=== PATIENT | male | born 1995 | race Caucasian/White ===

== ENCOUNTER → 2018-11-24 | Outpatient (REF) | payer OTHER ==
[~2018-11-24] MED LIST: EFFE37.5 PO; LAMI1TAB7 PO; LEXA1TAB PO; PROZ20CA11 PO; TEGR100T3 PO; ZYPR5TAB2 PO
[2018-11-24 13:07] LABS: HEMATOCRIT 47.4 % (42.0-52.0); HEMOGLOBIN 16.1 g/dl (13.5-17.5); MEAN CORPUSCULAR HEMOGLOBIN 30.1 pg (27.0-33.0); MEAN CORPUSCULAR VOLUME 88.8 fl (80.0-96.0); PLATELET COUNT, AUTOMATED 376 10^3/uL (150-450); RED BLOOD COUNT 5.34 10^6/uL (4.30-6.10); WHITE BLOOD COUNT 8.8 10^3/uL (4.0-10.0)
[2018-11-24 13:13] LABS: APPEARANCE, URINE CLEAR (CLEAR); BACTERIA, URINE AUTO NEGATIVE (NEGATIVE); BILIRUBIN, URINE AUTO NEGATIVE (NEGATIVE); BLOOD, URINE BLOOD NEGATIVE (NEGATIVE); COLOR, URINE YELLOW (YELLOW); GLUCOSE, URINE (UA) AUTO NEGATIVE (NEGATIVE); KETONE, URINE AUTO NEGATIVE (NEGATIVE); LEUKOCYTE ESTERASE, URINE AUTO NEGATIVE (NEGATIVE); MUCUS, URINE SMALL (NEGATIVE); NITRITE, URINE AUTO NEGATIVE (NEGATIVE); PROTEIN, URINE AUTO NEGATIVE (NEGATIVE); RBC, URINE AUTO 0 /HPF (0-3); SPECIFIC GRAVITY URINE AUTO 1.025 (1.002-1.035); SQUAMOUS EPITHELIAL CELL UR AU 0 /HPF (0-6); UROBILINOGEN, URINE AUTO 0.2 mg/dL (0.0-2.0); WBC, URINE AUTO 1 /HPF (0-3)
[2018-11-24 13:40] LABS: ATYPICAL LYMPH 11 % (0-5); BASOPHILS 1 % (0-1); EOSINOPHILS 5 % (0-3); LYMPHOCYTES 43 % (16-44); MONOCYTES 5 % (0-5); NEUTROPHILS 35 % (28-66)
[2018-11-24 13:41] LABS: PLATELET ESTIMATE NORMAL (NORMAL)
[2018-11-24 13:48] LABS: ALT/SGPT 31 U/L (12-78); BILIRUBIN,TOTAL 0.3 MG/DL (0.2-1.0); BLOOD UREA NITROGEN 17 MG/DL (7-18); CALCIUM LEVEL 9.5 MG/DL (8.5-10.1); CARBON DIOXIDE LEVEL 29 MEQ/L (21-32); CHLORIDE LEVEL 105 MEQ/L (98-107); CHOLESTEROL LEVEL 255 MG/DL (<200); CHOLESTEROL RISK RATIO 5.543 (<5); CREATININE FOR GFR 0.94 MG/DL (0.70-1.30); GLOMERULAR FILTRATION RATE > 60.0 (>60); GLUCOSE, FASTING 88 MG/DL (70-100); HDL CHOLESTEROL 46 MG/DL (>40); LDL CHOLESTEROL 173 MG/DL (<100); NON-HDL-C 209 MG/DL; POTASSIUM SERUM 4.4 MEQ/L (3.5-5.1); SODIUM LEVEL 140 MEQ/L (136-145); TOTAL 25(OH) VITAMIN D 27.3 NG/ML (30.0-100.0); TOTAL PROTEIN 7.8 GM/DL (6.4-8.2); TRIGLYCERIDES LEVEL 180 MG/DL (<150)
[2018-11-24 14:43] LABS: CHLAMYDIA DNA AMPLIFICATION NEGATIVE (NEGATIVE); GC DNA AMPLIFICATION NEGATIVE (NEGATIVE)
[2018-11-25 10:27] LABS: HEPATITIS B SURFACE ANTIBODY NEGATIVE (POSITIVE)
[2018-11-25 10:39] LABS: HEPATITIS B SURFACE ANTIGEN NEGATIVE (NEGATIVE)
[2018-11-25 11:06] LABS: HEPATITIS C VIRUS ABY INDEX 0.1 INDEX (<0.8)
[2018-11-25 11:07] LABS: HIV 1&2 SCREEN CENTAUR NEGATIVE (NEGATIVE)
== END ==
LOC: M SFHCCLAY 07:25
PROVIDERS: ATTEND Nurse Practitioner Family
DX: Z11.9 Encounter for screening for infectious and parasitic diseases, unspecified (principal); Z11.4 Encounter for screening for human immunodeficiency virus [HIV]; F31.9 Bipolar disorder, unspecified; G47.00 Insomnia, unspecified; Z13.6 Encounter for screening for cardiovascular disorders; Z13.21 Encounter for screening for nutritional disorder

== ENCOUNTER → 2018-12-10 | Outpatient (REF) | payer OTHER | LOC: M SFHCCLAY 10:00 | PROVIDERS: ATTEND Nurse Practitioner Family | DX: E03.9 Hypothyroidism, unspecified (principal) ==

== ENCOUNTER → 2019-03-17 | Outpatient (REF) | payer OTHER ==
[2019-03-17 13:00] LABS: CHOLESTEROL RISK RATIO 2.793 (<5); THYROID STIMULATING HORMONE 1.67 uIU/ML (0.358-3.740)
[2019-03-17 13:03] LABS: TOTAL 25(OH) VITAMIN D 31.6 NG/ML (30.0-100.0)
== END ==
LOC: M SFHCCLAY 08:23
PROVIDERS: ATTEND Nurse Practitioner Family
DX: E78.5 Hyperlipidemia, unspecified (principal); E03.9 Hypothyroidism, unspecified; E55.9 Vitamin D deficiency, unspecified

== ENCOUNTER 2019-08-14 15:46 | Emergency (ER) | payer OTHER ==
[~2019-08-14] VITALS: Ht 188 cm; Wt 100.0 kg
[2019-08-14 16:28] LABS: HEMOGLOBIN 14.8 g/dl (13.5-17.5); MEAN CORPUSCULAR HGB CONC 33.6 g/dl (32.0-36.5); MEAN CORPUSCULAR VOLUME 86.3 fl (80.0-96.0); PLATELET COUNT, AUTOMATED 358 10^3/uL (150-450); WHITE BLOOD COUNT 11.1 10^3/uL (4.0-10.0)
[2019-08-14] MEDS ORDERED: NS 1,000 ML IV SCH (16:34)
[2019-08-14 16:58] LABS: AMPHETAMINES LEVEL URINE POSITIVE (NEGATIVE); BARBITURATES URINE NEGATIVE (NEGATIVE); BENZODIAZEPINES URINE NEGATIVE (NEGATIVE); CANNABINOIDS URINE POSITIVE (NEGATIVE); COCAINE METABOLITE URINE NEGATIVE (NEGATIVE); METHADONE URINE NEGATIVE (NEGATIVE); OPIATES URINE NEGATIVE (NEGATIVE); PHENCYCLIDINE URINE NEGATIVE (NEGATIVE)
[2019-08-14 17:13] LABS: ACETAMINOPHEN LEVEL < 2.0 UG/ML (10.0-30.0); ALBUMIN 4.4 GM/DL (3.2-5.2); ALT/SGPT 48 U/L (12-78); BILIRUBIN,DIRECT 0.2 MG/DL (0.0-0.2); BILIRUBIN,TOTAL 0.6 MG/DL (0.2-1.0); BLOOD UREA NITROGEN 14 MG/DL (7-18); CALCIUM LEVEL 9.4 MG/DL (8.5-10.1); CARBON DIOXIDE LEVEL 25 MEQ/L (21-32); CHLORIDE LEVEL 107 MEQ/L (98-107); CREATININE FOR GFR 0.79 MG/DL (0.70-1.30); ETHYL ALCOHOL (ETHANOL) < 0.003 % (0.000-0.010); GLOMERULAR FILTRATION RATE > 60.0 (>60); GLUCOSE, FASTING 87 MG/DL (70-100); POTASSIUM SERUM 4.1 MEQ/L (3.5-5.1); SODIUM LEVEL 141 MEQ/L (136-145); THYROID STIMULATING HORMONE 0.978 uIU/ML (0.358-3.740); TOTAL PROTEIN 8.1 GM/DL (6.4-8.2)
--- NOTE | 2019-08-14 19:25 | ECGEPIP ---
[facility] - ED Test Date: 2019-08-14 Pat Name: JARON HA Department: Room: - Gender: Male Medical Logistics Specialist: migdalia : [id number] Requested By: Magdalena Kaba Order Number: [id number] Reading MD: Magdalena Kaba Measurements Intervals [place] Rate: 74 P: 46 MA: 143 QRS: 40 QRSD: 99 T: 46 QT: 360 QTc: 402 Interpretive Statements SINUS RHYTHM NONSPECIFIC ST T WAVE CHANGES CW 03/15/15 RATE INCREASEDD QRS NARROWER NOW Electronically Signed on 08-14-2019 19:25:33 EDT by Magdalena Kaba
[2019-08-14 21:09] VITALS: BP 138/70
== END 2019-08-14 21:11 | disposition home or self-care (01) ==
LOC: M ED 15:46
DX: F19.10 Other psychoactive substance abuse, uncomplicated (principal); F31.9 Bipolar disorder, unspecified; Z88.8 Allergy status to other drugs, medicaments and biological substances
CPT/HCPCS: 80048; 80076; 80307; 84443; 85027; 93005; 93041; 94760; 96360; 96361; 99285; G0480

== ENCOUNTER 2019-10-17 00:30 | Inpatient (IN) | payer MEDICAID, OTHER ==
[2019-10-17] MEDS ORDERED: KETOROLAC 60MG 2ML VIAL ONE (03:35)
[2019-10-17] MEDS ORDERED: MORPHINE 4 MG/ML 1ML VIAL/SYRINGE (J2270) ONE ×2 (03:35→04:21)
[2019-10-21] MEDS ORDERED: NICOTINE 21MG/24HR 1 EA TRANSDERMAL ONE (09:54)
[2019-10-21] MEDS ORDERED: PERCOCET 5MG/325MG TAB ONE (09:54)
[2019-10-21] MEDS ORDERED: ACETAMINOPHEN TAB 650MG DOSE (2X325MG) ONE (09:54)
[2019-10-21] MEDS ORDERED: MAALOX 30 ML SUSP *UDC ONE (09:54)
[2019-10-21] MEDS ORDERED: ENOXAPARIN 40MG/0.4ML SYRINGE (J1650 PER 10MG) ONE (09:54)
[2019-10-21] MEDS ORDERED: IBUPROFEN 800 MG TAB ONE (09:54)
[2019-10-21] MEDS ORDERED: DOCUSATE SODIUM 100 MG CAP ONE (09:54)
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
[2019-12-02 18:37] LABS: HEMATOCRIT 42.3 % (42.0-52.0); HEMOGLOBIN 14.3 g/dl (13.5-17.5); MEAN CORPUSCULAR HEMOGLOBIN 29.4 pg (27.0-33.0); MEAN CORPUSCULAR HGB CONC 33.8 g/dl (32.0-36.5); PLATELET COUNT, AUTOMATED 376 10^3/uL (150-450); RED BLOOD COUNT 4.86 10^6/uL (4.30-6.10); WHITE BLOOD COUNT 16.6 10^3/uL (4.0-10.0)
[2020-01-02 03:26] LABS: BLOOD UREA NITROGEN 21 MG/DL (7-18); CALCIUM LEVEL 9.4 MG/DL (8.5-10.1); CARBON DIOXIDE LEVEL 26 MEQ/L (21-32); CHLORIDE LEVEL 110 MEQ/L (98-107); GLOMERULAR FILTRATION RATE > 60.0 (>60); GLUCOSE, FASTING 108 MG/DL (70-100); POTASSIUM SERUM 4.2 MEQ/L (3.5-5.1); SODIUM LEVEL 143 MEQ/L (136-145)
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
== END 2019-10-21 09:55 | disposition left against medical advice (07) | DRG 342 ==
LOC: M ED 00:30 → M MS5PR 13:00
PROVIDERS: ADMIT Orthopaedic Surgery; ATTEND Orthopaedic Surgery
DX: S92.001A Unspecified fracture of right calcaneus, initial encounter for closed fracture (principal); F10.10 Alcohol abuse, uncomplicated; S92.002A Unspecified fracture of left calcaneus, initial encounter for closed fracture; W17.89XA Other fall from one level to another, initial encounter; Y92.009 Unspecified place in unspecified non-institutional (private) residence as the place of occurrence of the external cause; F12.90 Cannabis use, unspecified, uncomplicated

== ENCOUNTER 2019-10-23 03:45 | Inpatient (IN) | payer MEDICAID, OTHER ==
[~2019-10-23] VITALS: Ht 190.5 cm; Wt 100.0 kg
[2019-10-23] MEDS ORDERED: ACETAMINOPHEN 325 MG TAB As Ordered ONE (05:54)
[2019-10-23] MEDS ORDERED: traMADol 50 MG TAB As Ordered ONE (16:13)
[2019-10-23] MEDS ORDERED: PALIPERIDONE 3 MG ER TAB (INVEGA) As Ordered ONE (21:36)
[2019-10-23] MEDS ORDERED: OLANZapine ORAL DISINTEGRATING TAB 5MG As Ordered ONE (21:37)
[2019-10-23] MEDS ORDERED: traZODone 50 MG TAB As Ordered ONE (21:37)
[2019-10-24] MEDS ORDERED: PALIPERIDONE 3 MG ER TAB (INVEGA) As Ordered ONE ×2 (08:35→21:24)
[2019-10-24] MEDS ORDERED: IBUPROFEN 600MG TAB As Ordered ONE (11:49)
[2019-10-24] MEDS ORDERED: OLANZapine ORAL DISINTEGRATING TAB 5MG As Ordered ONE (13:21)
[2019-10-24] MEDS ORDERED: ACETAMINOPHEN TAB 650MG DOSE (2X325MG) As Ordered ONE (13:21)
[2019-10-24] MEDS ORDERED: NICOTINE 21MG/24HR 1 EA TRANSDERMAL As Ordered ONE (15:05)
[2019-10-25] MEDS ORDERED: IBUPROFEN 600MG TAB As Ordered ONE ×2 (03:57→17:04)
[2019-10-25] MEDS ORDERED: PALIPERIDONE 3 MG ER TAB (INVEGA) As Ordered ONE ×2 (08:36→21:30)
[2019-10-25] MEDS ORDERED: NICOTINE 21MG/24HR 1 EA TRANSDERMAL As Ordered ONE (08:36)
[2019-10-25] MEDS ORDERED: OLANZapine ORAL DISINTEGRATING TAB 5MG As Ordered ONE ×3 (08:36→21:31)
[2019-10-25] MEDS ORDERED: ACETAMINOPHEN TAB 650MG DOSE (2X325MG) As Ordered ONE ×2 (08:37→21:31)
[2019-10-25] MEDS ORDERED: MOM 30ML SUSPENSION UDC As Ordered ONE (19:31)
[2019-10-25] MEDS ORDERED: traZODone 50 MG TAB As Ordered ONE (23:26)
[2019-10-26] MEDS ORDERED: PALIPERIDONE 3 MG ER TAB (INVEGA) As Ordered ONE (08:17)
[2019-10-26] MEDS ORDERED: NICOTINE 21MG/24HR 1 EA TRANSDERMAL As Ordered ONE (08:17)
[2019-10-26] MEDS ORDERED: ACETAMINOPHEN TAB 650MG DOSE (2X325MG) As Ordered ONE (08:17)
[2019-10-26] MEDS ORDERED: OLANZapine ORAL DISINTEGRATING TAB 5MG As Ordered ONE (08:53)
[2019-10-26] MEDS ORDERED: diphenhydrAMINE 50MG/ML VIAL (J1200) As Ordered ONE (12:03)
[2019-10-26] MEDS ORDERED: HALOPERIDOL 5MG/ML VIAL (J1630 PER 1) As Ordered ONE (12:03)
[2019-10-26] MEDS ORDERED: IBUPROFEN 600MG TAB As Ordered ONE (12:03)
[2019-10-26] MEDS ORDERED: LORazepam 2 MG/ML VIAL As Ordered ONE (12:04)
[2019-10-26] MEDS ORDERED: MOM 30ML SUSPENSION UDC PO PRN (18:45)
[2019-10-26] MEDS ORDERED: MAALOX 30 ML SUSP *UDC PO PRN (19:00)
[2019-10-26] MEDS: PALIPERIDONE 3 MG ER TAB (INVEGA) PO SCH (21:38)
[2019-10-26] MEDS: IBUPROFEN 600MG TAB PO PRN (22:12)
[2019-10-27 06:10] VITALS: BP 148/75
[2019-10-27] MEDS: NICOTINE 21MG/24HR 1 EA TRANSDERMAL TD SCH (08:15)
[2019-10-27] MEDS: PALIPERIDONE 3 MG ER TAB (INVEGA) PO SCH ×2 (08:16→21:01)
[2019-10-27] MEDS: IBUPROFEN 600MG TAB PO PRN ×2 (08:17→16:24)
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
--- NOTE | 2019-10-27 08:41 | MHIPNPDOC ---
[facility] Progress Note Progress Note DATE OF SERVICE: 10/27/19 Subjective HPI: Yoandy presents today for a follow-up. Patient notes that he was yelling and screaming. He notes his legs have been in pain. FAMILY HISTORY: Patient notes that home is stable for him at the moment. Objective Behavior: Hyper-verbal and tangential. Affect: Elated. Judgement: Poor. Insight: Poor. Assessment F31.2 Bipolar disorder, current episode manic severe with psychotic features Plan As patient continues to improve, he will eventually be taken off the 1 to 1. Continue Invega 3 mg BID. Add Depakote 250 mg BID to help augment as he appears to still be quite elated. Vital Signs Vital Signs Date Time Temp Pulse Resp B/P (MAP) Pulse Ox O2 Delivery O2 Flow Rate FiO2 10/27/19 06:10 97.0 73 18 148/75 (99) Current Medications Current Medications Medications (Trade) Dose Ordered Sig/Dez Route PRN Reason Start Time Stop Time Status Last Admin Dose Admin Acetaminophen (Tylenol Tab) 650 mg Q6H PRN PO HEADACHE OR DISCOMFORT 10/26/19 19:00 Al Hydrox/Mg Hydrox/Simethicone (Mylanta) 30 ml Q4H PRN PO HEARTBURN/INDIGESTION 10/26/19 19:00 Ibuprofen (Advil) 600 mg Q6H PRN PO PAIN 10/26/19 19:00 10/27/19 08:17 Magnesium Hydroxide (Milk Of Magnesia) 10 ml DAILYPRN PRN PO CONSTIPATION 10/26/19 18:45 Nicotine (Nicoderm Cq 21mg) 1 patch DAILY TD 10/27/19 09:00 Olanzapine (ZyPREXA ZYDIS) 5 mg Q4H PRN PO ANXIETY/AGITATION 10/26/19 19:00 Paliperidone (Invega) 3 mg BID PO 10/26/19 21:00 10/27/19 08:16 Trazodone HCl (Desyrel) 50 mg QHS PRN PO INSOMNIA 10/26/19 19:00 Allergies Coded Allergies: aripiprazole (Verified Allergy, Unknown, 08/14/19) nauseous quetiapine (Verified Allergy, Unknown, 08/14/19) nauseous MARC SKELTON DO Oct 27, 2019 08:41
[2019-10-27] MEDS: ACETAMINOPHEN TAB 650MG DOSE (2X325MG) PO PRN ×2 (11:53→21:01)
[2019-10-27] MEDS: OLANZapine ORAL DISINTEGRATING TAB 5MG PO PRN (14:47)
[2019-10-27 16:46] VITALS: BP 136/68
[2019-10-27] MEDS: traZODone 50 MG TAB PO PRN (21:01)
[2019-10-28 06:53] VITALS: BP 112/70
[2019-10-28] MEDS: OLANZapine ORAL DISINTEGRATING TAB 5MG PO PRN (07:43)
[2019-10-28] MEDS: ACETAMINOPHEN TAB 650MG DOSE (2X325MG) PO PRN ×2 (07:44→19:02)
[2019-10-28] MEDS: PALIPERIDONE 3 MG ER TAB (INVEGA) PO SCH ×2 (09:03→23:20)
[2019-10-28] MEDS: NICOTINE 21MG/24HR 1 EA TRANSDERMAL TD SCH (09:04)
--- NOTE | 2019-10-28 11:47 | MHIPNPDOC ---
[facility] Progress Note Progress Note DATE OF SERVICE: 10/28/19 HPI: Yoandy presents today for a follow-up. Patient notes that he gets irritated when he is hungry. Patient is off the 1 to 1. He notes that he did not want to be a part of society when he was admitted. Patient denies suicidal thoughts. Objective Appearance: Well nourished. Fair hygiene. Appears to be stated age. Well groomed. Mood: Appropriately reactive. Generally good. Less elated euthymic. Speech: Normal rate. Spontaneous and Fluid. Normal volume. More fluid speech. Thought Form: Logical. Linear and goal directed. Judgement: [place] improving. Insight: Insights improving. Assessment F25.9 Schizoaffective disorder, unspecified Plan Patient will be arranged for home services, specifically an orthopedic for his legs. Patient will receive injections of Invega before being discharge. Continuing 3 mg BID, with second shot before potentially leaving on Friday, making good progress, will likely be resolved. Vital Signs Vital Signs Date Time Temp Pulse Resp B/P (MAP) Pulse Ox O2 Delivery O2 Flow Rate FiO2 10/28/19 06:53 97.5 84 18 112/70 (84) Current Medications Current Medications Medications (Trade) Dose Ordered Sig/Dez Route PRN Reason Start Time Stop Time Status Last Admin Dose Admin Acetaminophen (Tylenol Tab) 650 mg Q6H PRN PO HEADACHE OR DISCOMFORT 10/26/19 19:00 10/28/19 07:44 Al Hydrox/Mg Hydrox/Simethicone (Mylanta) 30 ml Q4H PRN PO HEARTBURN/INDIGESTION 10/26/19 19:00 Home Med (Med Rec Complete!) ASDIRECTED XX 10/27/19 09:30 10/27/19 09:31 DC Ibuprofen (Advil) 600 mg Q6H PRN PO PAIN 10/26/19 19:00 10/27/19 16:24 Magnesium Hydroxide (Milk Of Magnesia) 10 ml DAILYPRN PRN PO CONSTIPATION 10/26/19 18:45 Nicotine (Nicoderm Cq 21mg) 1 patch DAILY TD 10/27/19 09:00 10/28/19 09:04 Olanzapine (ZyPREXA ZYDIS) 5 mg Q4H PRN PO ANXIETY/AGITATION 10/26/19 19:00 10/28/19 07:43 Paliperidone (Invega) 3 mg BID PO 10/26/19 21:00 10/28/19 09:03 Trazodone HCl (Desyrel) 50 mg QHS PRN PO INSOMNIA 10/26/19 19:00 10/27/19 21:01 Allergies Coded Allergies: aripiprazole (Verified Allergy, Unknown, 08/14/19) nauseous quetiapine (Verified Allergy, Unknown, 08/14/19) nauseous MARC SKELTON DO Oct 28, 2019 11:47
[2019-10-28] MEDS ORDERED: PALIPERIDONE PALMITATE 234MG/1.5ML INJ (INVEGA)(FREE PSY INPT ONLY) IM ONE (14:00)
[2019-10-28 18:00] VITALS: BP 137/68
[2019-10-29 07:16] VITALS: BP 122/65
--- NOTE | 2019-10-29 08:01 | MHIPNPDOC ---
[facility] Progress Note Progress Note DATE OF SERVICE: 10/29/19 Subjective HPI: Yoandy presents today for a follow up on his medication. He reports his legs are doing well. He denies side effects from current medications. He denies suicidal thoughts. Objective Appearance: Appears to be stated age. Well groomed. Well nourished. Behavior: Cooperative with good eye contact. Pleasant. Engaged. Affect: Appropriate to context. Full range. Mood: Euthymic. Appropriately reactive. Generally good. Speech: Spontaneous and Fluid. Normal rate. Normal volume. Motor: No gross motor abnormalities. Cognition: Alert, Attentive, and Oriented to person, place, time. Memory: No formal testing. No gross abnormalities of short or director home health memory noted during interview. Thought Form: Linear and goal directed. Thought Content: No evidence of delusions. No evidence of suicidal ideation. No thoughts of self harm. No evidence of aggressive or homicidal ideation. Perception: No perceptual abnormalities noted. Judgement: Intact as evidenced by decision making in the recent past. Insight: Good insight into symptoms and treatment options. Assessment F31.0 Bipolar disorder, current episode hypomanic Plan Potential discharge Friday, patient is doing well and returning to normal mental state exam. Give second injection in a week. Vital Signs Vital Signs Date Time Temp Pulse Resp B/P (MAP) Pulse Ox O2 Delivery O2 Flow Rate FiO2 10/29/19 07:16 98.0 94 18 122/65 (84) 99 Room Air Current Medications Current Medications Medications (Trade) Dose Ordered Sig/Dez Route PRN Reason Start Time Stop Time Status Last Admin Dose Admin Acetaminophen (Tylenol Tab) 650 mg Q6H PRN PO HEADACHE OR DISCOMFORT 10/26/19 19:00 10/28/19 19:02 Al Hydrox/Mg Hydrox/Simethicone (Mylanta) 30 ml Q4H PRN PO HEARTBURN/INDIGESTION 10/26/19 19:00 Home Med (Med Rec Complete!) ASDIRECTED XX 10/27/19 09:30 10/27/19 09:31 DC Ibuprofen (Advil) 600 mg Q6H PRN PO PAIN 10/26/19 19:00 10/27/19 16:24 Magnesium Hydroxide (Milk Of Magnesia) 10 ml DAILYPRN PRN PO CONSTIPATION 10/26/19 18:45 Nicotine (Nicoderm Cq 21mg) 1 patch DAILY TD 10/27/19 09:00 10/28/19 09:04 Olanzapine (ZyPREXA ZYDIS) 5 mg Q4H PRN PO ANXIETY/AGITATION 10/26/19 19:00 10/28/19 07:43 Paliperidone (Invega) 3 mg BID PO 10/26/19 21:00 10/28/19 23:20 Trazodone HCl (Desyrel) 50 mg QHS PRN PO INSOMNIA 10/26/19 19:00 10/27/19 21:01 Allergies Coded Allergies: aripiprazole (Verified Allergy, Unknown, 08/14/19) nauseous quetiapine (Verified Allergy, Unknown, 08/14/19) nauseous MARC SKELTON DO Oct 29, 2019 08:01
[2019-10-29] MEDS: NICOTINE 21MG/24HR 1 EA TRANSDERMAL TD SCH (09:00)
[2019-10-29] MEDS: PALIPERIDONE 3 MG ER TAB (INVEGA) PO SCH ×2 (09:28→20:31)
[2019-10-29 16:00] VITALS: BP 126/60
[2019-10-29] MEDS: traZODone 50 MG TAB PO PRN (20:31)
[2019-10-30 06:20] VITALS: BP 100/62
[2019-10-30] MEDS: NICOTINE 21MG/24HR 1 EA TRANSDERMAL TD SCH (08:40)
[2019-10-30] MEDS: PALIPERIDONE 3 MG ER TAB (INVEGA) PO SCH ×2 (08:40→20:09)
[2019-10-30] MEDS ORDERED: MOM 30ML SUSPENSION UDC PO PRN (13:00)
[2019-10-30 16:10] VITALS: BP 124/75
[2019-10-30] MEDS: OLANZapine ORAL DISINTEGRATING TAB 5MG PO PRN (19:51)
[2019-10-30] MEDS: traZODone 50 MG TAB PO PRN (20:09)
[2019-10-31 06:42] VITALS: BP 112/60
[2019-10-31] MEDS ORDERED: PALIPERIDONE PALMITATE 156MG/1ML INJ(INVEGA)(FREE PSY INPT ONLY) IM ONE (09:00)
[2019-10-31] MEDS: NICOTINE 21MG/24HR 1 EA TRANSDERMAL TD SCH (09:00)
[2019-10-31] MEDS: PALIPERIDONE 3 MG ER TAB (INVEGA) PO SCH ×2 (09:32→20:08)
[2019-10-31 16:19] VITALS: BP 138/82
[2019-10-31 16:23] VITALS: BP 121/69
[2019-10-31] MEDS: traZODone 50 MG TAB PO PRN (20:08)
[2019-10-31] MEDS: OLANZapine ORAL DISINTEGRATING TAB 5MG PO PRN (23:32)
[2019-11-01 06:16] VITALS: BP 116/71
[2019-11-01] MEDS: NICOTINE 21MG/24HR 1 EA TRANSDERMAL TD SCH (09:00)
[2019-11-01] MEDS: PALIPERIDONE 3 MG ER TAB (INVEGA) PO SCH ×2 (09:24→21:54)
--- NOTE | 2019-11-01 11:39 | MHIPNPDOC ---
[facility] Progress Note Progress Note DATE OF SERVICE: 11/01/19 Subjective HPI: Yoandy presents today for a check-in. He is currently trying to figure out whether to use a wheelchair or crutches based off mobility and healing issues, and whether there is equipment for him to take home. Objective Appearance: Well groomed. Well nourished. Appears to be stated age. Behavior: Engaged. Pleasant. Cooperative with good eye contact. Affect: Appropriate to context. Full range. Mood: Generally good. Appropriately reactive. Euthymic. Speech: Spontaneous and Fluid. Normal rate. Normal volume. Motor: No gross motor abnormalities. Cognition: Alert, Attentive, and Oriented to person, place, time. Memory: No formal testing. No gross abnormalities of short or care home memory noted during interview. Thought Form: Linear and goal directed. Thought Content: No thoughts of self harm. No evidence of suicidal ideation. No evidence of delusions. No evidence of aggressive or homicidal ideation. Perception: No perceptual abnormalities noted. Judgement: Intact as evidenced by decision making in the recent past. Insight: Good insight into symptoms and treatment options. Assessment F31.10 Bipolar disorder, current episode manic without psychotic features, unspecified Plan Patient will be discharged tomorrow and will need to obtain wheelchair Wheelchair and PT issues are primarily holding up discharge Patient does not require any oral medications once he leaves Vital Signs Vital Signs Date Time Temp Pulse Resp B/P (MAP) Pulse Ox O2 Delivery O2 Flow Rate FiO2 11/01/19 06:16 97.8 55 16 116/71 (86) 10/30/19 06:20 Room Air 10/29/19 07:16 99 Current Medications Current Medications Medications (Trade) Dose Ordered Sig/Dez Route PRN Reason Start Time Stop Time Status Last Admin Dose Admin Acetaminophen (Tylenol Tab) 650 mg Q6H PRN PO HEADACHE OR DISCOMFORT 10/26/19 19:00 10/28/19 19:02 Al Hydrox/Mg Hydrox/Simethicone (Mylanta) 30 ml Q4H PRN PO HEARTBURN/INDIGESTION 10/26/19 19:00 Home Med (Med Rec Complete!) ASDIRECTED XX 10/27/19 09:30 10/27/19 09:31 DC Ibuprofen (Advil) 600 mg Q6H PRN PO PAIN 10/26/19 19:00 10/27/19 16:24 Magnesium Hydroxide (Milk Of Magnesia) 10 ml DAILYPRN PRN PO CONSTIPATION 10/26/19 18:45 10/30/19 13:01 DC Magnesium Hydroxide (Milk Of Magnesia) 30 ml DAILYPRN PRN PO CONSTIPATION 10/30/19 13:00 Nicotine (Nicoderm Cq 21mg) 1 patch DAILY TD 10/27/19 09:00 10/28/19 09:04 Olanzapine (ZyPREXA ZYDIS) 5 mg Q4H PRN PO ANXIETY/AGITATION 10/26/19 19:00 10/31/19 23:32 Paliperidone (Invega) 3 mg BID PO 10/26/19 21:00 11/01/19 09:24 Trazodone HCl (Desyrel) 50 mg QHS PRN PO INSOMNIA 10/26/19 19:00 10/31/19 20:08 Allergies Coded Allergies: aripiprazole (Verified Allergy, Unknown, 08/14/19) nauseous quetiapine (Verified Allergy, Unknown, 08/14/19) nauseous MARC SKELTON DO Nov 01, 2019 11:39
[2019-11-01 17:35] VITALS: BP 133/77
[2019-11-02 06:50] VITALS: BP 147/72
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
[2019-11-02] MEDS ORDERED: INVE156I IM (08:11)
[2019-11-02] MEDS ORDERED: NICO21PAT TD (08:11)
[2019-11-02] MEDS: NICOTINE 21MG/24HR 1 EA TRANSDERMAL TD SCH (09:00)
[2019-11-02] MEDS: PALIPERIDONE 3 MG ER TAB (INVEGA) PO SCH (09:18)
[2019-12-06 13:34] LABS: BASO % 0.3 % (0.0-1.0); EOS # 0.1 10^3/uL (0.0-0.5); EOS % 1.3 % (0.0-3.0); HEMATOCRIT 44.1 % (42.0-52.0); HEMOGLOBIN 15.5 g/dl (13.5-17.5); LYMPH # 2.9 10^3/uL (1.5-5.0); LYMPH % 26.3 % (24.0-44.0); MEAN CORPUSCULAR HGB CONC 35.1 g/dl (32.0-36.5); MEAN CORPUSCULAR VOLUME 85.3 fl (80.0-96.0); MONO # 1.2 10^3/uL (0.0-0.8); MONO % 10.6 % (0.0-5.0); NEUTROPHILS # 6.8 10^3/uL (1.5-8.5); NEUTROPHILS % 61.2 % (36.0-66.0); PLATELET COUNT, AUTOMATED 440 10^3/uL (150-450); RED BLOOD COUNT 5.17 10^6/uL (4.30-6.10); WHITE BLOOD COUNT 11.1 10^3/uL (4.0-10.0)
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
--- NOTE | 2019-12-18 12:50 | MHIPN ---
DATE: 10/25/2019 NOTE: I just want to clarify that the computer system in the hospital has been down for awhile now and so the only information I have on this patient is what was obtained from the Emergency Room Record. HISTORY OF PRESENT ILLNESS: The patient was brought to the interview room in his wheelchair because he fractured his heels when he jumped off of a building. The patient became very angry because I asked him that I wanted him to maintain a certain appropriate distance due to the current Coronavirus Pandemic. As I said he became angry and he told me that he did not want to talk to me and he wanted to leave the room. MENTAL STATUS EXAM: I am unable to complete. DIAGNOSIS: Unspecified psychiatric disorder. TREATMENT PLAN: The plan of course will be to continue his current treatment. Currently the patient is on Invega at this point. JOSE
[2020-01-16 11:49] LABS: ACETAMINOPHEN LEVEL < 2.0 UG/ML (10.0-30.0); ALBUMIN 4.3 GM/DL (3.2-5.2); ALT/SGPT 32 U/L (12-78); AMPHETAMINES LEVEL URINE NEGATIVE (NEGATIVE); BARBITURATES URINE NEGATIVE (NEGATIVE); BENZODIAZEPINES URINE NEGATIVE (NEGATIVE); BILIRUBIN,DIRECT 0.3 MG/DL (0.0-0.2); BILIRUBIN,TOTAL 0.9 MG/DL (0.2-1.0); BLOOD UREA NITROGEN 20 MG/DL (7-18); CALCIUM LEVEL 10.3 MG/DL (8.5-10.1); CANNABINOIDS URINE POSITIVE (NEGATIVE); CARBON DIOXIDE LEVEL 26 MEQ/L (21-32); CHLORIDE LEVEL 106 MEQ/L (98-107); COCAINE METABOLITE URINE POSITIVE (NEGATIVE); CREATININE FOR GFR 0.97 MG/DL (0.70-1.30); ETHYL ALCOHOL (ETHANOL) < 0.003 % (0.000-0.010); GLOMERULAR FILTRATION RATE > 60.0 (>60); GLUCOSE, FASTING 105 MG/DL (70-100); METHADONE URINE NEGATIVE (NEGATIVE); OPIATES URINE NEGATIVE (NEGATIVE); PHENCYCLIDINE URINE NEGATIVE (NEGATIVE); POTASSIUM SERUM 4.5 MEQ/L (3.5-5.1); SALICYLATE LEVEL < 1.7 MG/DL (5.0-30.0); SODIUM LEVEL 137 MEQ/L (136-145); TOTAL PROTEIN 8.1 GM/DL (6.4-8.2)
== END 2019-11-02 15:30 | disposition home or self-care (01) | DRG 753 ==
LOC: M ED 03:45 → M PSY 06:38
PROVIDERS: ADMIT Psychiatry & Neurology Psychiatry; ATTEND Psychiatry & Neurology Addiction Medicine
DX: F31.9 Bipolar disorder, unspecified (principal); Z88.8 Allergy status to other drugs, medicaments and biological substances

== ENCOUNTER 2019-11-08 20:08 | Inpatient (IN) | payer MEDICAID, OTHER ==
[~2019-11-08] VITALS: Ht 190.5 cm; Wt 107.0 kg
[~2019-11-08 20:08] MED LIST changes: +INVE156I IM; +NICO21PAT TD
[2019-11-08] MEDS ORDERED: LORazepam 1 MG TAB PO ONE (20:30)
[2019-11-08] MEDS ORDERED: INVE156I IM (21:57)
[2019-11-08] MEDS ORDERED: MOM 30ML SUSPENSION UDC PO PRN (22:00)
[2019-11-08] MEDS ORDERED: MAALOX 30 ML SUSP *UDC PO PRN (22:00)
[2019-11-08 23:01] VITALS: BP 152/82
[2019-11-08] MEDS: traZODone 50 MG TAB PO PRN (23:26)
[2019-11-09 06:27] VITALS: BP 111/59
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
[2019-11-09] MEDS ORDERED: VENLAFAXINE **XR** 37.5 MG CAPSULE PO ONE (11:30)
[2019-11-09 17:56] VITALS: BP 101/49
[2019-11-09] MEDS: OXcarbazepine 150 MG TAB PO SCH (20:32)
[2019-11-09] MEDS: traZODone 50 MG TAB PO PRN (20:32)
[2019-11-09] MEDS ORDERED: OXcarbazepine 150 MG TAB PO SCH (21:00)
[2019-11-10 06:46] VITALS: BP 130/63
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
[2019-11-10] MEDS: VENLAFAXINE **XR** 37.5 MG CAPSULE PO SCH (09:08)
[2019-11-10] MEDS ORDERED: hydrOXYzine 25 MG TAB PO ONE (12:00)
[2019-11-10] MEDS: hydrOXYzine 25 MG TAB PO PRN (17:47)
[2019-11-10 17:57] VITALS: BP 121/57
[2019-11-10] MEDS: traZODone 50 MG TAB PO PRN (20:15)
[2019-11-10] MEDS: OXcarbazepine 150 MG TAB PO SCH (20:15)
--- NOTE | 2019-11-10 20:20 | HPEPDOC ---
[facility] Medical History & Physical Date of Admission Nov 09, 2019 Date of Service: Nov 10, 2019 History and Physical CHIEF COMPLAINT: suicidal ideation HISTORY OF PRESENT ILLNESS: presenting for inpatient behavioral health management for suicidal ideation. PAST MEDICAL HISTORY: no known conditions PAST SURGICAL HISTORY: no recent surgeries SOCIAL HISTORY: Tobacco use:denied ETOH: denied Illicit drug use: denied FAMILY HISTORY: Father: HTN, CAD Mother: DM ALLERGIES: Please see below. REVIEW OF SYSTEMS: CONSTITUTIONAL: no weight loss, no fevers, no chills HEENT: no headaches, no vision changes CARDIOVASCULAR: no CP, no palpitations RESPIRATORY: no SOB, no ciugh GASTROINTESTINAL: no n/v GENITOURINARY: no dysuria SKIN: no rash MUSCULOSKELETAL: no pain HOME MEDICATIONS: Please see below. PHYSICAL EXAMINATION: VITAL SIGNS: see below GENERAL APPEARANCE: no acute distress HEENT: normocephalic CARDIOVASCULAR: RRR LUNGS: clear on auscultation ABDOMEN: soft, nontender MUSCULOSKELETAL: grossly normal NEUROLOGICAL: no focal deficits PSYCHIATRIC: normal mood LABORATORY DATA: See below. IMAGING: MICROBIOLOGY: Please see below. ASSESSMENT and PLAN 24 y.o M with no known medical conditions presented for inpatient treatment of major depressive disorder following SI - continue psych treatment per psychiatrist -no known medical conditions Vital Signs Vital Signs Date Time Temp Pulse Resp B/P (MAP) Pulse Ox O2 Delivery O2 Flow Rate FiO2 11/10/19 17:57 99.1 94 16 121/57 (78) 11/10/19 06:46 Room Air 11/08/19 23:01 96 Home Medications Scheduled Paliperidone Palmitate (Invega Sustenna) 156 Mg/1 Ml Syringe, 156 MG IM QMONTH Allergies Coded Allergies: haloperidol (Verified Adverse Reaction, Intermediate, EPS RXN WITH UNSPECIFIED ANTIPSYCHOTROPICS, 11/08/19) aripiprazole (Verified Adverse Reaction, Mild, 11/08/19) nauseous quetiapine (Verified Adverse Reaction, Mild, 11/08/19) nauseous A-FIB/CHADSVASC A-FIB History Current/History of A-Fib/PAF?: No Current PO Anticoag Therapy: No CONCHA GALEAS DO Nov 10, 2019 20:20
[2019-11-11 07:03] VITALS: BP 102/50
--- NOTE | 2019-11-11 08:11 | MHIPNPDOC ---
[facility] Progress Note Progress Note DATE OF SERVICE: 11/11/19 Subjective HPI: Dewey presents today for a regular recheck. He notes that he is not sleeping well at night, and he notes that Clonidine used to help him stay asleep as a child. He states that he is dreaming again at night after years of not being able to dream. He denies suicidal ideation. He states that he wants to stay in the facility until he feels he is ready to leave. Objective Appearance: Good hygiene. Speech: Spontaneous and Fluid. Thought Form: Linear and logical. Friendly, although mildly anxious due to situational issues on the unit. Thought Content: Denies any suicidal or homicidal ideation. Judgement: Fair. Insight: Fair. Assessment F31.32 Bipolar disorder, current episode depressed, moderate Plan Increase Trileptal to 300 mg nightly. Continue Effexor 75 mg extended release. Will add Clonidine 0.1 mg QHS for sleep as patient reports broken sleep, which is a significant problem for his bipolar disorder in previous episodes of nuria. Will continue on a voluntary status, estimate discharge potentially next week as patient resolves. Will encourage patient to engage fully. Vital Signs Vital Signs Date Time Temp Pulse Resp B/P (MAP) Pulse Ox O2 Delivery O2 Flow Rate FiO2 11/11/19 07:03 97.8 60 16 102/50 (67) 98 Room Air Current Medications Current Medications Medications (Trade) Dose Ordered Sig/Dez Route PRN Reason Start Time Stop Time Status Last Admin Dose Admin Acetaminophen (Tylenol Tab) 650 mg Q6HP PRN PO HEADACHE or DISCOMFORT 11/08/19 22:00 Al Hydrox/Mg Hydrox/Simethicone (Mylanta) 30 ml Q4HP PRN PO HEARTBURN/INDIGESTION 11/08/19 22:00 Home Med (Med Rec Complete!) ASDIRECTED XX 11/08/19 22:00 11/08/19 21:59 DC Hydroxyzine HCl (Atarax) 25 mg Q4HP PRN PO ANXIETY/AGITATION 11/10/19 16:00 11/10/19 17:47 Magnesium Hydroxide (Milk Of Magnesia) 30 ml DAILYPRN PRN PO CONSTIPATION 11/08/19 22:00 Oxcarbazepine (Trileptal) 75 mg BID PO 11/09/19 21:00 11/09/19 11:42 DC Oxcarbazepine (Trileptal) 150 mg QHS PO 11/09/19 21:00 11/10/19 20:15 Trazodone HCl (Desyrel) 50 mg QHSP PRN PO INSOMNIA 11/08/19 22:00 11/10/19 20:15 Venlafaxine HCl (Effexor Xr) 37.5 mg DAILY PO 11/10/19 09:00 11/10/19 09:08 Allergies Coded Allergies: haloperidol (Verified Adverse Reaction, Intermediate, EPS RXN WITH UNSPECIFIED ANTIPSYCHOTROPICS, 11/08/19) aripiprazole (Verified Adverse Reaction, Mild, 11/08/19) nauseous quetiapine (Verified Adverse Reaction, Mild, 11/08/19) nauseous MARC SKELTON DO Nov 11, 2019 08:11
[2019-11-11] MEDS: VENLAFAXINE **XR** 37.5 MG CAPSULE PO SCH (08:18)
[2019-11-11] MEDS: hydrOXYzine 25 MG TAB PO PRN (12:44)
[2019-11-11 16:46] VITALS: BP 136/63
[2019-11-11] MEDS: cloNIDine 0.1 MG TAB PO SCH (20:23)
[2019-11-11] MEDS: OXcarbazepine 150 MG TAB PO SCH (20:25)
[2019-11-12 06:29] VITALS: BP 113/51
[2019-11-12] MEDS: ACETAMINOPHEN TAB 650MG DOSE (2X325MG) PO PRN ×2 (08:16→18:41)
[2019-11-12] MEDS: VENLAFAXINE **XR** 37.5 MG CAPSULE PO SCH (08:16)
--- NOTE | 2019-11-12 10:25 | MHIPNPDOC ---
[facility] Progress Note Progress Note DATE OF SERVICE: 11/12/19 HPI: Dewey presents today for concerns regarding his heel pain. Patient is taking pain medication in order to alleviate his heel pain. He is asking for an x-ray. He denies of suicidal thoughts , but he is lack of motivation due to pandemic. Patient doesnt know how he feels about life. He also admits having photographic memory, and he needs a lot of therapy. Patient reports having episode for one year long. Patient met with today. He reports he is having some dysphoria and reports that he feels somewhat upset. He reports he has been thinking a lot about court issues, but its become much more anxious and depressed. The patient reports that he feels like he is coming against his depression out. He reports that the increase Trileptal to 300 have been helpful with his mood becoming more stable. Staff reporting he is still friendly in minimal although smiley more late and unusual. MEDICATIONS: He is currently taking antidepressant . Patient reports that higher dose of antidepressant can calm him down. MEDICAL HISTORY: Patient has history of bipolar depression. FAMILY HISTORY: In regard to family history, his sister ( Melva) has episode. Objective Appearance: Appears to be stated age. Well nourished. Well groomed. Speech: Spontaneous and Fluid. Normal rate. Normal volume. Cognition: Alert, Attentive, and Oriented to person, place, time. Thought Form: Linear and goal directed. logical. Thought Content: No evidence of aggressive or homicidal ideation. No evidence of delusions. No thoughts of self harm. No evidence of suicidal ideation. Has a r elatively labile affect. Judgement: Intact as evidenced by decision making in the recent past. Assessment F31.30 Bipolar disorder, current episode depressed, mild or moderate severity, unspecified Plan Bipolar disorder, current episode depressed. Discontinue the Effexor as it could be causing acid syndrome, which is antidepressant associated chronic dysphoria and irritability. Continue Trileptal 300 mg nightly and Clonidine, His invega will likely do well with a mood stabilizer, especially given his history of bipolar disorder. Will continue to monitor patient reports as he continues to want to stay to get treatment. Vital Signs Vital Signs Date Time Temp Pulse Resp B/P (MAP) Pulse Ox O2 Delivery O2 Flow Rate FiO2 11/12/19 06:29 98.1 64 12 113/51 (71) 95 Room Air Current Medications Current Medications Medications (Trade) Dose Ordered Sig/Dez Route PRN Reason Start Time Stop Time Status Last Admin Dose Admin Acetaminophen (Tylenol Tab) 650 mg Q6HP PRN PO HEADACHE or DISCOMFORT 11/08/19 22:00 11/12/19 08:16 Al Hydrox/Mg Hydrox/Simethicone (Mylanta) 30 ml Q4HP PRN PO HEARTBURN/INDIGESTION 11/08/19 22:00 Clonidine HCl (Catapres) 0.1 mg QHS PO 11/11/19 21:00 11/11/19 20:23 Home Med (Med Rec Complete!) ASDIRECTED XX 11/08/19 22:00 11/08/19 21:59 DC Hydroxyzine HCl (Atarax) 25 mg Q4HP PRN PO ANXIETY/AGITATION 11/10/19 16:00 11/11/19 12:44 Magnesium Hydroxide (Milk Of Magnesia) 30 ml DAILYPRN PRN PO CONSTIPATION 11/08/19 22:00 Oxcarbazepine (Trileptal) 75 mg BID PO 11/09/19 21:00 11/09/19 11:42 DC Oxcarbazepine (Trileptal) 150 mg QHS PO 11/09/19 21:00 11/11/19 10:16 DC 11/10/19 20:15 Oxcarbazepine (Trileptal) 300 mg QHS PO 11/11/19 21:00 11/11/19 20:25 Trazodone HCl (Desyrel) 50 mg QHSP PRN PO INSOMNIA 11/08/19 22:00 11/10/19 20:15 Venlafaxine HCl (Effexor Xr) 37.5 mg DAILY PO 11/10/19 09:00 11/12/19 08:16 Allergies Coded Allergies: haloperidol (Verified Adverse Reaction, Intermediate, EPS RXN WITH UNSPECIFIED ANTIPSYCHOTROPICS, 11/08/19) aripiprazole (Verified Adverse Reaction, Mild, 11/08/19) nauseous quetiapine (Verified Adverse Reaction, Mild, 11/08/19) nauseous MARC SKELTON DO Nov 12, 2019 10:25
[2019-11-12] MEDS: hydrOXYzine 25 MG TAB PO PRN ×2 (11:26→18:38)
[2019-11-12] MEDS: cloNIDine 0.1 MG TAB PO SCH (20:05)
[2019-11-12] MEDS: OXcarbazepine 150 MG TAB PO SCH (20:05)
[2019-11-13 06:21] VITALS: BP 95/51
[2019-11-13] MEDS: ACETAMINOPHEN TAB 650MG DOSE (2X325MG) PO PRN (18:00)
[2019-11-13] MEDS: OXcarbazepine 150 MG TAB PO SCH (20:27)
[2019-11-13] MEDS: cloNIDine 0.1 MG TAB PO SCH (20:28)
[2019-11-14 06:37] VITALS: BP 94/44
[2019-11-14] MEDS: ACETAMINOPHEN TAB 650MG DOSE (2X325MG) PO PRN (18:29)
[2019-11-14 18:41] VITALS: BP 145/73
[2019-11-14] MEDS: OXcarbazepine 150 MG TAB PO SCH (20:36)
[2019-11-14] MEDS: cloNIDine 0.1 MG TAB PO SCH (20:36)
[2019-11-15] MEDS: traZODone 50 MG TAB PO PRN ×2 (00:53→21:18)
[2019-11-15 06:29] VITALS: BP 106/50
[2019-11-15 17:52] VITALS: BP 111/57
[2019-11-15] MEDS: ACETAMINOPHEN TAB 650MG DOSE (2X325MG) PO PRN (18:32)
[2019-11-15] MEDS: OXcarbazepine 150 MG TAB PO SCH (20:37)
[2019-11-15] MEDS: cloNIDine 0.1 MG TAB PO SCH (20:40)
[2019-11-16 06:18] VITALS: BP 115/68
--- NOTE | 2019-11-16 09:50 | MHIPNPDOC ---
[facility] Progress Note Progress Note DATE OF SERVICE: 11/16/19 Subjective HPI: Patient I met with today reports that hes not doing as well. Reports that he was very upset about being interrupted during a discussion about his trauma. Objective Appearance: Well nourished. Well groomed. Appears to be stated age. Affect: Mildly labile. Mood: Bad. Speech: Normal volume. Normal rate. Spontaneous and Fluid. Cognition: Alert, Attentive, and Oriented to person, place, time. Thought Form: Linear and goal directed. Judgement: Fair. Insight: Fair. Assessment F31.9 Bipolar disorder, unspecified Plan Continue Trileptal and likely increase to 300 mg daily. Invega shot previously given. Discontinue Effexor as its possibly causing some mixed features. Vital Signs Vital Signs Date Time Temp Pulse Resp B/P (MAP) Pulse Ox O2 Delivery O2 Flow Rate FiO2 11/16/19 06:18 98.0 71 16 115/68 (84) 100 Room Air Current Medications Current Medications Medications (Trade) Dose Ordered Sig/Dez Route PRN Reason Start Time Stop Time Status Last Admin Dose Admin Acetaminophen (Tylenol Tab) 650 mg Q6HP PRN PO HEADACHE or DISCOMFORT 11/08/19 22:00 11/15/19 18:32 Al Hydrox/Mg Hydrox/Simethicone (Mylanta) 30 ml Q4HP PRN PO HEARTBURN/INDIGESTION 11/08/19 22:00 Clonidine HCl (Catapres) 0.1 mg QHS PO 11/11/19 21:00 11/15/19 20:40 Home Med (Med Rec Complete!) ASDIRECTED XX 11/08/19 22:00 11/08/19 21:59 DC Hydroxyzine HCl (Atarax) 25 mg Q4HP PRN PO ANXIETY/AGITATION 11/10/19 16:00 11/12/19 18:38 Magnesium Hydroxide (Milk Of Magnesia) 30 ml DAILYPRN PRN PO CONSTIPATION 11/08/19 22:00 Oxcarbazepine (Trileptal) 75 mg BID PO 11/09/19 21:00 11/09/19 11:42 DC Oxcarbazepine (Trileptal) 150 mg QHS PO 11/09/19 21:00 11/11/19 10:16 DC 11/10/19 20:15 Oxcarbazepine (Trileptal) 300 mg QHS PO 11/11/19 21:00 11/15/19 20:37 Trazodone HCl (Desyrel) 50 mg QHSP PRN PO INSOMNIA 11/08/19 22:00 11/15/19 21:18 Venlafaxine HCl (Effexor Xr) 37.5 mg DAILY PO 11/10/19 09:00 11/12/19 11:24 DC 11/12/19 08:16 Allergies Coded Allergies: haloperidol (Verified Adverse Reaction, Intermediate, EPS RXN WITH UNSPECIFIED ANTIPSYCHOTROPICS, 11/08/19) aripiprazole (Verified Adverse Reaction, Mild, 11/08/19) nauseous quetiapine (Verified Adverse Reaction, Mild, 11/08/19) nauseous MARC SKELTON DO Nov 16, 2019 09:50
[2019-11-16] MEDS: hydrOXYzine 25 MG TAB PO PRN (11:18)
[2019-11-16] MEDS ORDERED: LORazepam 0.5 MG TAB PO ONE (11:30)
[2019-11-16 18:00] VITALS: BP 128/65
[2019-11-16] MEDS: OXcarbazepine 150 MG TAB PO SCH (20:03)
[2019-11-16] MEDS: traZODone 50 MG TAB PO PRN (20:03)
[2019-11-16] MEDS: cloNIDine 0.1 MG TAB PO SCH (20:03)
[2019-11-17 06:25] VITALS: BP 110/54
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
[2019-11-17] MEDS: OXcarbazepine 150 MG TAB PO SCH ×2 (09:45→19:58)
[2019-11-17 17:58] VITALS: BP 115/57
[2019-11-17] MEDS: LORazepam 0.5 MG TAB PO PRN (19:57)
[2019-11-17] MEDS: cloNIDine 0.1 MG TAB PO SCH (19:57)
[2019-11-17] MEDS: traZODone 50 MG TAB PO PRN (19:57)
[2019-11-18 06:39] VITALS: BP 125/55
--- NOTE | 2019-11-18 07:48 | MHIPNPDOC ---
[facility] Progress Note Progress Note DATE OF SERVICE: 11/18/19 Subjective HPI: Dewey was evaluated in the inpatient mental health unit. Patient continues to have suicidal ideations. MEDICATIONS: He is tolerating his medications well. Objective Appearance: Appears to be stated age. Well nourished. Does not appear grossly psychotic. Well groomed. Affect: Dysthymic. Cognition: grossly intact. Alert, Attentive, and Oriented to person, place, time. Thought Form: Linear and goal directed. Logical. Thought Content: No evidence of aggressive or homicidal ideation. No evidence of delusions. No thoughts of self harm. Reports of some fleeting SI from time to time. Judgement: fair. Insight: fair. Assessment F31.30 Bipolar disorder, current episode depressed, mild or moderate severity, unspecified Plan Continue Trileptal as well as Invega. Will seek out [facility] vs [facility] once discharge planners have returned. Vital Signs Vital Signs Date Time Temp Pulse Resp B/P (MAP) Pulse Ox O2 Delivery O2 Flow Rate FiO2 11/18/19 06:39 97.2 93 14 125/55 (78) 98 Room Air Laboratory Data [facility] Labs Laboratory Tests 2 11/17/19 21:45: Coronavirus (COVID-19)(PCR) NEGATIVE Current Medications Current Medications Medications (Trade) Dose Ordered Sig/Dez Route PRN Reason Start Time Stop Time Status Last Admin Dose Admin Acetaminophen (Tylenol Tab) 650 mg Q6HP PRN PO HEADACHE or DISCOMFORT 11/08/19 22:00 11/15/19 18:32 Al Hydrox/Mg Hydrox/Simethicone (Mylanta) 30 ml Q4HP PRN PO HEARTBURN/INDIGESTION 11/08/19 22:00 Clonidine HCl (Catapres) 0.1 mg QHS PO 11/11/19 21:00 11/17/19 19:57 Home Med (Med Rec Complete!) ASDIRECTED XX 11/08/19 22:00 11/08/19 21:59 DC Hydroxyzine HCl (Atarax) 25 mg Q4HP PRN PO ANXIETY/AGITATION 11/10/19 16:00 11/16/19 11:18 Lorazepam (Ativan) 0.5 mg DAILYPRN PRN PO ANXIETY 11/16/19 11:30 11/17/19 19:57 Magnesium Hydroxide (Milk Of Magnesia) 30 ml DAILYPRN PRN PO CONSTIPATION 11/08/19 22:00 Oxcarbazepine (Trileptal) 75 mg BID PO 11/09/19 21:00 11/09/19 11:42 DC Oxcarbazepine (Trileptal) 150 mg QHS PO 11/09/19 21:00 11/11/19 10:16 DC 11/10/19 20:15 Oxcarbazepine (Trileptal) 300 mg BID PO 11/16/19 21:00 11/17/19 19:58 Oxcarbazepine (Trileptal) 300 mg QHS PO 11/11/19 21:00 11/16/19 11:29 DC 11/15/19 20:37 Trazodone HCl (Desyrel) 50 mg QHSP PRN PO INSOMNIA 11/08/19 22:00 11/17/19 19:57 Venlafaxine HCl (Effexor Xr) 37.5 mg DAILY PO 11/10/19 09:00 11/12/19 11:24 DC 11/12/19 08:16 Allergies Coded Allergies: haloperidol (Verified Adverse Reaction, Intermediate, EPS RXN WITH UNSPECIFIED ANTIPSYCHOTROPICS, 11/08/19) aripiprazole (Verified Adverse Reaction, Mild, 11/08/19) nauseous quetiapine (Verified Adverse Reaction, Mild, 11/08/19) nauseMARC Mason DO Nov 18, 2019 07:48
[2019-11-18] MEDS: OXcarbazepine 150 MG TAB PO SCH ×2 (10:10→21:34)
[2019-11-18] MEDS: hydrOXYzine 25 MG TAB PO PRN ×2 (13:44→21:54)
[2019-11-18 15:12] VITALS: BP 151/72
[2019-11-18] MEDS: cloNIDine 0.1 MG TAB PO SCH (21:35)
[2019-11-18] MEDS: traZODone 50 MG TAB PO PRN (21:54)
[2019-11-18] MEDS: LORazepam 0.5 MG TAB PO PRN (21:55)
[2019-11-19 06:54] VITALS: BP 100/50
[2019-11-19] MEDS: OXcarbazepine 150 MG TAB PO SCH ×2 (09:51→22:06)
--- NOTE | 2019-11-19 10:40 | MHIPNPDOC ---
[facility] Progress Note Progress Note DATE OF SERVICE: 11/19/19 Subjective HPI: Dewey presents today for concerns regarding his sleep quality and current mood. Patient reports that he is having difficulty sleeping. He notes that he is experiencing nightmares and PTSD. Patient states that he is still having suicidal thoughts, he says that he does not care to live. He mentions that he is a very congregation person and states God wants me to go get more treatment. Objective Appearance: Fair hygeine. Somewhat sleepy and disheveled. Affect: Dysthemic and constricted. Speech: Spontaneous and Fluid. Normal volume. Normal rate. Cognition: Grossly intact. Alert, Attentive, and Oriented to person, place, time. Thought Form: Linear and logical. Thought Content: Suicidal thoughts present. No evidence of aggressive or homicidal ideation. Report some passive SI from time to time. No evidence of delusions. Judgement: Intact as evidenced by decision making in the recent past. Inside judgement is fair. Assessment R45.851 Suicidal ideations F43.10 Post-traumatic stress disorder, unspecified F51.4 Sleep terrors [night terrors] G47.00 Insomnia, unspecified F31.31 Bipolar disorder, current episode depressed, mild Plan Prescribed medication to improve sleep quality. Continue Invega, Trileptal, and possibly augment with Ambien versus Trazodone. Patient does have reported night terrors. However, its unclear as to the nature of them. Vital Signs Vital Signs Date Time Temp Pulse Resp B/P (MAP) Pulse Ox O2 Delivery O2 Flow Rate FiO2 11/19/19 06:54 97.4 57 12 100/50 (67) Room Air 11/18/19 06:39 98 Current Medications Current Medications Medications (Trade) Dose Ordered Sig/Dez Route PRN Reason Start Time Stop Time Status Last Admin Dose Admin Acetaminophen (Tylenol Tab) 650 mg Q6HP PRN PO HEADACHE or DISCOMFORT 11/08/19 22:00 11/15/19 18:32 Al Hydrox/Mg Hydrox/Simethicone (Mylanta) 30 ml Q4HP PRN PO HEARTBURN/INDIGESTION 11/08/19 22:00 Clonidine HCl (Catapres) 0.1 mg QHS PO 11/11/19 21:00 11/18/19 21:35 Home Med (Med Rec Complete!) ASDIRECTED XX 11/08/19 22:00 11/08/19 21:59 DC Hydroxyzine HCl (Atarax) 25 mg Q4HP PRN PO ANXIETY/AGITATION 11/10/19 16:00 11/18/19 21:54 Lorazepam (Ativan) 0.5 mg DAILYPRN PRN PO ANXIETY 11/16/19 11:30 11/18/19 21:55 Magnesium Hydroxide (Milk Of Magnesia) 30 ml DAILYPRN PRN PO CONSTIPATION 11/08/19 22:00 Oxcarbazepine (Trileptal) 75 mg BID PO 11/09/19 21:00 11/09/19 11:42 DC Oxcarbazepine (Trileptal) 150 mg QHS PO 11/09/19 21:00 11/11/19 10:16 DC 11/10/19 20:15 Oxcarbazepine (Trileptal) 300 mg BID PO 11/16/19 21:00 11/19/19 09:51 Oxcarbazepine (Trileptal) 300 mg QHS PO 11/11/19 21:00 11/16/19 11:29 DC 11/15/19 20:37 Trazodone HCl (Desyrel) 50 mg QHSP PRN PO INSOMNIA 11/08/19 22:00 11/18/19 21:54 Venlafaxine HCl (Effexor Xr) 37.5 mg DAILY PO 11/10/19 09:00 11/12/19 11:24 DC 11/12/19 08:16 Allergies Coded Allergies: haloperidol (Verified Adverse Reaction, Intermediate, EPS RXN WITH UNSPECIFIED ANTIPSYCHOTROPICS, 11/08/19) aripiprazole (Verified Adverse Reaction, Mild, 11/08/19) nauseous quetiapine (Verified Adverse Reaction, Mild, 11/08/19) nauseous MARC SKELTON DO Nov 19, 2019 10:40
[2019-11-19 18:06] VITALS: BP 131/86
[2019-11-19] MEDS: cloNIDine 0.1 MG TAB PO SCH (22:06)
[2019-11-20 06:48] VITALS: BP 112/58
[2019-11-20] MEDS: OXcarbazepine 150 MG TAB PO SCH ×2 (10:43→20:42)
[2019-11-20] MEDS: hydrOXYzine 25 MG TAB PO PRN ×2 (11:36→19:52)
[2019-11-20 18:00] VITALS: BP 163/76
[2019-11-20] MEDS: cloNIDine 0.1 MG TAB PO SCH (20:42)
[2019-11-20] MEDS: traZODone 50 MG TAB PO PRN (23:30)
[2019-11-20] MEDS: LORazepam 0.5 MG TAB PO PRN (23:30)
[2019-11-21 06:27] VITALS: BP 143/66
[2019-11-21] MEDS: OXcarbazepine 150 MG TAB PO SCH ×2 (10:13→21:49)
[2019-11-21] MEDS: LORazepam 0.5 MG TAB PO PRN (12:25)
--- NOTE | 2019-11-21 16:11 | MHIPNPDOC ---
[facility] Progress Note Progress Note DATE OF SERVICE: 11/21/19 HISTORY: According to HPI: " Dewey presents today for concerns regarding his depression that is new onset. The patient presented to the ER after reporting suicidal thoughts and increase in depression after being recently treated in our unit for bipolar nuria. He additionally alluded that he had multiple stressors in the form of a court case and charges from the time he was manic. He reports that he would like to be admitted to the inpatient mental health unit and has obliged. He reports no symptoms of nuria or psychosis at this time. History of most recent suicide attempt by jumping off a car building. No other medical problems at this time. He does report at times using drugs, but only when he was manic." VITAL SIGNS: See below. NEW TEST RESULTS: See below CURRENT MEDICATIONS: See below. MENTAL STATUS EXAMINATION: Patient is a 24-year old male, who is alert, cooperative, dressed in hospital clothes, fidgety, restless, pleasant Speech: Is spontaneous and fluent, normal in rate, tone and volume. Language skills are good. Thought processes including: linear and coherent. Thought content: anxious thoughts regarding his previous traumatic experiences, anxious about some other patients. Denies SI/HI, denies TAV hallucinations Description of abnormal or psychotic thoughts: Denies thought delusions, denies TAV hallucinations Judgment: Improving Insight: Improving Orientation: x 3 Recent and remote memory: Intact Attention span and concentration: Good Language: adequate. Fund of knowledge: good Mood: anxious Affect: congruent with mood, reactive, full. DIAGNOSES: R45.851 Suicidal ideations F43.10 Post-traumatic stress disorder, unspecified F51.4 Sleep terrors [night terrors] G47.00 Insomnia, unspecified F31.31 Bipolar disorder, current episode depressed, mild ASSESSMENT: The patient is upset because there's 2 female patients that have been disruptive while in groups. He says they trigger previous traumatic memories and experiences because one of them reminds him of his mother. He tels me about his previous trauma history, which he parish had talked about while h was at the Medical [facility] and I ran a consult on him. He is clearly anxious, he says he fels as if he is dissociating because he can't feel pain when other people feel pain. H says he would like to receive some therapy and for that reason he wants to go to [facility] [place], so that he will receive CBT. He says he has nightmares but he was taking Clonidine and I decided to discontinue this medication and start him on Prazosin 1 mg PO "QHS for nightmares and I have increased his Trazodone to 100 mgs PO QHS. I also increased his Ativan dose because he is visibly anxious. MANAGEMENT PLAN: Please read above TIME SPENT: 20 minutes. Vital Signs Vital Signs Date Time Temp Pulse Resp B/P (MAP) Pulse Ox O2 Delivery O2 Flow Rate FiO2 11/21/19 06:27 97.6 54 16 143/66 (91) 97 Room Air Current Medications Current Medications Medications (Trade) Dose Ordered Sig/Dez Route PRN Reason Start Time Stop Time Status Last Admin Dose Admin Acetaminophen (Tylenol Tab) 650 mg Q6HP PRN PO HEADACHE or DISCOMFORT 11/08/19 22:00 11/15/19 18:32 Al Hydrox/Mg Hydrox/Simethicone (Mylanta) 30 ml Q4HP PRN PO HEARTBURN/INDIGESTION 11/08/19 22:00 Clonidine HCl (Catapres) 0.1 mg QHS PO 11/11/19 21:00 11/21/19 13:48 DC 11/20/19 20:42 Home Med (Med Rec Complete!) ASDIRECTED XX 11/08/19 22:00 11/08/19 21:59 DC Hydroxyzine HCl (Atarax) 25 mg Q4HP PRN PO ANXIETY/AGITATION 11/10/19 16:00 11/20/19 19:52 Lorazepam (Ativan) 0.5 mg DAILYPRN PRN PO ANXIETY 11/16/19 11:30 11/21/19 13:46 DC 11/21/19 12:25 Lorazepam (Ativan) 1 mg BIDP PRN PO ANXIETY 11/21/19 13:45 Magnesium Hydroxide (Milk Of Magnesia) 30 ml DAILYPRN PRN PO CONSTIPATION 11/08/19 22:00 Oxcarbazepine (Trileptal) 75 mg BID PO 11/09/19 21:00 11/09/19 11:42 DC Oxcarbazepine (Trileptal) 150 mg QHS PO 11/09/19 21:00 11/11/19 10:16 DC 11/10/19 20:15 Oxcarbazepine (Trileptal) 300 mg BID PO 11/16/19 21:00 11/21/19 10:13 Oxcarbazepine (Trileptal) 300 mg QHS PO 11/11/19 21:00 11/16/19 11:29 DC 11/15/19 20:37 Prazosin HCl (Minipress) 1 mg QHS PO 11/21/19 21:00 Trazodone HCl (Desyrel) 50 mg QHSP PRN PO INSOMNIA 11/08/19 22:00 11/21/19 13:50 DC 11/20/19 23:30 Trazodone HCl (Desyrel) 100 mg QHSP PRN PO INSOMNIA 11/21/19 14:00 Venlafaxine HCl (Effexor Xr) 37.5 mg DAILY PO 11/10/19 09:00 11/12/19 11:24 DC 11/12/19 08:16 Allergies Coded Allergies: haloperidol (Verified Adverse Reaction, Intermediate, EPS RXN WITH UNSPE CIFIED ANTIPSYCHOTROPICS, 11/08/19) aripiprazole (Verified Adverse Reaction, Mild, 11/08/19) nauseous quetiapine (Verified Adverse Reaction, Mild, 11/08/19) nauseous SHELTON PRESCOTT MD Nov 21, 2019 16:03
[2019-11-21 18:00] VITALS: BP 127/59
[2019-11-21] MEDS: PRAZOSIN 1 MG CAP PO SCH (21:49)
[2019-11-21] MEDS: traZODone 100 MG TAB PO PRN (21:49)
[2019-11-21] MEDS: hydrOXYzine 25 MG TAB PO PRN (23:05)
[2019-11-22 06:03] VITALS: BP 134/61
[2019-11-22] MEDS: OXcarbazepine 150 MG TAB PO SCH ×2 (09:19→20:43)
--- NOTE | 2019-11-22 10:13 | MHIPNPDOC ---
[facility] Progress Note Progress Note DATE OF SERVICE: 11/22/19 Subjective HPI: Dewey presents today for follow-up. He reports that he finds it difficult to be here as many of the patients activate him. He reports various PTSD symptoms and intrusive thoughts activated by various hypersexual other patients. Objective Appearance: Hygiene fair. Mood: Euthymic. Irritable. Cognition: Alert, Attentive, and Oriented to person, place, time. Thought Form: Linear and goal directed. Thought Content: No evidence of aggressive or homicidal ideation. No evidence of delusions. No evidence of suicidal ideation. No thoughts of self harm. Judgement: Intact as evidenced by decision making in the recent past. Insight: Good insight into symptoms and treatment options. Assessment F31.60 Bipolar disorder, current episode mixed, unspecified F43.10 Post-traumatic stress disorder, unspecified Plan Continue Prazosin, Trileptal, & Invega. Will refer to long-term, however, in the off-chance, will refer to Transitional Living Services. Apartment program could be good option for him. Vital Signs Vital Signs Date Time Temp Pulse Resp B/P (MAP) Pulse Ox O2 Delivery O2 Flow Rate FiO2 11/22/19 06:03 97.8 58 16 134/61 (85) 97 Room Air Current Medications Current Medications Medications (Trade) Dose Ordered Sig/Dez Route PRN Reason Start Time Stop Time Status Last Admin Dose Admin Acetaminophen (Tylenol Tab) 650 mg Q6HP PRN PO HEADACHE or DISCOMFORT 11/08/19 22:00 11/15/19 18:32 Al Hydrox/Mg Hydrox/Simethicone (Mylanta) 30 ml Q4HP PRN PO HEARTBURN/INDIGESTION 11/08/19 22:00 Clonidine HCl (Catapres) 0.1 mg QHS PO 11/11/19 21:00 11/21/19 13:48 DC 11/20/19 20:42 Home Med (Med Rec Complete!) ASDIRECTED XX 11/08/19 22:00 11/08/19 21:59 DC Hydroxyzine HCl (Atarax) 25 mg Q4HP PRN PO ANXIETY/AGITATION 11/10/19 16:00 11/21/19 23:05 Lorazepam (Ativan) 0.5 mg DAILYPRN PRN PO ANXIETY 11/16/19 11:30 11/21/19 13:46 DC 11/21/19 12:25 Lorazepam (Ativan) 1 mg BIDP PRN PO ANXIETY 11/21/19 13:45 Magnesium Hydroxide (Milk Of Magnesia) 30 ml DAILYPRN PRN PO CONSTIPATION 11/08/19 22:00 Oxcarbazepine (Trileptal) 75 mg BID PO 11/09/19 21:00 11/09/19 11:42 DC Oxcarbazepine (Trileptal) 150 mg QHS PO 11/09/19 21:00 11/11/19 10:16 DC 11/10/19 20:15 Oxcarbazepine (Trileptal) 300 mg BID PO 11/16/19 21:00 11/22/19 09:19 Oxcarbazepine (Trileptal) 300 mg QHS PO 11/11/19 21:00 11/16/19 11:29 DC 11/15/19 20:37 Prazosin HCl (Minipress) 1 mg QHS PO 11/21/19 21:00 11/21/19 21:49 Trazodone HCl (Desyrel) 50 mg QHSP PRN PO INSOMNIA 11/08/19 22:00 11/21/19 13:50 DC 11/20/19 23:30 Trazodone HCl (Desyrel) 100 mg QHSP PRN PO INSOMNIA 11/21/19 14:00 11/21/19 21:49 Venlafaxine HCl (Effexor Xr) 37.5 mg DAILY PO 11/10/19 09:00 11/12/19 11:24 DC 11/12/19 08:16 Allergies Coded Allergies: haloperidol (Verified Adverse Reaction, Intermediate, EPS RXN WITH UNSPECIFIED ANTIPSYCHOTROPICS, 11/08/19) aripiprazole (Verified Adverse Reaction, Mild, 11/08/19) nauseous quetiapine (Verified Adverse Reaction, Mild, 11/08/19) nauseMARC Mason DO Nov 22, 2019 10:13
[2019-11-22 16:42] VITALS: BP 112/56
[2019-11-22] MEDS: PRAZOSIN 1 MG CAP PO SCH (20:43)
[2019-11-22] MEDS: traZODone 100 MG TAB PO PRN (22:11)
[2019-11-22] MEDS: LORazepam 1 MG TAB PO PRN (22:25)
[2019-11-23 06:30] VITALS: BP 142/73
[2019-11-23] MEDS: OXcarbazepine 150 MG TAB PO SCH ×2 (10:21→20:38)
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
[2019-11-23 16:18] VITALS: BP 110/72
[2019-11-23] MEDS: LORazepam 1 MG TAB PO PRN (20:38)
[2019-11-23] MEDS: PRAZOSIN 1 MG CAP PO SCH (20:38)
[2019-11-23] MEDS: hydrOXYzine 25 MG TAB PO PRN (21:24)
[2019-11-24 06:13] VITALS: BP 94/47
--- NOTE | 2019-11-24 09:45 | MHIPNPDOC ---
[facility] Progress Note Progress Note DATE OF SERVICE: 11/24/19 Subjective HPI: Dewey presents today for concerns regarding a regular recheck. He reports unusual homicidal thoughts towards one of the nurses. When asked the nurse reports that she doesnt interact with him very much at all and is confused by this. The patient reports that she is very angry and stressed out but doesnt describe this further. He still attends to groups and reports that he is still feeling depressed. He reports that the Trileptal has been helping him feel more level, but that he still feels down at times. Objective Affect: Full range. Mildly dysthymic. Appropriate to context. Mood: Generally good. Euthymic. Appropriately reactive. Not angry. Thought Form: Linear and goal directed. Thought Content: Vague homicidal thoughts but doesnt appear to have any plan or intention. No thoughts of self harm. No evidence of delusions. No evidence of suicidal ideation. Judgement: Intact as evidenced by decision making in the recent past. Assessment F31.9 Bipolar disorder, unspecified F43.12 Post-traumatic stress disorder, chronic Plan Plan is to discuss the patient. It appears these are probably more angry thoughts as he doesnt harbor any thoughts of wanting to kill this individual, but it does appear that he might feel a need to justify his further stay. He reports he is currently working on various feelings. His Trileptal will be increased to 450 mg BID. Doubled mood stability in case this is a sign of a mixed episode or other phase of bipolar. Currently process for referral for TLS and SLPC. Vital Signs Vital Signs Date Time Temp Pulse Resp B/P (MAP) Pulse Ox O2 Delivery O2 Flow Rate FiO2 11/24/19 06:13 98.8 56 18 94/47 (63) 11/22/19 06:03 97 Room Air Current Medications Current Medications Medications (Trade) Dose Ordered Sig/Dez Route PRN Reason Start Time Stop Time Status Last Admin Dose Admin Acetaminophen (Tylenol Tab) 650 mg Q6HP PRN PO HEADACHE or DISCOMFORT 11/08/19 22:00 11/15/19 18:32 Al Hydrox/Mg Hydrox/Simethicone (Mylanta) 30 ml Q4HP PRN PO HEARTBURN/INDIGESTION 11/08/19 22:00 Clonidine HCl (Catapres) 0.1 mg QHS PO 11/11/19 21:00 11/21/19 13:48 DC 11/20/19 20:42 Home Med (Med Rec Complete!) ASDIRECTED XX 11/08/19 22:00 11/08/19 21:59 DC Hydroxyzine HCl (Atarax) 25 mg Q4HP PRN PO ANXIETY/AGITATION 11/10/19 16:00 11/23/19 21:24 Lorazepam (Ativan) 0.5 mg DAILYPRN PRN PO ANXIETY 11/16/19 11:30 11/21/19 13:46 DC 11/21/19 12:25 Lorazepam (Ativan) 1 mg BIDP PRN PO ANXIETY 11/21/19 13:45 11/23/19 20:38 Magnesium Hydroxide (Milk Of Magnesia) 30 ml DAILYPRN PRN PO CONSTIPATION 11/08/19 22:00 Oxcarbazepine (Trileptal) 75 mg BID PO 11/09/19 21:00 11/09/19 11:42 DC Oxcarbazepine (Trileptal) 150 mg QHS PO 11/09/19 21:00 11/11/19 10:16 DC 11/10/19 20:15 Oxcarbazepine (Trileptal) 300 mg BID PO 11/16/19 21:00 11/23/19 20:38 Oxcarbazepine (Trileptal) 300 mg QHS PO 11/11/19 21:00 11/16/19 11:29 DC 11/15/19 20:37 Prazosin HCl (Minipress) 1 mg QHS PO 11/21/19 21:00 11/23/19 20:38 Trazodone HCl (Desyrel) 50 mg QHSP PRN PO INSOMNIA 11/08/19 22:00 11/21/19 13:50 DC 11/20/19 23:30 Trazodone HCl (Desyrel) 100 mg QHSP PRN PO INSOMNIA 11/21/19 14:00 11/22/19 22:11 Venlafaxine HCl (Effexor Xr) 37.5 mg DAILY PO 11/10/19 09:00 11/12/19 11:24 DC 11/12/19 08:16 Allergies Coded Allergies: haloperidol (Verified Adverse Reaction, Intermediate, EPS RXN WITH UNSPECIFIED ANTIPSYCHOTROPICS, 11/08/19) aripiprazole (Verified Adverse Reaction, Mild, 11/08/19) nauseous quetiapine (Verified Adverse Reaction, Mild, 11/08/19) nauseous MARC SKELTON DO Nov 24, 2019 09:45
[2019-11-24] MEDS: OXcarbazepine 150 MG TAB PO SCH ×2 (10:09→20:09)
[2019-11-24 16:00] VITALS: BP 128/61
[2019-11-24] MEDS: LORazepam 1 MG TAB PO PRN (20:10)
[2019-11-24] MEDS: PRAZOSIN 1 MG CAP PO SCH (20:10)
[2019-11-24] MEDS: traZODone 100 MG TAB PO PRN (20:10)
[2019-11-25 06:54] VITALS: BP 116/55
--- NOTE | 2019-11-25 09:29 | MHIPNPDOC ---
[facility] Progress Note Progress Note DATE OF SERVICE: 11/25/19 Subjective HPI: Dewey presents today for concerns regarding his bipolar symptoms. He reports that he feels like hes unraveling. He feels more distorted than usual, and hes having difficulty with low mood. He reports hes trying to find a routine. He has some unusual ideations and is noticeably more irritable at times. Patient reports that he doesnt feel safe. He has thoughts of wanting to kill himself. He reports that last night, he had thoughts of wanting to hang himself, but had not. MEDICATIONS: He is ambivalent about changing medications. He reports no side effects from his medications, but hes very insistent about wanting to go on a long-term treatment. Objective Appearance: Fair. Speech: Spontaneous and Fluid. Normal volume. Normal rate. Cognition: Appears impaired, secondary to somewhat circumstantial thought process. Judgement: Intact as evidenced by decision making in the recent past. Insight: Good insight into symptoms and treatment options. Assessment F31.60 Bipolar disorder, current episode mixed, unspecified F43.10 Post-traumatic stress disorder, unspecified Plan Continue Trileptal, 450 mg, BID. Discussed with patient about Cariprazine, as this could be a useful option instead of for mixed episodes. However, patient was ambivalent and did not want to try it, as he was concerned it would throw off his routine that he has established here and that it would make him overly sedated. Referral to [place] in process. TB screening to be done, as well as COVID-19 test. Vital Signs Vital Signs Date Time Temp Pulse Resp B/P (MAP) Pulse Ox O2 Delivery O2 Flow Rate FiO2 11/25/19 06:54 97.6 65 14 116/55 (75) 98 Room Air Current Medications Current Medications Medications (Trade) Dose Ordered Sig/Dez Route PRN Reason Start Time Stop Time Status Last Admin Dose Admin Acetaminophen (Tylenol Tab) 650 mg Q6HP PRN PO HEADACHE or DISCOMFORT 11/08/19 22:00 11/15/19 18:32 Al Hydrox/Mg Hydrox/Simethicone (Mylanta) 30 ml Q4HP PRN PO HEARTBURN/INDIGESTION 11/08/19 22:00 Clonidine HCl (Catapres) 0.1 mg QHS PO 11/11/19 21:00 11/21/19 13:48 DC 11/20/19 20:42 Home Med (Med Rec Complete!) ASDIRECTED XX 11/08/19 22:00 11/08/19 21:59 DC Hydroxyzine HCl (Atarax) 25 mg Q4HP PRN PO ANXIETY/AGITATION 11/10/19 16:00 11/23/19 21:24 Lorazepam (Ativan) 0.5 mg DAILYPRN PRN PO ANXIETY 11/16/19 11:30 11/21/19 13:46 DC 11/21/19 12:25 Lorazepam (Ativan) 1 mg BIDP PRN PO ANXIETY 11/21/19 13:45 11/24/19 20:10 Magnesium Hydroxide (Milk Of Magnesia) 30 ml DAILYPRN PRN PO CONSTIPATION 11/08/19 22:00 Oxcarbazepine (Trileptal) 75 mg BID PO 11/09/19 21:00 11/09/19 11:42 DC Oxcarbazepine (Trileptal) 150 mg QHS PO 11/09/19 21:00 11/11/19 10:16 DC 11/10/19 20:15 Oxcarbazepine (Trileptal) 300 mg BID PO 11/16/19 21:00 11/24/19 10:24 DC 11/24/19 10:09 Oxcarbazepine (Trileptal) 300 mg QHS PO 11/11/19 21:00 11/16/19 11:29 DC 11/15/19 20:37 Oxcarbazepine (Trileptal) 450 mg BID PO 11/24/19 21:00 11/24/19 20:09 Prazosin HCl (Minipress) 1 mg QHS PO 11/21/19 21:00 11/24/19 20:10 Trazodone HCl (Desyrel) 50 mg QHSP PRN PO INSOMNIA 11/08/19 22:00 11/21/19 13:50 DC 11/20/19 23:30 Trazodone HCl (Desyrel) 100 mg QHSP PRN PO INSOMNIA 11/21/19 14:00 11/24/19 20:10 Venlafaxine HCl (Effexor Xr) 37.5 mg DAILY PO 11/10/19 09:00 11/12/19 11:24 DC 11/12/19 08:16 Allergies Coded Allergies: haloperidol (Verified Adverse Reaction, Intermediate, EPS RXN WITH UNSPECIFIED ANTIPSYCHOTROPICS, 11/08/19) aripiprazole (Verified Adverse Reaction, Mild, 11/08/19) nauseous quetiapine (Verified Adverse Reaction, Mild, 11/08/19) nauseous MARC SKELTON DO Nov 25, 2019 09:29
[2019-11-25] MEDS: OXcarbazepine 150 MG TAB PO SCH ×2 (09:47→20:06)
[2019-11-25] MEDS ORDERED: TUBERCULIN PPD 5 UNITS/0.1 ML ID ONE (12:00)
[2019-11-25] MEDS: LORazepam 1 MG TAB PO PRN (15:01)
[2019-11-25] MEDS: hydrOXYzine 25 MG TAB PO PRN ×2 (15:01→20:06)
[2019-11-25 18:20] VITALS: BP 136/65
[2019-11-25] MEDS: traZODone 100 MG TAB PO PRN (20:06)
[2019-11-25] MEDS: PRAZOSIN 1 MG CAP PO SCH (20:07)
[2019-11-26 06:58] VITALS: BP 109/58
[2019-11-26] MEDS: OXcarbazepine 150 MG TAB PO SCH ×2 (10:01→20:31)
--- NOTE | 2019-11-26 10:09 | MHIPNPDOC ---
[facility] Progress Note Progress Note DATE OF SERVICE: 11/26/19 Subjective HPI: patient is met with today, reports that he is getting better with his routine, but still reports at times he feels angry and lashes out at others, he reports he still not interested in trying the new medicine as he doesn't want to change his current routine. Staff report he has become increasingly more agitated and unpredictable. MEDICATIONS: He is ambivalent about changing medications. He reports no side effects from his medications, but hes very insistent about wanting to go on a long-term treatment. Objective Appearance: Fair. Speech: Spontaneous and Fluid. Normal volume. Normal rate. Cognition: Appears impaired, secondary to somewhat circumstantial thought process. Judgement: Intact as evidenced by decision making in the recent past. Insight: Good insight into symptoms and treatment options. Assessment F31.60 Bipolar disorder, current episode mixed, unspecified F43.10 Post-traumatic stress disorder, unspecified Plan Continue Trileptal, 450 mg, BID. Discussed with patient about Cariprazine, as this could be a useful option instead of for mixed episodes. However, patient was ambivalent and did not want to try it, as he was concerned it would throw off his routine that he has established here and that it would make him overly sedated. Referral to [place] in process. TB screening to be done, as well as COVID-19 test. Vital Signs Vital Signs Date Time Temp Pulse Resp B/P (MAP) Pulse Ox O2 Delivery O2 Flow Rate FiO2 11/26/19 06:58 97.1 69 15 109/58 (75) 99 Room Air Current Medications Current Medications Medications (Trade) Dose Ordered Sig/Dez Route PRN Reason Start Time Stop Time Status Last Admin Dose Admin Acetaminophen (Tylenol Tab) 650 mg Q6HP PRN PO HEADACHE or DISCOMFORT 11/08/19 22:00 11/15/19 18:32 Al Hydrox/Mg Hydrox/Simethicone (Mylanta) 30 ml Q4HP PRN PO HEARTBURN/INDIGESTION 11/08/19 22:00 Clonidine HCl (Catapres) 0.1 mg QHS PO 11/11/19 21:00 11/21/19 13:48 DC 11/20/19 20:42 Home Med (Med Rec Complete!) ASDIRECTED XX 11/08/19 22:00 11/08/19 21:59 DC Hydroxyzine HCl (Atarax) 25 mg Q4HP PRN PO ANXIETY/AGITATION 11/10/19 16:00 11/25/19 20:06 Lorazepam (Ativan) 0.5 mg DAILYPRN PRN PO ANXIETY 11/16/19 11:30 11/21/19 13:46 DC 11/21/19 12:25 Lorazepam (Ativan) 1 mg BIDP PRN PO ANXIETY 11/21/19 13:45 11/25/19 15:01 Magnesium Hydroxide (Milk Of Magnesia) 30 ml DAILYPRN PRN PO CONSTIPATION 11/08/19 22:00 Oxcarbazepine (Trileptal) 75 mg BID PO 11/09/19 21:00 11/09/19 11:42 DC Oxcarbazepine (Trileptal) 150 mg QHS PO 11/09/19 21:00 11/11/19 10:16 DC 11/10/19 20:15 Oxcarbazepine (Trileptal) 300 mg BID PO 11/16/19 21:00 11/24/19 10:24 DC 11/24/19 10:09 Oxcarbazepine (Trileptal) 300 mg QHS PO 11/11/19 21:00 11/16/19 11:29 DC 11/15/19 20:37 Oxcarbazepine (Trileptal) 450 mg BID PO 11/24/19 21:00 11/26/19 10:01 Prazosin HCl (Minipress) 1 mg QHS PO 11/21/19 21:00 11/25/19 20:07 Trazodone HCl (Desyrel) 50 mg QHSP PRN PO INSOMNIA 11/08/19 22:00 11/21/19 13:50 DC 11/20/19 23:30 Trazodone HCl (Desyrel) 100 mg QHSP PRN PO INSOMNIA 11/21/19 14:00 11/25/19 20:06 Venlafaxine HCl (Effexor Xr) 37.5 mg DAILY PO 11/10/19 09:00 11/12/19 11:24 DC 11/12/19 08:16 Allergies Coded Allergies: haloperidol (Verified Adverse Reaction, Intermediate, EPS RXN WITH UNSPECIFIED ANTIPSYCHOTROPICS, 11/08/19) aripiprazole (Verified Adverse Reaction, Mild, 11/08/19) nauseous quetiapine (Verified Adverse Reaction, Mild, 11/08/19) nauseous [facility] SKELTON DO Nov 26, 2019 10:09
[2019-11-26] MEDS: LORazepam 1 MG TAB PO PRN ×2 (11:23→20:31)
[2019-11-26 16:16] VITALS: BP 120/58
[2019-11-26] MEDS: PRAZOSIN 1 MG CAP PO SCH (20:31)
[2019-11-26] MEDS: traZODone 100 MG TAB PO PRN (22:23)
[2019-11-27 06:28] VITALS: BP 128/56
[2019-11-27] MEDS: OXcarbazepine 150 MG TAB PO SCH ×2 (09:15→20:19)
[2019-11-27] MEDS: LORazepam 1 MG TAB PO PRN (10:33)
[2019-11-27] MEDS ORDERED: PPD DOCUMENTATION ENTRY MISC XX ONE (12:00)
[2019-11-27 16:14] VITALS: BP 125/58
[2019-11-27] MEDS: PRAZOSIN 1 MG CAP PO SCH (20:19)
[2019-11-27] MEDS: traZODone 100 MG TAB PO PRN (21:57)
[2019-11-28 06:24] VITALS: BP 115/59
[2019-11-28] MEDS: OXcarbazepine 150 MG TAB PO SCH (09:34)
[2019-11-28] MEDS ORDERED: CARIPRAZINE 1.5MG CAPSULE (VRAYLAR) PO ONE (13:30)
[2019-11-28] MEDS: LORazepam 1 MG TAB PO PRN (13:57)
[2019-11-28 16:20] VITALS: BP 134/65
[2019-11-28] MEDS: hydrOXYzine 25 MG TAB PO PRN (16:51)
[2019-11-28] MEDS: PRAZOSIN 1 MG CAP PO SCH (21:30)
[2019-11-29 06:15] VITALS: BP 112/55
[2019-11-29] MEDS: CARIPRAZINE 1.5MG CAPSULE (VRAYLAR) PO SCH (08:54)
[2019-11-29 17:47] VITALS: BP 137/61
[2019-11-29] MEDS: hydrOXYzine 25 MG TAB PO PRN (20:46)
[2019-11-29] MEDS: LORazepam 1 MG TAB PO PRN (20:46)
[2019-11-29] MEDS: PRAZOSIN 1 MG CAP PO SCH (20:47)
[2019-11-30 06:28] VITALS: BP 113/54
--- NOTE | 2019-11-30 09:28 | MHIPNPDOC ---
[facility] Progress Note Progress Note DATE OF SERVICE: 11/30/19 Subjective HPI: Yoandy presents today for concerns regarding his psych issues. The patient is met with today where he reports that he feels somewhat better after trying the Vraylar. He reports that he felt extraordinarily angry and anxious and that he even wanted to get into a fight with an individual over the weekend. He reports that he is open to AOT and really wants extra help. He reports that he feels con fused by his current situation. Objective Appearance: Fair hygiene. Appears to be stated age. Affect: Generally euthymic. Cognition: Grossly intact. Alert, Attentive, and Oriented to person, place, time. Thought Form: Linear and goal directed. Generally logical, Pleasent and engaged. Judgement: Fair. Insight: Fair. Assessment F31.60 Bipolar disorder, current episode mixed, unspecified F43.10 Post-traumatic stress disorder, unspecified Plan AOT coordinator referral to be done. AOT coordinator will meet with patient. Will at this time cease trying to get patient [facility] as AOT coordinator could provide outpatient services, that would be more appropriate for the patients needs as well as engage him in getting an AOT. The patient is amenable on a voluntary and could do well quite well with an AOT petition being completed along with TLS and other services much more effectively than if he was an [facility] Vital Signs Vital Signs Date Time Temp Pulse Resp B/P (MAP) Pulse Ox O2 Delivery O2 Flow Rate FiO2 11/30/19 06:28 97.7 60 15 113/54 (73) 99 Room Air Current Medications Current Medications Medications (Trade) Dose Ordered Sig/Dez Route PRN Reason Start Time Stop Time Status Last Admin Dose Admin Acetaminophen (Tylenol Tab) 650 mg Q6HP PRN PO HEADACHE or DISCOMFORT 11/08/19 22:00 11/15/19 18:32 Al Hydrox/Mg Hydrox/Simethicone (Mylanta) 30 ml Q4HP PRN PO HEARTBURN/INDIGESTION 11/08/19 22:00 Cariprazine (Vraylar) 1.5 mg DAILY PO 11/29/19 09:00 11/29/19 08:54 Clonidine HCl (Catapres) 0.1 mg QHS PO 11/11/19 21:00 11/21/19 13:48 DC 11/20/19 20:42 Home Med (Med Rec Complete!) ASDIRECTED XX 11/08/19 22:00 11/08/19 21:59 DC Hydroxyzine HCl (Atarax) 25 mg Q4HP PRN PO ANXIETY/AGITATION 11/10/19 16:00 11/29/19 20:46 Lorazepam (Ativan) 0.5 mg DAILYPRN PRN PO ANXIETY 11/16/19 11:30 11/21/19 13:46 DC 11/21/19 12:25 Lorazepam (Ativan) 1 mg BIDP PRN PO ANXIETY 11/21/19 13:45 11/29/19 20:46 Magnesium Hydroxide (Milk Of Magnesia) 30 ml DAILYPRN PRN PO CONSTIPATION 11/08/19 22:00 Oxcarbazepine (Trileptal) 75 mg BID PO 11/09/19 21:00 11/09/19 11:42 DC Oxcarbazepine (Trileptal) 150 mg QHS PO 11/09/19 21:00 11/11/19 10:16 DC 11/10/19 20:15 Oxcarbazepine (Trileptal) 300 mg BID PO 11/16/19 21:00 11/24/19 10:24 DC 11/24/19 10:09 Oxcarbazepine (Trileptal) 300 mg QHS PO 11/11/19 21:00 11/16/19 11:29 DC 11/15/19 20:37 Oxcarbazepine (Trileptal) 450 mg BID PO 11/24/19 21:00 11/28/19 13:29 DC 11/28/19 09:34 Prazosin HCl (Minipress) 1 mg QHS PO 11/21/19 21:00 11/29/19 20:47 Trazodone HCl (Desyrel) 50 mg QHSP PRN PO INSOMNIA 11/08/19 22:00 11/21/19 13:50 DC 11/20/19 23:30 Trazodone HCl (Desyrel) 100 mg QHSP PRN PO INSOMNIA 11/21/19 14:00 11/27/19 21:57 Venlafaxine HCl (Effexor Xr) 37.5 mg DAILY PO 11/10/19 09:00 11/12/19 11:24 DC 11/12/19 08:16 Allergies Coded Allergies: haloperidol (Verified Adverse Reaction, Intermediate, EPS RXN WITH UNSPECIFIED ANTIPSYCHOTROPICS, 11/08/19) aripiprazole (Verified Adverse Reaction, Mild, 11/08/19) nauseous quetiapine (Verified Adverse Reaction, Mild, 11/08/19) nauseous MARC SKELTON DO Nov 30, 2019 09:28
[2019-11-30] MEDS: CARIPRAZINE 1.5MG CAPSULE (VRAYLAR) PO SCH (09:38)
[2019-11-30 18:17] VITALS: BP 130/71
[2019-11-30] MEDS: LORazepam 1 MG TAB PO PRN (20:53)
[2019-11-30] MEDS: PRAZOSIN 1 MG CAP PO SCH (20:53)
[2019-12-01 07:11] VITALS: BP 111/57
[2019-12-01] MEDS: CARIPRAZINE 1.5MG CAPSULE (VRAYLAR) PO SCH (08:53)
--- NOTE | 2019-12-01 10:00 | MHIPNPDOC ---
[facility] Progress Note Progress Note DATE OF SERVICE: 12/01/19 Subjective HPI: Yoandy presents today for concerns regarding his psych issues. The patient is met with today where he reports that he feels somewhat better after trying the Vraylar. He reports that he felt extraordinarily angry and anxious and that he even wanted to get into a fight with an individual over the weekend. He reports that he is open to AOT and really wants extra help. He reports that he feels con fused by his current situation. Objective Appearance: Fair hygiene. Appears to be stated age. Affect: Generally euthymic. Cognition: Grossly intact. Alert, Attentive, and Oriented to person, place, time. Thought Form: Linear and goal directed. Generally logical, Pleasent and engaged. Judgement: Fair. Insight: Fair. Assessment F31.60 Bipolar disorder, current episode mixed, unspecified F43.10 Post-traumatic stress disorder, unspecified Plan AOT coordinator referral to be done. AOT coordinator will meet with patient. Will at this time cease trying to get patient [facility] as AOT coordinator could provide outpatient services, that would be more appropriate for the patients needs as well as engage him in getting an AOT. The patient is amenable on a voluntary and could do well quite well with an AOT petition being completed along with TLS and other services much more effectively than if he was an [facility] Vital Signs Vital Signs Date Time Temp Pulse Resp B/P (MAP) Pulse Ox O2 Delivery O2 Flow Rate FiO2 12/01/19 07:11 98.3 62 14 111/57 (75) 96 Room Air Current Medications Current Medications Medications (Trade) Dose Ordered Sig/Dez Route PRN Reason Start Time Stop Time Status Last Admin Dose Admin Acetaminophen (Tylenol Tab) 650 mg Q6HP PRN PO HEADACHE or DISCOMFORT 11/08/19 22:00 11/15/19 18:32 Al Hydrox/Mg Hydrox/Simethicone (Mylanta) 30 ml Q4HP PRN PO HEARTBURN/INDIGESTION 11/08/19 22:00 Cariprazine (Vraylar) 1.5 mg DAILY PO 11/29/19 09:00 12/01/19 08:53 Clonidine HCl (Catapres) 0.1 mg QHS PO 11/11/19 21:00 11/21/19 13:48 DC 11/20/19 20:42 Home Med (Med Rec Complete!) ASDIRECTED XX 11/08/19 22:00 11/08/19 21:59 DC Hydroxyzine HCl (Atarax) 25 mg Q4HP PRN PO ANXIETY/AGITATION 11/10/19 16:00 11/29/19 20:46 Lorazepam (Ativan) 0.5 mg DAILYPRN PRN PO ANXIETY 11/16/19 11:30 11/21/19 13:46 DC 11/21/19 12:25 Lorazepam (Ativan) 1 mg BIDP PRN PO ANXIETY 11/21/19 13:45 11/30/19 20:53 Magnesium Hydroxide (Milk Of Magnesia) 30 ml DAILYPRN PRN PO CONSTIPATION 11/08/19 22:00 Oxcarbazepine (Trileptal) 75 mg BID PO 11/09/19 21:00 11/09/19 11:42 DC Oxcarbazepine (Trileptal) 150 mg QHS PO 11/09/19 21:00 11/11/19 10:16 DC 11/10/19 20:15 Oxcarbazepine (Trileptal) 300 mg BID PO 11/16/19 21:00 11/24/19 10:24 DC 11/24/19 10:09 Oxcarbazepine (Trileptal) 300 mg QHS PO 11/11/19 21:00 11/16/19 11:29 DC 11/15/19 20:37 Oxcarbazepine (Trileptal) 450 mg BID PO 11/24/19 21:00 11/28/19 13:29 DC 11/28/19 09:34 Prazosin HCl (Minipress) 1 mg QHS PO 11/21/19 21:00 11/30/19 20:53 Trazodone HCl (Desyrel) 50 mg QHSP PRN PO INSOMNIA 11/08/19 22:00 11/21/19 13:50 DC 11/20/19 23:30 Trazodone HCl (Desyrel) 100 mg QHSP PRN PO INSOMNIA 11/21/19 14:00 11/27/19 21:57 Venlafaxine HCl (Effexor Xr) 37.5 mg DAILY PO 11/10/19 09:00 11/12/19 11:24 DC 11/12/19 08:16 Allergies Coded Allergies: haloperidol (Verified Adverse Reaction, Intermediate, EPS RXN WITH UNSPECIFIED ANTIPSYCHOTROPICS, 11/08/19) aripiprazole (Verified Adverse Reaction, Mild, 11/08/19) nauseous quetiapine (Verified Adverse Reaction, Mild, 11/08/19) nauseous MARC SKELTON DO Dec 01, 2019 10:00
[2019-12-01 15:42] VITALS: BP 119/74
[2019-12-01] MEDS: LORazepam 1 MG TAB PO PRN (17:36)
[2019-12-01] MEDS: PRAZOSIN 1 MG CAP PO SCH (20:01)
[2019-12-01] MEDS: traZODone 100 MG TAB PO PRN (22:52)
[2019-12-02 06:31] VITALS: BP 110/52
[2019-12-02] MEDS: CARIPRAZINE 1.5MG CAPSULE (VRAYLAR) PO SCH (09:06)
--- NOTE | 2019-12-02 10:28 | MHIPNPDOC ---
[facility] Progress Note Progress Note DATE OF SERVICE: 12/02/19 Subjective HPI: The patient is met with today, he reports that he is had some continued irritability, as he is kept up all night by others screaming, he reports that this made more irritable and can incident where he verbally lashed out at another patient. He reports that he's noticed more irritability, energy and dysphoria. He reports that he still very much interested in the AOT. Objective General: [Well dressed with good hygiene] Speech: [Spontaneous and fluid] Thought processes: [Linear and logical] Thought content: [Future orientated] Abstract reasoning, and computation: [Intact] Description of associations: [Intact] Description of abnormal or psychotic thoughts: reports intermittent suicidal thoughts with no plan Judgment: [fair] Insight: [fair] Orientation: [Alert and orientated 3] Recent and remote memory: [Intact] Attention span and concentration: [Intact] Fund of knowledge: [Adequate] Mood: ["okay"] Affect: dysthymic Assessment Bipolar disorder, current episode, mixed PTSD chronic Plan Plan is to increase Vrylar to 3 mg nightly, to help combat, mixed symptoms, will put on a private room in order to assure better sleep and to reduce agitation Vital Signs Vital Signs Date Time Temp Pulse Resp B/P (MAP) Pulse Ox O2 Delivery O2 Flow Rate FiO2 12/02/19 06:31 97.3 56 12 110/52 (71) Room Air 12/01/19 07:11 96 Current Medications Current Medications Medications (Trade) Dose Ordered Sig/Dez Route PRN Reason Start Time Stop Time Status Last Admin Dose Admin Acetaminophen (Tylenol Tab) 650 mg Q6HP PRN PO HEADACHE or DISCOMFORT 11/08/19 22:00 11/15/19 18:32 Al Hydrox/Mg Hydrox/Simethicone (Mylanta) 30 ml Q4HP PRN PO HEARTBURN/INDIGESTION 11/08/19 22:00 Cariprazine (Vraylar) 1.5 mg DAILY PO 11/29/19 09:00 12/02/19 09:06 Clonidine HCl (Catapres) 0.1 mg QHS PO 11/11/19 21:00 11/21/19 13:48 DC 11/20/19 20:42 Home Med (Med Rec Complete!) ASDIRECTED XX 11/08/19 22:00 11/08/19 21:59 DC Hydroxyzine HCl (Atarax) 25 mg Q4HP PRN PO ANXIETY/AGITATION 11/10/19 16:00 11/29/19 20:46 Lorazepam (Ativan) 0.5 mg DAILYPRN PRN PO ANXIETY 11/16/19 11:30 11/21/19 13:46 DC 11/21/19 12:25 Lorazepam (Ativan) 1 mg BIDP PRN PO ANXIETY 11/21/19 13:45 12/01/19 17:36 Magnesium Hydroxide (Milk Of Magnesia) 30 ml DAILYPRN PRN PO CONSTIPATION 11/08/19 22:00 Oxcarbazepine (Trileptal) 75 mg BID PO 11/09/19 21:00 11/09/19 11:42 DC Oxcarbazepine (Trileptal) 150 mg QHS PO 11/09/19 21:00 11/11/19 10:16 DC 11/10/19 20:15 Oxcarbazepine (Trileptal) 300 mg BID PO 11/16/19 21:00 11/24/19 10:24 DC 11/24/19 10:09 Oxcarbazepine (Trileptal) 300 mg QHS PO 11/11/19 21:00 11/16/19 11:29 DC 11/15/19 20:37 Oxcarbazepine (Trileptal) 450 mg BID PO 11/24/19 21:00 11/28/19 13:29 DC 11/28/19 09:34 Prazosin HCl (Minipress) 1 mg QHS PO 11/21/19 21:00 12/01/19 20:01 Trazodone HCl (Desyrel) 50 mg QHSP PRN PO INSOMNIA 11/08/19 22:00 11/21/19 13:50 DC 11/20/19 23:30 Trazodone HCl (Desyrel) 100 mg QHSP PRN PO INSOMNIA 11/21/19 14:00 12/01/19 22:52 Venlafaxine HCl (Effexor Xr) 37.5 mg DAILY PO 11/10/19 09:00 11/12/19 11:24 DC 11/12/19 08:16 Allergies Coded Allergies: haloperidol (Verified Adverse Reaction, Intermediate, EPS RXN WITH UNSPECIFIED ANTIPSYCHOTROPICS, 11/08/19) aripiprazole (Verified Adverse Reaction, Mild, 11/08/19) nauseous quetiapine (Verified Adverse Reaction, Mild, 11/08/19) nauseous MARC SKELTON DO Dec 02, 2019 10:28
[2019-12-02 18:20] VITALS: BP 139/58
[2019-12-02] MEDS: traZODone 100 MG TAB PO PRN (22:38)
[2019-12-02] MEDS: PRAZOSIN 1 MG CAP PO SCH (22:38)
[2019-12-03 06:30] VITALS: BP 106/52
[2019-12-03] MEDS: CARIPRAZINE 3MG CAPSULE (VRAYLAR) PO SCH (08:53)
--- NOTE | 2019-12-03 10:18 | MHIPNPDOC ---
[facility] Progress Note Progress Note DATE OF SERVICE: 12/03/19 Subjective HPI: The patient is met with today, he reports that the higher dose of his antipsychotic is helping his anger and irritability, as well as being put in a private room where he is less disruptions at night and notices that his sleep is greatly improved. He reports he is making progress. He met with the AOT coordinator and reported that he felt that it was a good meeting, he reports he is concerned about his legs and ankles and wonders if he needs to be in the cast. Further, staff report he is doing better today. Objective General: [Well dressed with good hygiene] Speech: [Spontaneous and fluid] Thought processes: [Linear and logical] Thought content: [Future orientated] Abstract reasoning, and computation: [Intact] Description of associations: [Intact] Description of abnormal or psychotic thoughts:[Denies any suicidal or homicidal ideation. Denies any auditory or visual hallucinations. Does not appear to be responding to internal stimuli. Does not appear to be endorsing any bizarre or paranoid ideation.] Judgment: [fair] Insight: [fair] Orientation: [Alert and orientated 3] Recent and remote memory: [Intact] Attention span and concentration: [Intact] Fund of knowledge: [Adequate] Mood: ["okay"] Affect: dysthymic with a constricted range Assessment bipolar disorder, current episode, mixed PTSD, chronic Plan Continue Vrylar 3 mg daily, making progress AOT to be undertaken while on this unit will meet with AOT coordinator for further information Vital Signs Vital Signs Date Time Temp Pulse Resp B/P (MAP) Pulse Ox O2 Delivery O2 Flow Rate FiO2 12/03/19 06:30 98.5 51 12 106/52 (70) Room Air 12/01/19 07:11 96 Current Medications Current Medications Medications (Trade) Dose Ordered Sig/Dez Route PRN Reason Start Time Stop Time Status Last Admin Dose Admin Acetaminophen (Tylenol Tab) 650 mg Q6HP PRN PO HEADACHE or DISCOMFORT 11/08/19 22:00 11/15/19 18:32 Al Hydrox/Mg Hydrox/Simethicone (Mylanta) 30 ml Q4HP PRN PO HEARTBURN/INDIGESTION 11/08/19 22:00 Cariprazine (Vraylar) 1.5 mg DAILY PO 11/29/19 09:00 12/02/19 11:51 DC 12/02/19 09:06 Cariprazine (Vraylar) 3 mg DAILY PO 12/03/19 09:00 12/03/19 08:53 Clonidine HCl (Catapres) 0.1 mg QHS PO 11/11/19 21:00 11/21/19 13:48 DC 11/20/19 20:42 Home Med (Med Rec Complete!) ASDIRECTED XX 11/08/19 22:00 11/08/19 21:59 DC Hydroxyzine HCl (Atarax) 25 mg Q4HP PRN PO ANXIETY/AGITATION 11/10/19 16:00 11/29/19 20:46 Lorazepam (Ativan) 0.5 mg DAILYPRN PRN PO ANXIETY 11/16/19 11:30 11/21/19 13:46 DC 11/21/19 12:25 Lorazepam (Ativan) 1 mg BIDP PRN PO ANXIETY 11/21/19 13:45 12/01/19 17:36 Magnesium Hydroxide (Milk Of Magnesia) 30 ml DAILYPRN PRN PO CONSTIPATION 11/08/19 22:00 Oxcarbazepine (Trileptal) 75 mg BID PO 11/09/19 21:00 11/09/19 11:42 DC Oxcarbazepine (Trileptal) 150 mg QHS PO 11/09/19 21:00 11/11/19 10:16 DC 11/10/19 20:15 Oxcarbazepine (Trileptal) 300 mg BID PO 11/16/19 21:00 11/24/19 10:24 DC 11/24/19 10:09 Oxcarbazepine (Trileptal) 300 mg QHS PO 11/11/19 21:00 11/16/19 11:29 DC 11/15/19 20:37 Oxcarbazepine (Trileptal) 450 mg BID PO 11/24/19 21:00 11/28/19 13:29 DC 11/28/19 09:34 Prazosin HCl (Minipress) 1 mg QHS PO 11/21/19 21:00 12/02/19 22:38 Trazodone HCl (Desyrel) 50 mg QHSP PRN PO INSOMNIA 11/08/19 22:00 11/21/19 13:50 DC 11/20/19 23:30 Trazodone HCl (Desyrel) 100 mg QHSP PRN PO INSOMNIA 11/21/19 14:00 12/02/19 22:38 Venlafaxine HCl (Effexor Xr) 37.5 mg DAILY PO 11/10/19 09:00 11/12/19 11:24 DC 11/12/19 08:16 Allergies Coded Allergies: haloperidol (Verified Adverse Reaction, Intermediate, EPS RXN WITH UNSPECIFIED ANTIPSYCHOTROPICS, 11/08/19) aripiprazole (Verified Adverse Reaction, Mild, 11/08/19) nauseous quetiapine (Verified Adverse Reaction, Mild, 11/08/19) nauseous MARC SKELTON DO Dec 03, 2019 10:18
[2019-12-03] MEDS: LORazepam 1 MG TAB PO PRN ×2 (11:33→22:17)
[2019-12-03 18:29] VITALS: BP 124/60
[2019-12-03] MEDS: PRAZOSIN 1 MG CAP PO SCH (20:25)
[2019-12-03] MEDS: traZODone 100 MG TAB PO PRN (22:17)
[2019-12-03] MEDS: hydrOXYzine 25 MG TAB PO PRN (23:41)
[2019-12-04 06:24] VITALS: BP 100/50
[2019-12-04] MEDS: CARIPRAZINE 3MG CAPSULE (VRAYLAR) PO SCH (09:17)
[2019-12-04 18:00] VITALS: BP 128/62
[2019-12-04] MEDS: PRAZOSIN 1 MG CAP PO SCH (21:25)
[2019-12-05 06:45] VITALS: BP 121/70
[2019-12-05] MEDS: CARIPRAZINE 3MG CAPSULE (VRAYLAR) PO SCH (09:11)
[2019-12-05 17:43] VITALS: BP 120/56
[2019-12-05] MEDS: PRAZOSIN 1 MG CAP PO SCH (20:32)
[2019-12-05] MEDS: traZODone 100 MG TAB PO PRN (20:32)
[2019-12-06 06:31] VITALS: BP 110/51
[2019-12-06] MEDS: CARIPRAZINE 3MG CAPSULE (VRAYLAR) PO SCH (08:21)
--- NOTE | 2019-12-06 09:50 | MHIPNPDOC ---
[facility] Progress Note Progress Note DATE OF SERVICE: 12/06/19 Subjective HPI: Yoandy presents today for a follow up. He claims to be having good days and decent amount of sleep, but has been feeling weird lately. He reports to not feel manic, depressed, and have controlled his PTSD episodes. He notes to be feeling much better by using his coping skills. Objective Appearance: Appears to be stated age. Well nourished. Well groomed. Affect: Mildly dysthymic and constricted. Speech: Normal volume. Normal rate. Spontaneous and Fluid. Thought Form: Linear and goal directed. Thought Content: No thoughts of self harm. No evidence of delusions. Denies overt suicidality, but reports intermittent ideation over the night. No evidence of aggressive or homicidal ideation. Judgement: Intact as evidenced by decision making in the recent past. Insight: Good insight into symptoms and treatment options. Assessment F31.60 Bipolar disorder, current episode mixed, unspecified F43.10 Post-traumatic stress disorder, unspecified Plan Continue Vraylar 3 mg. Patient is quite amenable to continue the medications, but wants to find a balance. Currently, pursuing AOT for the patient at this time. The patient is amenable and on a voluntary, however it appears that [facility] will not take him on this status. It appears after discussion with the patient that hed be more apt to AOT as this will provide him needed services prior to him leaving. Patient otherwise has done well with some intermittent difficulties, especially when sleep is interrupted. He makes good progress and is linear during the discussion but reports that he feels focused and re-engaged to discuss further issues and problems in his life. Will attempt to consult with ortho to determine if boot is need to be kept as the patient reports that it is uncomfortable. Called Orthopedics and left a message with on-call provider. Repeated x-rays have been completed in order to give better insight into whether he needs to further continue the use of his prosthetic boot. Vital Signs Vital Signs Date Time Temp Pulse Resp B/P (MAP) Pulse Ox O2 Delivery O2 Flow Rate FiO2 12/06/19 06:31 98.0 64 14 110/51 (70) 97 Room Air Current Medications Current Medications Medications (Trade) Dose Ordered Sig/Dez Route PRN Reason Start Time Stop Time Status Last Admin Dose Admin Acetaminophen (Tylenol Tab) 650 mg Q6HP PRN PO HEADACHE or DISCOMFORT 11/08/19 22:00 11/15/19 18:32 Al Hydrox/Mg Hydrox/Simethicone (Mylanta) 30 ml Q4HP PRN PO HEARTBURN/INDIGESTION 11/08/19 22:00 Cariprazine (Vraylar) 1.5 mg DAILY PO 11/29/19 09:00 12/02/19 11:51 DC 12/02/19 09:06 Cariprazine (Vraylar) 3 mg DAILY PO 12/03/19 09:00 12/06/19 08:21 Clonidine HCl (Catapres) 0.1 mg QHS PO 11/11/19 21:00 11/21/19 13:48 DC 11/20/19 20:42 Home Med (Med Rec Complete!) ASDIRECTED XX 11/08/19 22:00 11/08/19 21:59 DC Hydroxyzine HCl (Atarax) 25 mg Q4HP PRN PO ANXIETY/AGITATION 11/10/19 16:00 12/03/19 23:41 Lorazepam (Ativan) 0.5 mg DAILYPRN PRN PO ANXIETY 11/16/19 11:30 11/21/19 13:46 DC 11/21/19 12:25 Lorazepam (Ativan) 1 mg BIDP PRN PO ANXIETY 11/21/19 13:45 12/03/19 22:17 Magnesium Hydroxide (Milk Of Magnesia) 30 ml DAILYPRN PRN PO CONSTIPATION 11/08/19 22:00 Miscellaneous (Unresolved Clarification Entry) SEE LABEL COMMENTS DAILY XX 12/05/19 09:00 12/05/19 13:05 DC Oxcarbazepine (Trileptal) 75 mg BID PO 11/09/19 21:00 11/09/19 11:42 DC Oxcarbazepine (Trileptal) 150 mg QHS PO 11/09/19 21:00 11/11/19 10:16 DC 11/10/19 20:15 Oxcarbazepine (Trileptal) 300 mg BID PO 11/16/19 21:00 11/24/19 10:24 DC 11/24/19 10:09 Oxcarbazepine (Trileptal) 300 mg QHS PO 11/11/19 21:00 11/16/19 11:29 DC 11/15/19 20:37 Oxcarbazepine (Trileptal) 450 mg BID PO 11/24/19 21:00 11/28/19 13:29 DC 11/28/19 09:34 Prazosin HCl (Minipress) 1 mg QHS PO 11/21/19 21:00 12/05/19 20:32 Trazodone HCl (Desyrel) 50 mg QHSP PRN PO INSOMNIA 11/08/19 22:00 11/21/19 13:50 DC 11/20/19 23:30 Trazodone HCl (Desyrel) 100 mg QHSP PRN PO INSOMNIA 11/21/19 14:00 12/05/19 20:32 Venlafaxine HCl (Effexor Xr) 37.5 mg DAILY PO 11/10/19 09:00 11/12/19 11:24 DC 11/12/19 08:16 Allergies Coded Allergies: haloperidol (Verified Adverse Reaction, Intermediate, EPS RXN WITH UNSPECIFIED ANTIPSYCHOTROPICS, 11/08/19) aripiprazole (Verified Adverse Reaction, Mild, 11/08/19) nauseous quetiapine (Verified Adverse Reaction, Mild, 11/08/19) nauseous MARC SKELTON DO Dec 06, 2019 09:50
[2019-12-06 16:02] VITALS: BP 124/60
[2019-12-06] MEDS: traZODone 100 MG TAB PO PRN (21:41)
[2019-12-06] MEDS: PRAZOSIN 1 MG CAP PO SCH (21:41)
[2019-12-07 06:32] VITALS: BP 120/69
[2019-12-07] MEDS: CARIPRAZINE 3MG CAPSULE (VRAYLAR) PO SCH (08:43)
--- NOTE | 2019-12-07 10:18 | MHIPNPDOC ---
[facility] Progress Note Progress Note DATE OF SERVICE: 12/07/19 Subjective HPI: Yoandy presents today for a follow-up on his legs. His left foot is healing well and can be taken out of the boot. His right foot is not healing as well. The boot can be exchanged into an ankle brace if uncomfortable. He still has suicidal thoughts here and there. Objective Appearance: Fair. Affect: Dysthymic. constricted. Speech: Spontaneous and Fluid. Cognition: Grossly intact. Thought Form: Linear. logical. Thought Content: Reports fleeting SI at times. Denies homicidal thoughts. Judgement: Fair. Insight: Fair. Assessment F31.60 Bipolar disorder, current episode mixed, unspecified F43.12 Post-traumatic stress disorder, chronic Plan Refer PT eval and treat as well as see about obtaining an ankle brace for the patient Continue Caprizone 3 mg daily Will continue to focus on how to get AOT coordination done, so that we may create a safe discharge plan as he reports that primarily his situation would likely remain unstable. Vital Signs Vital Signs Date Time Temp Pulse Resp B/P (MAP) Pulse Ox O2 Delivery O2 Flow Rate FiO2 12/07/19 06:32 97.0 56 18 120/69 (86) Room Air 12/06/19 06:31 97 Current Medications Current Medications Medications (Trade) Dose Ordered Sig/Dez Route PRN Reason Start Time Stop Time Status Last Admin Dose Admin Acetaminophen (Tylenol Tab) 650 mg Q6HP PRN PO HEADACHE or DISCOMFORT 11/08/19 22:00 11/15/19 18:32 Al Hydrox/Mg Hydrox/Simethicone (Mylanta) 30 ml Q4HP PRN PO HEARTBURN/INDIGESTION 11/08/19 22:00 Cariprazine (Vraylar) 1.5 mg DAILY PO 11/29/19 09:00 12/02/19 11:51 DC 12/02/19 09:06 Cariprazine (Vraylar) 3 mg DAILY PO 12/03/19 09:00 12/07/19 08:43 Clonidine HCl (Catapres) 0.1 mg QHS PO 11/11/19 21:00 11/21/19 13:48 DC 11/20/19 20:42 Home Med (Med Rec Complete!) ASDIRECTED XX 11/08/19 22:00 11/08/19 21:59 DC Hydroxyzine HCl (Atarax) 25 mg Q4HP PRN PO ANXIETY/AGITATION 11/10/19 16:00 12/03/19 23:41 Lorazepam (Ativan) 0.5 mg DAILYPRN PRN PO ANXIETY 11/16/19 11:30 11/21/19 13:46 DC 11/21/19 12:25 Lorazepam (Ativan) 1 mg BIDP PRN PO ANXIETY 11/21/19 13:45 12/03/19 22:17 Magnesium Hydroxide (Milk Of Magnesia) 30 ml DAILYPRN PRN PO CONSTIPATION 11/08/19 22:00 Miscellaneous (Unresolved Clarification Entry) SEE LABEL COMMENTS DAILY XX 12/05/19 09:00 12/05/19 13:05 DC Oxcarbazepine (Trileptal) 75 mg BID PO 11/09/19 21:00 11/09/19 11:42 DC Oxcarbazepine (Trileptal) 150 mg QHS PO 11/09/19 21:00 11/11/19 10:16 DC 11/10/19 20:15 Oxcarbazepine (Trileptal) 300 mg BID PO 11/16/19 21:00 11/24/19 10:24 DC 11/24/19 10:09 Oxcarbazepine (Trileptal) 300 mg QHS PO 11/11/19 21:00 11/16/19 11:29 DC 11/15/19 20:37 Oxcarbazepine (Trileptal) 450 mg BID PO 11/24/19 21:00 11/28/19 13:29 DC 11/28/19 09:34 Prazosin HCl (Minipress) 1 mg QHS PO 11/21/19 21:00 12/06/19 21:41 Trazodone HCl (Desyrel) 50 mg QHSP PRN PO INSOMNIA 11/08/19 22:00 11/21/19 13:50 DC 11/20/19 23:30 Trazodone HCl (Desyrel) 100 mg QHSP PRN PO INSOMNIA 11/21/19 14:00 12/06/19 21:41 Venlafaxine HCl (Effexor Xr) 37.5 mg DAILY PO 11/10/19 09:00 11/12/19 11:24 DC 11/12/19 08:16 Allergies Coded Allergies: haloperidol (Verified Adverse Reaction, Intermediate, EPS RXN WITH UNSPECIFIED ANTIPSYCHOTROPICS, 11/08/19) aripiprazole (Verified Adverse Reaction, Mild, 11/08/19) nauseous quetiapine (Verified Adverse Reaction, Mild, 11/08/19) nauseous MARC SKELTON DO Dec 07, 2019 10:18
[2019-12-07 16:07] VITALS: BP 112/68
[2019-12-07] MEDS: traZODone 100 MG TAB PO PRN (20:03)
[2019-12-07] MEDS: PRAZOSIN 1 MG CAP PO SCH (20:03)
[2019-12-08 06:29] VITALS: BP 142/78
--- NOTE | 2019-12-08 07:49 | REP ---
BILATERAL ANKLE SERIES: 8-VIEWS HISTORY: Healing fracture. COMPARISON: Radiographs from 10/24/2019. FINDINGS: Four views of each ankle are presented. Ankle mortise is intact bilaterally. There is a healing fracture of each calcaneus posteriorly. Position is unchanged from the comparison CT study 10/17/2019. No ankle fracture is appreciated. IMPRESSION: Healing minimally displaced fractures of the posterior aspect of each calcaneus. No other fracture seen. MTDD
--- NOTE | 2019-12-08 07:50 | REP ---
BILATERAL FOOT RADIOGRAPHS: 8-VIEWS HISTORY: Healing fracture in boot. COMPARISON: 10/24/2019. FINDINGS: Four views of the left foot and four views of the right foot demonstrate healing minimally displaced fractures of the posterior calcaneus on both sides. These are unchanged in position. No new fracture is seen. MTDD
[2019-12-08] MEDS: CARIPRAZINE 3MG CAPSULE (VRAYLAR) PO SCH (08:41)
--- NOTE | 2019-12-08 09:07 | MHIPNPDOC ---
[facility] Progress Note Progress Note DATE OF SERVICE: 12/08/19 Subjective HPI: The patient was met with briefly. He reported that he was quite tired today and reported that he had not been wearing his Boot. He felt it was uncomfortable. Ortho has been attempting to figure out an alternative for him at this time. He reports his mood still varies, and he still gets suicidal and homicidal ideation alternating throughout the day feeling still somewhat distorted. He reports he's generally doing well and making progress. MEDICATIONS: He reports that the inaudible he has been helpful, but it's anxious about sudden changes as he reports that he doesn't want to feel over medicated. Objective Appearance: Fair. Behavior: Laying in bed. Mood: Dysthymic. Constricted. Cognition: grossly intact. Thought Content: Intermittent sucidal thoughts. Denies homicidal thoughts. Perception: Not responding to internal stimuli. Judgement: Fair. Insight: Fair. Assessment F31.60 Bipolar disorder, current episode mixed, unspecified F43.12 Post-traumatic stress disorder, chronic F60.3 Borderline personality disorder Plan Continue inaudible 3 milligrams daily. Will continue to try to coordinate for AOT and hopefully for TLS, as this would be most helpful at this time. TLS reports that they are ambivalent about taking him due to his charges for arson. We will need to obtain either AOT or attempt to negotiate in order to have. Vital Signs Vital Signs Date Time Temp Pulse Resp B/P (MAP) Pulse Ox O2 Delivery O2 Flow Rate FiO2 12/08/19 08:07 Room Air 12/08/19 06:29 97.6 69 18 142/78 (99) 12/06/19 06:31 97 Current Medications Current Medications Medications (Trade) Dose Ordered Sig/Dez Route PRN Reason Start Time Stop Time Status Last Admin Dose Admin Acetaminophen (Tylenol Tab) 650 mg Q6HP PRN PO HEADACHE or DISCOMFORT 11/08/19 22:00 11/15/19 18:32 Al Hydrox/Mg Hydrox/Simethicone (Mylanta) 30 ml Q4HP PRN PO HEARTBURN/INDIGESTION 11/08/19 22:00 Cariprazine (Vraylar) 1.5 mg DAILY PO 11/29/19 09:00 12/02/19 11:51 DC 12/02/19 09:06 Cariprazine (Vraylar) 3 mg DAILY PO 12/03/19 09:00 12/08/19 08:41 Clonidine HCl (Catapres) 0.1 mg QHS PO 11/11/19 21:00 11/21/19 13:48 DC 11/20/19 20:42 Home Med (Med Rec Complete!) ASDIRECTED XX 11/08/19 22:00 11/08/19 21:59 DC Hydroxyzine HCl (Atarax) 25 mg Q4HP PRN PO ANXIETY/AGITATION 11/10/19 16:00 12/03/19 23:41 Lorazepam (Ativan) 0.5 mg DAILYPRN PRN PO ANXIETY 11/16/19 11:30 11/21/19 13:46 DC 11/21/19 12:25 Lorazepam (Ativan) 1 mg BIDP PRN PO ANXIETY 11/21/19 13:45 12/03/19 22:17 Magnesium Hydroxide (Milk Of Magnesia) 30 ml DAILYPRN PRN PO CONSTIPATION 11/08/19 22:00 Miscellaneous (Unresolved Clarification Entry) SEE LABEL COMMENTS DAILY XX 12/05/19 09:00 12/05/19 13:05 DC Oxcarbazepine (Trileptal) 75 mg BID PO 11/09/19 21:00 11/09/19 11:42 DC Oxcarbazepine (Trileptal) 150 mg QHS PO 11/09/19 21:00 11/11/19 10:16 DC 11/10/19 20:15 Oxcarbazepine (Trileptal) 300 mg BID PO 11/16/19 21:00 11/24/19 10:24 DC 11/24/19 10:09 Oxcarbazepine (Trileptal) 300 mg QHS PO 11/11/19 21:00 11/16/19 11:29 DC 11/15/19 20:37 Oxcarbazepine (Trileptal) 450 mg BID PO 11/24/19 21:00 11/28/19 13:29 DC 11/28/19 09:34 Prazosin HCl (Minipress) 1 mg QHS PO 11/21/19 21:00 12/07/19 20:03 Trazodone HCl (Desyrel) 50 mg QHSP PRN PO INSOMNIA 11/08/19 22:00 11/21/19 13:50 DC 11/20/19 23:30 Trazodone HCl (Desyrel) 100 mg QHSP PRN PO INSOMNIA 11/21/19 14:00 12/07/19 20:03 Venlafaxine HCl (Effexor Xr) 37.5 mg DAILY PO 11/10/19 09:00 11/12/19 11:24 DC 11/12/19 08:16 Allergies Coded Allergies: haloperidol (Verified Adverse Reaction, Intermediate, EPS RXN WITH UNSPECIFIED ANTIPSYCHOTROPICS, 11/08/19) aripiprazole (Verified Adverse Reaction, Mild, 11/08/19) nauseous quetiapine (Verified Adverse Reaction, Mild, 11/08/19) nauseous MARC SKELTON DO Dec 08, 2019 09:07
[2019-12-08 16:02] VITALS: BP 106/57
[2019-12-08] MEDS: traZODone 100 MG TAB PO PRN (21:08)
[2019-12-08] MEDS: PRAZOSIN 1 MG CAP PO SCH (21:09)
[2019-12-09 06:22] VITALS: BP 106/55
[2019-12-09] MEDS: CARIPRAZINE 3MG CAPSULE (VRAYLAR) PO SCH (08:39)
--- NOTE | 2019-12-09 10:43 | MHIPNPDOC ---
[facility] Progress Note Progress Note DATE OF SERVICE: 12/09/19 Subjective HPI: Dewey presents today for concerns regarding his nuria. The suicidal thoughts are not as prevalent as before but still exist occasionally. He reports to have a lost sense of feeling with his depression. Patient notes that he is sleeping more but feels that it is just to pass time due to boredom. His self-esteem is low and feels that he is self-conscious about his weight. Patient has an issue in his right foot that is handled by orthotics. MEDICATIONS: His current medications have been helping to stabilize his nuria. Objective Behavior: Cooperative with good eye contact. Pleasant. Engaged. Affect: Full range. Appropriate to context. Cognition: Alert, Attentive, and Oriented to person, place, time. Thought Content: No evidence of suicidal ideation. No evidence of aggressive or homicidal ideation. No thoughts of self harm. No evidence of delusions. Judgement: Intact as evidenced by decision making in the recent past. Insight: Good insight into symptoms and treatment options. Assessment F31.2 Bipolar disorder, current episode manic severe with psychotic features F43.12 Post-traumatic stress disorder, chronic Plan Continue Cariprazine 3 mg Will attempt to contact aot coordinator to see if earlier services can be arranged before aot needs to be initiated. Vital Signs Vital Signs Date Time Temp Pulse Resp B/P (MAP) Pulse Ox O2 Delivery O2 Flow Rate FiO2 12/09/19 06:22 96.7 82 16 106/55 (72) 12/08/19 08:07 Room Air 12/06/19 06:31 97 Current Medications Current Medications Medications (Trade) Dose Ordered Sig/Dez Route PRN Reason Start Time Stop Time Status Last Admin Dose Admin Acetaminophen (Tylenol Tab) 650 mg Q6HP PRN PO HEADACHE or DISCOMFORT 11/08/19 22:00 11/15/19 18:32 Al Hydrox/Mg Hydrox/Simethicone (Mylanta) 30 ml Q4HP PRN PO HEARTBURN/INDIGESTION 11/08/19 22:00 Cariprazine (Vraylar) 1.5 mg DAILY PO 11/29/19 09:00 12/02/19 11:51 DC 12/02/19 09:06 Cariprazine (Vraylar) 3 mg DAILY PO 12/03/19 09:00 12/09/19 08:39 Clonidine HCl (Catapres) 0.1 mg QHS PO 11/11/19 21:00 11/21/19 13:48 DC 11/20/19 20:42 Home Med (Med Rec Complete!) ASDIRECTED XX 11/08/19 22:00 11/08/19 21:59 DC Hydroxyzine HCl (Atarax) 25 mg Q4HP PRN PO ANXIETY/AGITATION 11/10/19 16:00 12/03/19 23:41 Lorazepam (Ativan) 0.5 mg DAILYPRN PRN PO ANXIETY 11/16/19 11:30 11/21/19 13:46 DC 11/21/19 12:25 Lorazepam (Ativan) 1 mg BIDP PRN PO ANXIETY 11/21/19 13:45 12/03/19 22:17 Magnesium Hydroxide (Milk Of Magnesia) 30 ml DAILYPRN PRN PO CONSTIPATION 11/08/19 22:00 Miscellaneous (Unresolved Clarification Entry) SEE LABEL COMMENTS DAILY XX 12/05/19 09:00 12/05/19 13:05 DC Oxcarbazepine (Trileptal) 75 mg BID PO 11/09/19 21:00 11/09/19 11:42 DC Oxcarbazepine (Trileptal) 150 mg QHS PO 11/09/19 21:00 11/11/19 10:16 DC 11/10/19 20:15 Oxcarbazepine (Trileptal) 300 mg BID PO 11/16/19 21:00 11/24/19 10:24 DC 11/24/19 10:09 Oxcarbazepine (Trileptal) 300 mg QHS PO 11/11/19 21:00 11/16/19 11:29 DC 11/15/19 20:37 Oxcarbazepine (Trileptal) 450 mg BID PO 11/24/19 21:00 11/28/19 13:29 DC 11/28/19 09:34 Prazosin HCl (Minipress) 1 mg QHS PO 11/21/19 21:00 12/08/19 21:09 Trazodone HCl (Desyrel) 50 mg QHSP PRN PO INSOMNIA 11/08/19 22:00 11/21/19 13:50 DC 11/20/19 23:30 Trazodone HCl (Desyrel) 100 mg QHSP PRN PO INSOMNIA 11/21/19 14:00 12/08/19 21:08 Venlafaxine HCl (Effexor Xr) 37.5 mg DAILY PO 11/10/19 09:00 11/12/19 11:24 DC 11/12/19 08:16 Allergies Coded Allergies: haloperidol (Verified Adverse Reaction, Intermediate, EPS RXN WITH UNSPECIFIED ANTIPSYCHOTROPICS, 11/08/19) aripiprazole (Verified Adverse Reaction, Mild, 11/08/19) nauseous quetiapine (Verified Adverse Reaction, Mild, 11/08/19) nauseous MARC SKELTON DO Dec 09, 2019 10:43
[2019-12-09 18:45] VITALS: BP 139/81
[2019-12-09] MEDS: PRAZOSIN 1 MG CAP PO SCH (20:53)
[2019-12-09] MEDS: traZODone 100 MG TAB PO PRN (22:05)
[2019-12-09] MEDS: LORazepam 1 MG TAB PO PRN (22:54)
[2019-12-10 06:53] VITALS: BP 108/56
[2019-12-10] MEDS: CARIPRAZINE 3MG CAPSULE (VRAYLAR) PO SCH (08:20)
--- NOTE | 2019-12-10 10:54 | MHIPNPDOC ---
[facility] Progress Note Progress Note DATE OF SERVICE: 12/10/19 Subjective HPI: Dewey presents today for a check in before his group session. Patient is currently taking Cariprazine. He reports to have suicidal thoughts that come and go. His sleep has increased due to his downward feeling. Objective Appearance: Fair. Affect: Dysthymic. constricted. Speech: Spontaneous and Fluid. Cognition: Grossly intact. Thought Form: Linear. logical. Thought Content: Reports fleeting SI at times. Denies homicidal thoughts. Judgement: Fair. Insight: Fair. Assessment F20.9 Schizophrenia, unspecified Plan Continue patient on Cariprazine Vital Signs Vital Signs Date Time Temp Pulse Resp B/P (MAP) Pulse Ox O2 Delivery O2 Flow Rate FiO2 12/10/19 06:53 97.2 62 16 108/56 (73) 98 Room Air Current Medications Current Medications Medications (Trade) Dose Ordered Sig/Dez Route PRN Reason Start Time Stop Time Status Last Admin Dose Admin Acetaminophen (Tylenol Tab) 650 mg Q6HP PRN PO HEADACHE or DISCOMFORT 11/08/19 22:00 11/15/19 18:32 Al Hydrox/Mg Hydrox/Simethicone (Mylanta) 30 ml Q4HP PRN PO HEARTBURN/INDIGESTION 11/08/19 22:00 Cariprazine (Vraylar) 1.5 mg DAILY PO 11/29/19 09:00 12/02/19 11:51 DC 12/02/19 09:06 Cariprazine (Vraylar) 3 mg DAILY PO 12/03/19 09:00 12/10/19 08:20 Clonidine HCl (Catapres) 0.1 mg QHS PO 11/11/19 21:00 11/21/19 13:48 DC 11/20/19 20:42 Home Med (Med Rec Complete!) ASDIRECTED XX 11/08/19 22:00 11/08/19 21:59 DC Hydroxyzine HCl (Atarax) 25 mg Q4HP PRN PO ANXIETY/AGITATION 11/10/19 16:00 12/03/19 23:41 Lorazepam (Ativan) 0.5 mg DAILYPRN PRN PO ANXIETY 11/16/19 11:30 11/21/19 13:46 DC 11/21/19 12:25 Lorazepam (Ativan) 1 mg BIDP PRN PO ANXIETY 11/21/19 13:45 12/09/19 22:54 Magnesium Hydroxide (Milk Of Magnesia) 30 ml DAILYPRN PRN PO CONSTIPATION 11/08/19 22:00 Miscellaneous (Unresolved Clarification Entry) SEE LABEL COMMENTS DAILY XX 12/05/19 09:00 12/05/19 13:05 DC Miscellaneous (Unresolved Clarification Entry) SEE LABEL COMMENTS DAILY XX 12/09/19 09:00 Oxcarbazepine (Trileptal) 75 mg BID PO 11/09/19 21:00 11/09/19 11:42 DC Oxcarbazepine (Trileptal) 150 mg QHS PO 11/09/19 21:00 11/11/19 10:16 DC 11/10/19 20:15 Oxcarbazepine (Trileptal) 300 mg BID PO 11/16/19 21:00 11/24/19 10:24 DC 11/24/19 10:09 Oxcarbazepine (Trileptal) 300 mg QHS PO 11/11/19 21:00 11/16/19 11:29 DC 11/15/19 20:37 Oxcarbazepine (Trileptal) 450 mg BID PO 11/24/19 21:00 11/28/19 13:29 DC 11/28/19 09:34 Prazosin HCl (Minipress) 1 mg QHS PO 11/21/19 21:00 12/09/19 20:53 Trazodone HCl (Desyrel) 50 mg QHSP PRN PO INSOMNIA 11/08/19 22:00 11/21/19 13:50 DC 11/20/19 23:30 Trazodone HCl (Desyrel) 100 mg QHSP PRN PO INSOMNIA 11/21/19 14:00 12/09/19 22:05 Venlafaxine HCl (Effexor Xr) 37.5 mg DAILY PO 11/10/19 09:00 11/12/19 11:24 DC 11/12/19 08:16 Allergies Coded Allergies: haloperidol (Verified Adverse Reaction, Intermediate, EPS RXN WITH UNSPECIFIED ANTIPSYCHOTROPICS, 11/08/19) aripiprazole (Verified Adverse Reaction, Mild, 11/08/19) nauseous quetiapine (Verified Adverse Reaction, Mild, 11/08/19) nauseous LULEJIAN,MARC DO Dec 10, 2019 10:54
[2019-12-10 16:08] VITALS: BP 121/58
[2019-12-10] MEDS: hydrOXYzine 25 MG TAB PO PRN (20:43)
[2019-12-10] MEDS: traZODone 100 MG TAB PO PRN (20:43)
[2019-12-10] MEDS: PRAZOSIN 1 MG CAP PO SCH (20:43)
[2019-12-11 06:15] VITALS: BP 122/60
[2019-12-11] MEDS: CARIPRAZINE 3MG CAPSULE (VRAYLAR) PO SCH (08:42)
[2019-12-11 16:11] VITALS: BP 140/66
[2019-12-11] MEDS: PRAZOSIN 1 MG CAP PO SCH (22:13)
[2019-12-12 06:19] VITALS: BP 102/53
[2019-12-12] MEDS: CARIPRAZINE 3MG CAPSULE (VRAYLAR) PO SCH (08:20)
[2019-12-12 16:11] VITALS: BP 111/60
[2019-12-12] MEDS: traZODone 100 MG TAB PO PRN (21:06)
[2019-12-12] MEDS: hydrOXYzine 25 MG TAB PO PRN (21:06)
[2019-12-12] MEDS: PRAZOSIN 1 MG CAP PO SCH (21:07)
[2019-12-13 06:23] VITALS: BP 103/51
[2019-12-13] MEDS: CARIPRAZINE 3MG CAPSULE (VRAYLAR) PO SCH (09:21)
--- NOTE | 2019-12-13 11:16 | MHIPNPDOC ---
[facility] Progress Note Progress Note DATE OF SERVICE: 12/13/19 Subjective HPI: Dewey presents today for a follow up. He notes that he has been sleeping a lot since there is nothing to do at the institution, and it passes time. He states that he is doing well on suicidal thoughts. He is not having as many, and he notes that they come in and out sometimes. He reports significant boredom that almost caused him to become angry. He states that he will be alright, and he will be patient. Objective Appearance: Well nourished. Fair. Appears to be stated age. Well groomed. Behavior: Pleasant. Eye contact relatively poor. Engaged. Affect: Appropriate to context. Reactive. Full range. Mood: Generally good. Dysthymic. Appropriately reactive. Thought Form: Linear and goal directed. Associations tag. Thought Content: No evidence of suicidal ideation. No evidence of delusions. No evidence of aggressive or homicidal ideation. No thoughts of self harm. Judgement: Fair. Intact as evidenced by decision making in the recent past. Insight: Good insight into symptoms and treatment options. Fair. Assessment F31.77 Bipolar disorder, in partial remission, most recent episode mixed F43.12 Post-traumatic stress disorder, chronic Plan Continue Vraylar 4.5 mg Well attempt to contact an AOT coordinator in order to ascertain whether services as now patient are able to begun prior to patient to getting an AOT. Vital Signs Vital Signs Date Time Temp Pulse Resp B/P (MAP) Pulse Ox O2 Delivery O2 Flow Rate FiO2 12/13/19 06:23 97.9 60 14 103/51 (68) 99 Room Air Current Medications Current Medications Medications (Trade) Dose Ordered Sig/Dez Route PRN Reason Start Time Stop Time Status Last Admin Dose Admin Acetaminophen (Tylenol Tab) 650 mg Q6HP PRN PO HEADACHE or DISCOMFORT 11/08/19 22:00 11/15/19 18:32 Al Hydrox/Mg Hydrox/Simethicone (Mylanta) 30 ml Q4HP PRN PO HEARTBURN/INDIGESTION 11/08/19 22:00 Cariprazine (Vraylar) 1.5 mg DAILY PO 11/29/19 09:00 12/02/19 11:51 DC 12/02/19 09:06 Cariprazine (Vraylar) 3 mg DAILY PO 12/03/19 09:00 12/13/19 09:21 Clonidine HCl (Catapres) 0.1 mg QHS PO 11/11/19 21:00 11/21/19 13:48 DC 11/20/19 20:42 Home Med (Med Rec Complete!) ASDIRECTED XX 11/08/19 22:00 11/08/19 21:59 DC Hydroxyzine HCl (Atarax) 25 mg Q4HP PRN PO ANXIETY/AGITATION 11/10/19 16:00 12/12/19 21:06 Lorazepam (Ativan) 0.5 mg DAILYPRN PRN PO ANXIETY 11/16/19 11:30 11/21/19 13:46 DC 11/21/19 12:25 Lorazepam (Ativan) 1 mg BIDP PRN PO ANXIETY 11/21/19 13:45 12/12/19 12:59 DC 12/09/19 22:54 Magnesium Hydroxide (Milk Of Magnesia) 30 ml DAILYPRN PRN PO CONSTIPATION 11/08/19 22:00 Miscellaneous (Unresolved Clarification Entry) SEE LABEL COMMENTS DAILY XX 12/05/19 09:00 12/05/19 13:05 DC Miscellaneous (Unresolved Clarification Entry) SEE LABEL COMMENTS DAILY XX 12/09/19 09:00 12/10/19 11:10 DC Oxcarbazepine (Trileptal) 75 mg BID PO 11/09/19 21:00 11/09/19 11:42 DC Oxcarbazepine (Trileptal) 150 mg QHS PO 11/09/19 21:00 11/11/19 10:16 DC 11/10/19 20:15 Oxcarbazepine (Trileptal) 300 mg BID PO 11/16/19 21:00 11/24/19 10:24 DC 11/24/19 10:09 Oxcarbazepine (Trileptal) 300 mg QHS PO 11/11/19 21:00 11/16/19 11:29 DC 11/15/19 20:37 Oxcarbazepine (Trileptal) 450 mg BID PO 11/24/19 21:00 11/28/19 13:29 DC 11/28/19 09:34 Prazosin HCl (Minipress) 1 mg QHS PO 11/21/19 21:00 12/12/19 21:07 Trazodone HCl (Desyrel) 50 mg QHSP PRN PO INSOMNIA 11/08/19 22:00 11/21/19 13:50 DC 11/20/19 23:30 Trazodone HCl (Desyrel) 100 mg QHSP PRN PO INSOMNIA 11/21/19 14:00 12/12/19 21:06 Venlafaxine HCl (Effexor Xr) 37.5 mg DAILY PO 11/10/19 09:00 11/12/19 11:24 DC 11/12/19 08:16 Allergies Coded Allergies: haloperidol (Verified Adverse Reaction, Intermediate, EPS RXN WITH UNSPECIFIED ANTIPSYCHOTROPICS, 11/08/19) aripiprazole (Verified Adverse Reaction, Mild, 11/08/19) nauseous quetiapine (Verified Adverse Reaction, Mild, 11/08/19) nauseous MARC SKELTON DO Dec 13, 2019 11:16
[2019-12-13 17:36] VITALS: BP 118/64
[2019-12-13] MEDS: hydrOXYzine 25 MG TAB PO PRN (21:10)
[2019-12-13] MEDS: traZODone 100 MG TAB PO PRN (21:10)
[2019-12-13] MEDS: PRAZOSIN 1 MG CAP PO SCH (21:10)
[2019-12-14 06:05] VITALS: BP 112/57
[2019-12-14] MEDS: CARIPRAZINE 3MG CAPSULE (VRAYLAR) PO SCH (08:36)
--- NOTE | 2019-12-14 10:41 | MHIPNPDOC ---
[facility] Progress Note Progress Note DATE OF SERVICE: 12/14/19 Subjective HPI: Dewey presents today for a follow up. He notes that he has been sleeping a lot since there is nothing to do at the institution, and it passes time. He states that he is doing well on suicidal thoughts. He is not having as many, and he notes that they come in and out sometimes. He reports significant boredom that almost caused him to become angry. He states that he will be alright, and he will be patient. Objective Appearance: Well nourished. Fair. Appears to be stated age. Well groomed. Behavior: Pleasant. Eye contact relatively poor. Engaged. Affect: Appropriate to context. Reactive. Full range. Mood: Generally good. Dysthymic. Appropriately reactive. Thought Form: Linear and goal directed. Associations tag. Thought Content: No evidence of suicidal ideation. No evidence of delusions. No evidence of aggressive or homicidal ideation. No thoughts of self harm. Judgement: Fair. Intact as evidenced by decision making in the recent past. Insight: Good insight into symptoms and treatment options. Fair. Assessment F31.77 Bipolar disorder, in partial remission, most recent episode mixed F43.12 Post-traumatic stress disorder, chronic Plan Continue Vraylar 4.5 mg Well attempt to contact an AOT coordinator in order to ascertain whether services as now patient are able to begun prior to patient to getting an AOT. Vital Signs Vital Signs Date Time Temp Pulse Resp B/P (MAP) Pulse Ox O2 Delivery O2 Flow Rate FiO2 12/14/19 09:48 Room Air 12/14/19 06:05 97.6 62 16 112/57 (75) 98 Current Medications Current Medications Medications (Trade) Dose Ordered Sig/Dez Route PRN Reason Start Time Stop Time Status Last Admin Dose Admin Acetaminophen (Tylenol Tab) 650 mg Q6HP PRN PO HEADACHE or DISCOMFORT 11/08/19 22:00 11/15/19 18:32 Al Hydrox/Mg Hydrox/Simethicone (Mylanta) 30 ml Q4HP PRN PO HEARTBURN/INDIGESTION 11/08/19 22:00 Cariprazine (Vraylar) 1.5 mg DAILY PO 11/29/19 09:00 12/02/19 11:51 DC 12/02/19 09:06 Cariprazine (Vraylar) 3 mg DAILY PO 12/03/19 09:00 12/14/19 08:36 Clonidine HCl (Catapres) 0.1 mg QHS PO 11/11/19 21:00 11/21/19 13:48 DC 11/20/19 20:42 Home Med (Med Rec Complete!) ASDIRECTED XX 11/08/19 22:00 11/08/19 21:59 DC Hydroxyzine HCl (Atarax) 25 mg Q4HP PRN PO ANXIETY/AGITATION 11/10/19 16:00 12/13/19 21:10 Lorazepam (Ativan) 0.5 mg DAILYPRN PRN PO ANXIETY 11/16/19 11:30 11/21/19 13:46 DC 11/21/19 12:25 Lorazepam (Ativan) 1 mg BIDP PRN PO ANXIETY 11/21/19 13:45 12/12/19 12:59 DC 12/09/19 22:54 Magnesium Hydroxide (Milk Of Magnesia) 30 ml DAILYPRN PRN PO CONSTIPATION 11/08/19 22:00 Miscellaneous (Unresolved Clarification Entry) SEE LABEL COMMENTS DAILY XX 12/05/19 09:00 12/05/19 13:05 DC Miscellaneous (Unresolved Clarification Entry) SEE LABEL COMMENTS DAILY XX 12/09/19 09:00 12/10/19 11:10 DC Oxcarbazepine (Trileptal) 75 mg BID PO 11/09/19 21:00 11/09/19 11:42 DC Oxcarbazepine (Trileptal) 150 mg QHS PO 11/09/19 21:00 11/11/19 10:16 DC 11/10/19 20:15 Oxcarbazepine (Trileptal) 300 mg BID PO 11/16/19 21:00 11/24/19 10:24 DC 11/24/19 10:09 Oxcarbazepine (Trileptal) 300 mg QHS PO 11/11/19 21:00 11/16/19 11:29 DC 11/15/19 20:37 Oxcarbazepine (Trileptal) 450 mg BID PO 11/24/19 21:00 11/28/19 13:29 DC 11/28/19 09:34 Prazosin HCl (Minipress) 1 mg QHS PO 11/21/19 21:00 12/13/19 21:10 Trazodone HCl (Desyrel) 50 mg QHSP PRN PO INSOMNIA 11/08/19 22:00 11/21/19 13:50 DC 11/20/19 23:30 Trazodone HCl (Desyrel) 100 mg QHSP PRN PO INSOMNIA 11/21/19 14:00 12/13/19 21:10 Venlafaxine HCl (Effexor Xr) 37.5 mg DAILY PO 11/10/19 09:00 11/12/19 11:24 DC 11/12/19 08:16 Allergies Coded Allergies: haloperidol (Verified Adverse Reaction, Intermediate, EPS RXN WITH UNSPECIFIED ANTIPSYCHOTROPICS, 11/08/19) aripiprazole (Verified Adverse Reaction, Mild, 11/08/19) nauseous quetiapine (Verified Adverse Reaction, Mild, 11/08/19) nauseous MARC SKELTON DO Dec 14, 2019 10:41
[2019-12-14 17:58] VITALS: BP 123/68
[2019-12-14] MEDS: traZODone 100 MG TAB PO PRN (20:08)
[2019-12-14] MEDS: PRAZOSIN 1 MG CAP PO SCH (20:08)
[2019-12-14] MEDS: hydrOXYzine 25 MG TAB PO PRN (20:08)
[2019-12-15 06:47] VITALS: BP 107/53
--- NOTE | 2019-12-15 09:05 | MHIPNPDOC ---
[facility] Progress Note Progress Note DATE OF SERVICE: 12/15/19 Subjective HPI: Dewey presents today for concerns regarding his general mental healthPatient denies having any suicidal thoughts today. He reports that he is feeling down about waiting for the AOT, he reports feeling frustrated and otherwise upset but is coping with the stress. Objective Appearance: Fair Hygiene. Behavior: Cooperative with good eye contact. Engaged. Pleasant. Affect: Full range. Appropriate to context. Mood: Dysthymic. Constricted. Appropriately reactive. Speech: Normal volume. Normal rate. Spontaneous and Fluid. Motor: No gross motor abnormalities. Cognition: Grossly Intact. Memory: No formal testing. 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 Thought Form: Linear and goal directed. Thought Content: No evidence of suicidal ideation. No thoughts of self harm. No evidence of aggressive or homicidal ideation. No evidence of delusions. Perception: No perceptual abnormalities noted. Judgement: Fair. Insight: Good insight into symptoms and treatment options. Assessment F31.60 Bipolar disorder, current episode mixed, unspecified F43.12 Post-traumatic stress disorder, chronic Plan Continue to try to get patient TLS housing to reduce the chance of readmission. Carpizaine 3mg daily Vital Signs Vital Signs Date Time Temp Pulse Resp B/P (MAP) Pulse Ox O2 Delivery O2 Flow Rate FiO2 12/15/19 06:47 97.9 53 14 107/53 (71) 97 Room Air Current Medications Current Medications Medications (Trade) Dose Ordered Sig/Dez Route PRN Reason Start Time Stop Time Status Last Admin Dose Admin Acetaminophen (Tylenol Tab) 650 mg Q6HP PRN PO HEADACHE or DISCOMFORT 11/08/19 22:00 11/15/19 18:32 Al Hydrox/Mg Hydrox/Simethicone (Mylanta) 30 ml Q4HP PRN PO HEARTBURN/INDIGESTION 11/08/19 22:00 Cariprazine (Vraylar) 1.5 mg DAILY PO 11/29/19 09:00 12/02/19 11:51 DC 12/02/19 09:06 Cariprazine (Vraylar) 3 mg DAILY PO 12/03/19 09:00 12/14/19 08:36 Clonidine HCl (Catapres) 0.1 mg QHS PO 11/11/19 21:00 11/21/19 13:48 DC 11/20/19 20:42 Home Med (Med Rec Complete!) ASDIRECTED XX 11/08/19 22:00 11/08/19 21:59 DC Hydroxyzine HCl (Atarax) 25 mg Q4HP PRN PO ANXIETY/AGITATION 11/10/19 16:00 12/14/19 20:08 Lorazepam (Ativan) 0.5 mg DAILYPRN PRN PO ANXIETY 11/16/19 11:30 11/21/19 13:46 DC 11/21/19 12:25 Lorazepam (Ativan) 1 mg BIDP PRN PO ANXIETY 11/21/19 13:45 12/12/19 12:59 DC 12/09/19 22:54 Magnesium Hydroxide (Milk Of Magnesia) 30 ml DAILYPRN PRN PO CONSTIPATION 11/08/19 22:00 Miscellaneous (Unresolved Clarification Entry) SEE LABEL COMMENTS DAILY XX 12/05/19 09:00 12/05/19 13:05 DC Miscellaneous (Unresolved Clarification Entry) SEE LABEL COMMENTS DAILY XX 12/09/19 09:00 12/10/19 11:10 DC Oxcarbazepine (Trileptal) 75 mg BID PO 11/09/19 21:00 11/09/19 11:42 DC Oxcarbazepine (Trileptal) 150 mg QHS PO 11/09/19 21:00 11/11/19 10:16 DC 11/10/19 20:15 Oxcarbazepine (Trileptal) 300 mg BID PO 11/16/19 21:00 11/24/19 10:24 DC 11/24/19 10:09 Oxcarbazepine (Trileptal) 300 mg QHS PO 11/11/19 21:00 11/16/19 11:29 DC 11/15/19 20:37 Oxcarbazepine (Trileptal) 450 mg BID PO 11/24/19 21:00 11/28/19 13:29 DC 11/28/19 09:34 Prazosin HCl (Minipress) 1 mg QHS PO 11/21/19 21:00 12/14/19 20:08 Trazodone HCl (Desyrel) 50 mg QHSP PRN PO INSOMNIA 11/08/19 22:00 11/21/19 13:50 DC 11/20/19 23:30 Trazodone HCl (Desyrel) 100 mg QHSP PRN PO INSOMNIA 11/21/19 14:00 12/14/19 20:08 Venlafaxine HCl (Effexor Xr) 37.5 mg DAILY PO 11/10/19 09:00 11/12/19 11:24 DC 11/12/19 08:16 Allergies Coded Allergies: haloperidol (Verified Adverse Reaction, Intermediate, EPS RXN WITH UNSPECIFIED ANTIPSYCHOTROPICS, 11/08/19) aripiprazole (Verified Adverse Reaction, Mild, 11/08/19) nauseous quetiapine (Verified Adverse Reaction, Mild, 11/08/19) nauseous MARC SKELTON DO Dec 15, 2019 09:05
[2019-12-15] MEDS: CARIPRAZINE 3MG CAPSULE (VRAYLAR) PO SCH (09:23)
[2019-12-15 17:18] VITALS: BP 117/57
[2019-12-15] MEDS: hydrOXYzine 25 MG TAB PO PRN (19:58)
[2019-12-15] MEDS: traZODone 100 MG TAB PO PRN (19:58)
[2019-12-15] MEDS: PRAZOSIN 1 MG CAP PO SCH (19:58)
[2019-12-16 06:28] VITALS: BP 113/56
[2019-12-16] MEDS: CARIPRAZINE 3MG CAPSULE (VRAYLAR) PO SCH (10:03)
--- NOTE | 2019-12-16 10:03 | MHIPNPDOC ---
[facility] Progress Note Progress Note DATE OF SERVICE: 12/16/19 Subjective HPI: Dewey presents today for a follow up. He has displaced fractures across calcaneus, which is healing minimally, and no other fractures. Objective Appearance: Fair hygiene. Affect: Mildly dysthymic, but somewhat improved. Speech: Spontaneous and Fluid. Normal rate. Normal volume. Thought Form: Linear and goal directed. Thought Content: No evidence of delusions. No evidence of suicidal ideation. No evidence of aggressive or homicidal ideation. No thoughts of self harm. Judgement: Fair. Insight: Fair. Assessment F31.30 Bipolar disorder, current episode depressed, mild or moderate severity, unspecified F43.12 Post-traumatic stress disorder, chronic Plan Continue taking Cariprazine. Awaiting final determination for AOT so that we can triage him into TLS, which would be ideal. Reactivation of his trauma likely if he returns to previous housing of which he will likely be shortly re-emitted. Vital Signs Vital Signs Date Time Temp Pulse Resp B/P (MAP) Pulse Ox O2 Delivery O2 Flow Rate FiO2 12/16/19 06:28 97.4 61 14 113/56 (75) 96 Room Air Current Medications Current Medications Medications (Trade) Dose Ordered Sig/Dez Route PRN Reason Start Time Stop Time Status Last Admin Dose Admin Acetaminophen (Tylenol Tab) 650 mg Q6HP PRN PO HEADACHE or DISCOMFORT 11/08/19 22:00 11/15/19 18:32 Al Hydrox/Mg Hydrox/Simethicone (Mylanta) 30 ml Q4HP PRN PO HEARTBURN/INDIGESTION 11/08/19 22:00 Cariprazine (Vraylar) 1.5 mg DAILY PO 11/29/19 09:00 12/02/19 11:51 DC 12/02/19 09:06 Cariprazine (Vraylar) 3 mg DAILY PO 12/03/19 09:00 12/15/19 09:23 Clonidine HCl (Catapres) 0.1 mg QHS PO 11/11/19 21:00 11/21/19 13:48 DC 11/20/19 20:42 Home Med (Med Rec Complete!) ASDIRECTED XX 11/08/19 22:00 11/08/19 21:59 DC Hydroxyzine HCl (Atarax) 25 mg Q4HP PRN PO ANXIETY/AGITATION 11/10/19 16:00 10/7/20 19:58 Lorazepam (Ativan) 0.5 mg DAILYPRN PRN PO ANXIETY 11/16/19 11:30 11/21/19 13:46 DC 11/21/19 12:25 Lorazepam (Ativan) 1 mg BIDP PRN PO ANXIETY 11/21/19 13:45 12/12/19 12:59 DC 12/09/19 22:54 Magnesium Hydroxide (Milk Of Magnesia) 30 ml DAILYPRN PRN PO CONSTIPATION 11/08/19 22:00 Miscellaneous (Unresolved Clarification Entry) SEE LABEL COMMENTS DAILY XX 12/05/19 09:00 12/05/19 13:05 DC Miscellaneous (Unresolved Clarification Entry) SEE LABEL COMMENTS DAILY XX 12/09/19 09:00 12/10/19 11:10 DC Oxcarbazepine (Trileptal) 75 mg BID PO 11/09/19 21:00 11/09/19 11:42 DC Oxcarbazepine (Trileptal) 150 mg QHS PO 11/09/19 21:00 11/11/19 10:16 DC 11/10/19 20:15 Oxcarbazepine (Trileptal) 300 mg BID PO 11/16/19 21:00 11/24/19 10:24 DC 11/24/19 10:09 Oxcarbazepine (Trileptal) 300 mg QHS PO 11/11/19 21:00 11/16/19 11:29 DC 11/15/19 20:37 Oxcarbazepine (Trileptal) 450 mg BID PO 11/24/19 21:00 11/28/19 13:29 DC 11/28/19 09:34 Prazosin HCl (Minipress) 1 mg QHS PO 11/21/19 21:00 12/15/19 19:58 Trazodone HCl (Desyrel) 50 mg QHSP PRN PO INSOMNIA 11/08/19 22:00 11/21/19 13:50 DC 11/20/19 23:30 Trazodone HCl (Desyrel) 100 mg QHSP PRN PO INSOMNIA 11/21/19 14:00 12/15/19 19:58 Venlafaxine HCl (Effexor Xr) 37.5 mg DAILY PO 11/10/19 09:00 11/12/19 11:24 DC 11/12/19 08:16 Allergies Coded Allergies: haloperidol (Verified Adverse Reaction, Intermediate, EPS RXN WITH UNSPECIFIED ANTIPSYCHOTROPICS, 11/08/19) aripiprazole (Verified Adverse Reaction, Mild, 11/08/19) nauseous quetiapine (Verified Adverse Reaction, Mild, 11/08/19) nauseous MARC SKELTON DO Dec 16, 2019 10:03
[2019-12-16] MEDS: PRAZOSIN 1 MG CAP PO SCH (20:24)
[2019-12-16] MEDS: traZODone 100 MG TAB PO PRN (20:24)
[2019-12-17 06:21] VITALS: BP 107/52
[2019-12-17] MEDS: CARIPRAZINE 3MG CAPSULE (VRAYLAR) PO SCH (09:34)
[2019-12-17 17:58] VITALS: BP 118/76
[2019-12-17] MEDS: traZODone 100 MG TAB PO PRN (20:05)
[2019-12-17] MEDS: PRAZOSIN 1 MG CAP PO SCH (20:06)
[2019-12-18 06:41] VITALS: BP 127/58
[2019-12-18] MEDS: CARIPRAZINE 3MG CAPSULE (VRAYLAR) PO SCH (09:37)
[2019-12-18 17:57] VITALS: BP 123/60
[2019-12-18] MEDS: PRAZOSIN 1 MG CAP PO SCH (21:34)
[2019-12-18] MEDS: traZODone 100 MG TAB PO PRN (22:14)
[2019-12-18] MEDS: hydrOXYzine 25 MG TAB PO PRN (22:14)
[2019-12-19 06:48] VITALS: BP 110/52
[2019-12-19] MEDS: CARIPRAZINE 3MG CAPSULE (VRAYLAR) PO SCH (09:53)
[2019-12-19 17:56] VITALS: BP 139/65
[2019-12-19] MEDS: PRAZOSIN 1 MG CAP PO SCH (21:05)
[2019-12-19] MEDS: traZODone 100 MG TAB PO PRN (21:05)
[2019-12-20 06:32] VITALS: BP 131/66
[2019-12-20] MEDS: CARIPRAZINE 3MG CAPSULE (VRAYLAR) PO SCH (09:35)
--- NOTE | 2019-12-20 09:42 | MHIPNPDOC ---
[facility] Progress Note Progress Note DATE OF SERVICE: 12/20/19 Subjective HPI: Dewey presents today for follow-up. Patient is still feeling discouraged but is trying to get a better feel on how to cope on the unit. Reports intermittent suicidal thoughts from time to time from the stress of trying to figure out his home life and difficulties of this experience. Objective Appearance: Appears to be stated age. Well groomed. Well nourished. Mood: Dysthymic. Speech: Normal rate. Normal volume. Spontaneous and Fluid. Thought Content: No evidence of delusions. No thoughts of self harm. No evidence of aggressive or homicidal ideation. Intermittent suicidal thoughts. Judgement: Intact as evidenced by decision making in the recent past. Insight: Good insight into symptoms and treatment options. Assessment F31.60 Bipolar disorder, current episode mixed, unspecified F43.10 Post-traumatic stress disorder, unspecified Plan Continue medication. Hopefully, be able to get housing sorted out earlier so that the coordinate can approve records. Vital Signs Vital Signs Date Time Temp Pulse Resp B/P (MAP) Pulse Ox O2 Delivery O2 Flow Rate FiO2 12/20/19 06:32 97.7 52 14 131/66 (87) 98 12/19/19 08:09 Room Air Current Medications Current Medications Medications (Trade) Dose Ordered Sig/Dez Route PRN Reason Start Time Stop Time Status Last Admin Dose Admin Acetaminophen (Tylenol Tab) 650 mg Q6HP PRN PO HEADACHE or DISCOMFORT 11/08/19 22:00 11/15/19 18:32 Al Hydrox/Mg Hydrox/Simethicone (Mylanta) 30 ml Q4HP PRN PO HEARTBURN/INDIGESTION 11/08/19 22:00 Cariprazine (Vraylar) 1.5 mg DAILY PO 11/29/19 09:00 12/02/19 11:51 DC 12/02/19 09:06 Cariprazine (Vraylar) 3 mg DAILY PO 12/03/19 09:00 12/20/19 09:35 Clonidine HCl (Catapres) 0.1 mg QHS PO 11/11/19 21:00 11/21/19 13:48 DC 11/20/19 20:42 Home Med (Med Rec Complete!) ASDIRECTED XX 11/08/19 22:00 11/08/19 21:59 DC Hydroxyzine HCl (Atarax) 25 mg Q4HP PRN PO ANXIETY/AGITATION 11/10/19 16:00 12/18/19 22:14 Lorazepam (Ativan) 0.5 mg DAILYPRN PRN PO ANXIETY 11/16/19 11:30 11/21/19 13:46 DC 11/21/19 12:25 Lorazepam (Ativan) 1 mg BIDP PRN PO ANXIETY 11/21/19 13:45 12/12/19 12:59 DC 12/09/19 22:54 Magnesium Hydroxide (Milk Of Magnesia) 30 ml DAILYPRN PRN PO CONSTIPATION 11/08/19 22:00 Miscellaneous (Unresolved Clarification Entry) SEE LABEL COMMENTS DAILY XX 12/05/19 09:00 12/05/19 13:05 DC Miscellaneous (Unresolved Clarification Entry) SEE LABEL COMMENTS DAILY XX 12/09/19 09:00 12/10/19 11:10 DC Oxcarbazepine (Trileptal) 75 mg BID PO 11/09/19 21:00 11/09/19 11:42 DC Oxcarbazepine (Trileptal) 150 mg QHS PO 11/09/19 21:00 11/11/19 10:16 DC 11/10/19 20:15 Oxcarbazepine (Trileptal) 300 mg BID PO 11/16/19 21:00 11/24/19 10:24 DC 11/24/19 10:09 Oxcarbazepine (Trileptal) 300 mg QHS PO 11/11/19 21:00 11/16/19 11:29 DC 11/15/19 20:37 Oxcarbazepine (Trileptal) 450 mg BID PO 11/24/19 21:00 11/28/19 13:29 DC 11/28/19 09:34 Prazosin HCl (Minipress) 1 mg QHS PO 11/21/19 21:00 12/19/19 21:05 Trazodone HCl (Desyrel) 50 mg QHSP PRN PO INSOMNIA 11/08/19 22:00 11/21/19 13:50 DC 11/20/19 23:30 Trazodone HCl (Desyrel) 100 mg QHSP PRN PO INSOMNIA 11/21/19 14:00 12/19/19 21:05 Venlafaxine HCl (Effexor Xr) 37.5 mg DAILY PO 11/10/19 09:00 11/12/19 11:24 DC 11/12/19 08:16 Allergies Coded Allergies: haloperidol (Verified Adverse Reaction, Intermediate, EPS RXN WITH UNSPECIFIED ANTIPSYCHOTROPICS, 11/08/19) aripiprazole (Verified Adverse Reaction, Mild, 11/08/19) nauseous quetiapine (Verified Adverse Reaction, Mild, 11/08/19) nauseous MARC SKELTON DO Dec 20, 2019 09:42
[2019-12-20 16:02] VITALS: BP 112/60
[2019-12-20] MEDS: traZODone 100 MG TAB PO PRN (20:16)
[2019-12-20] MEDS: PRAZOSIN 1 MG CAP PO SCH (20:16)
[2019-12-21 06:25] VITALS: BP 118/56
[2019-12-21] MEDS: CARIPRAZINE 3MG CAPSULE (VRAYLAR) PO SCH (09:04)
--- NOTE | 2019-12-21 09:13 | REP ---
BILATERAL ANKLE SERIES: 8-VIEWS HISTORY: Injury. TECHNIQUE: Four views of each ankle are obtained. COMPARISON: Radiographs 10/17/2019. CT study 10/17/2019. Show bilateral calcaneal fractures. FINDINGS: Ankle mortise is intact bilaterally. No tibiotalar or distal fibular fracture is appreciated. Some healing sclerosis is visible at the fracture of each posterior calcaneus without significant displacement. Bohlers angle is not depressed on either side. IMPRESSION: Healing posterior calcaneal fractures bilaterally. No ankle fracture seen. MTDD
--- NOTE | 2019-12-21 09:13 | REP ---
BILATERAL FOOT SERIES: 8-VIEWS HISTORY: Foot injury. COMPARISON: Foot radiographs 10/24/2019. Patient is status post bilateral posterior calcaneal fractures. FINDINGS: There is some healing sclerosis at the site of the calcaneal fractures in the posterior aspect of each calcaneus. No acute fracture is seen. No malalignment is seen. Overall mineralization pattern is normal. IMPRESSION: Healing posterior calcaneal fractures bilaterally. JOSE
--- NOTE | 2019-12-21 10:42 | MHIPNPDOC ---
[facility] Progress Note Progress Note DATE OF SERVICE: 12/21/19 Subjective HPI: Dewey was met with briefly today. He reports feeling somewhat stable. The interim SI is present sometimes during the day primarily related to his feelings of hopelessness, AOT situation, and difficulties trying to figure out housing. He reports that he has been making some progress trying to have a more regular day. Orthopedics reported he does not need food and patient was amenable as he reported it was not helpful for him. AOT reported that he did not meet criteria, however, TLS appears to have reconsidered and may give him a bed. Objective Behavior: Engaged. Cooperative with good eye contact. Pleasant. Mood: Appropriately reactive. Euthymic. Generally good. Motor: No gross motor abnormalities. Thought Form: Linear and goal directed. Thought Content: No evidence of delusions. No evidence of aggressive or homicidal ideation. No evidence of suicidal ideation. No thoughts of self harm. Judgement: Fair. Insight: Fair. 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 Well likely discharge him this week, if we can get him into TLS. Vital Signs Vital Signs Date Time Temp Pulse Resp B/P (MAP) Pulse Ox O2 Delivery O2 Flow Rate FiO2 12/21/19 06:25 97.5 60 18 118/56 (76) 12/20/19 06:32 98 12/19/19 08:09 Room Air Current Medications Current Medications Medications (Trade) Dose Ordered Sig/Dez Route PRN Reason Start Time Stop Time Status Last Admin Dose Admin Acetaminophen (Tylenol Tab) 650 mg Q6HP PRN PO HEADACHE or DISCOMFORT 11/08/19 22:00 11/15/19 18:32 Al Hydrox/Mg Hydrox/Simethicone (Mylanta) 30 ml Q4HP PRN PO HEARTBURN/INDIGESTION 11/08/19 22:00 Cariprazine (Vraylar) 1.5 mg DAILY PO 11/29/19 09:00 12/02/19 11:51 DC 12/02/19 09:06 Cariprazine (Vraylar) 3 mg DAILY PO 12/03/19 09:00 12/21/19 09:04 Clonidine HCl (Catapres) 0.1 mg QHS PO 11/11/19 21:00 11/21/19 13:48 DC 11/20/19 20:42 Home Med (Med Rec Complete!) ASDIRECTED XX 11/08/19 22:00 11/08/19 21:59 DC Hydroxyzine HCl (Atarax) 25 mg Q4HP PRN PO ANXIETY/AGITATION 11/10/19 16:00 12/18/19 22:14 Lorazepam (Ativan) 0.5 mg DAILYPRN PRN PO ANXIETY 11/16/19 11:30 11/21/19 13:46 DC 11/21/19 12:25 Lorazepam (Ativan) 1 mg BIDP PRN PO ANXIETY 11/21/19 13:45 12/12/19 12:59 DC 12/09/19 22:54 Magnesium Hydroxide (Milk Of Magnesia) 30 ml DAILYPRN PRN PO CONSTIPATION 11/08/19 22:00 Miscellaneous (Unresolved Clarification Entry) SEE LABEL COMMENTS DAILY XX 12/05/19 09:00 12/05/19 13:05 DC Miscellaneous (Unresolved Clarification Entry) SEE LABEL COMMENTS DAILY XX 12/09/19 09:00 12/10/19 11:10 DC Oxcarbazepine (Trileptal) 75 mg BID PO 11/09/19 21:00 11/09/19 11:42 DC Oxcarbazepine (Trileptal) 150 mg QHS PO 11/09/19 21:00 11/11/19 10:16 DC 11/10/19 20:15 Oxcarbazepine (Trileptal) 300 mg BID PO 11/16/19 21:00 11/24/19 10:24 DC 11/24/19 10:09 Oxcarbazepine (Trileptal) 300 mg QHS PO 11/11/19 21:00 11/16/19 11:29 DC 11/15/19 20:37 Oxcarbazepine (Trileptal) 450 mg BID PO 11/24/19 21:00 11/28/19 13:29 DC 11/28/19 09:34 Prazosin HCl (Minipress) 1 mg QHS PO 11/21/19 21:00 12/20/19 20:16 Trazodone HCl (Desyrel) 50 mg QHSP PRN PO INSOMNIA 11/08/19 22:00 11/21/19 13:50 DC 11/20/19 23:30 Trazodone HCl (Desyrel) 100 mg QHSP PRN PO INSOMNIA 11/21/19 14:00 12/20/19 20:16 Venlafaxine HCl (Effexor Xr) 37.5 mg DAILY PO 11/10/19 09:00 11/12/19 11:24 DC 11/12/19 08:16 Allergies Coded Allergies: haloperidol (Verified Adverse Reaction, Intermediate, EPS RXN WITH UNSPECIFIED ANTIPSYCHOTROPICS, 11/08/19) aripiprazole (Verified Adverse Reaction, Mild, 11/08/19) nauseous quetiapine (Verified Adverse Reaction, Mild, 11/08/19) nauseous MARC SKELTON DO Dec 21, 2019 10:42
[2019-12-21 16:37] VITALS: BP 116/78
[2019-12-21] MEDS: traZODone 100 MG TAB PO PRN (21:07)
[2019-12-21] MEDS: PRAZOSIN 1 MG CAP PO SCH (21:07)
[2019-12-22 06:28] VITALS: BP 128/58
[2019-12-22] MEDS: CARIPRAZINE 3MG CAPSULE (VRAYLAR) PO SCH (08:55)
--- NOTE | 2019-12-22 09:39 | MHIPN ---
DATE: 12/17/2019 VITAL SIGNS: Blood pressure 107/52, pulse 58, temperature 96.5. CHIEF COMPLAINT: Says feels okay. SUBJECTIVE: Seen for follow-up. I am assigned to his care, as Dr. Robledo is away today. The patient is seen in the presence of staff, he says he is feeling better, and that his moods are improved, also suggests he is trying to remain patient, while applications are made to AOT and transitional living services. Says tries to keep even-keeled. Says sleeps is okay. He has been eating okay. Denies any pain of the right leg, although goes say at times when he walks there is a bit of discomfort. MENTAL STATUS EXAM: Neat, cooperative. He has a cast on his right leg. No agitation. No psychomotor retardation. He is coherent. Affect is restricted in range but shows some reactivity. He denies any suicidal thoughts or intents. No homicidal ideations or intents. No evidence of any psychosis. Cognition is grossly intact. Judgment and insight fair. ASSESSMENT: Bipolar disorder, current episode depressed. PLAN: Continue current care, observations, and further recommendations will be made depending on the clinical picture, he is being planned for AOT and transitional living services are apparently also going to be involved. JOSE
--- NOTE | 2019-12-22 10:55 | MHIPNPDOC ---
[facility] Progress Note Progress Note DATE OF SERVICE: 12/22/19 Subjective HPI: Dewey presents today for concerns regarding his follow up. Patient states he has been making progress. Objective Appearance: Well groomed. Well nourished. Appears to be stated age. Behavior: Engaged. Cooperative with good eye contact. Pleasant. Affect: Appropriate to context. Full range. Mood: Generally good. Appropriately reactive. Euthymic. Speech: Normal volume. Normal rate. Spontaneous and Fluid. Motor: No gross motor abnormalities. Cognition: Alert, Attentive, and Oriented to person, place, time. Memory: No formal testing. No gross abnormalities of short or care home memory noted during interview. Thought Form: Linear and goal directed. Thought Content: No evidence of suicidal ideation. No evidence of delusions. No evidence of aggressive or homicidal ideation. No thoughts of self harm. Perception: No perceptual abnormalities noted. Judgement: Intact as evidenced by decision making in the recent past. Insight: Good insight into symptoms and treatment options. Assessment F31.10 Bipolar disorder, current episode manic without psychotic features, unspecified F43.12 Post-traumatic stress disorder, chronic Plan Continue with same milligram dosage daily. Will attempt to get authorization at this time for potential discharge. Vital Signs Vital Signs Date Time Temp Pulse Resp B/P (MAP) Pulse Ox O2 Delivery O2 Flow Rate FiO2 12/22/19 06:28 97.7 55 16 128/58 (81) 12/20/19 06:32 98 12/19/19 08:09 Room Air Current Medications Current Medications Medications (Trade) Dose Ordered Sig/Dez Route PRN Reason Start Time Stop Time Status Last Admin Dose Admin Acetaminophen (Tylenol Tab) 650 mg Q6HP PRN PO HEADACHE or DISCOMFORT 11/08/19 22:00 11/15/19 18:32 Al Hydrox/Mg Hydrox/Simethicone (Mylanta) 30 ml Q4HP PRN PO HEARTBURN/INDIGESTION 11/08/19 22:00 Cariprazine (Vraylar) 1.5 mg DAILY PO 11/29/19 09:00 12/02/19 11:51 DC 12/02/19 09:06 Cariprazine (Vraylar) 3 mg DAILY PO 12/03/19 09:00 12/22/19 08:55 Clonidine HCl (Catapres) 0.1 mg QHS PO 11/11/19 21:00 11/21/19 13:48 DC 11/20/19 20:42 Home Med (Med Rec Complete!) ASDIRECTED XX 11/08/19 22:00 11/08/19 21:59 DC Hydroxyzine HCl (Atarax) 25 mg Q4HP PRN PO ANXIETY/AGITATION 11/10/19 16:00 12/18/19 22:14 Lorazepam (Ativan) 0.5 mg DAILYPRN PRN PO ANXIETY 11/16/19 11:30 11/21/19 13:46 DC 11/21/19 12:25 Lorazepam (Ativan) 1 mg BIDP PRN PO ANXIETY 11/21/19 13:45 12/12/19 12:59 DC 12/09/19 22:54 Magnesium Hydroxide (Milk Of Magnesia) 30 ml DAILYPRN PRN PO CONSTIPATION 11/08/19 22:00 Miscellaneous (Unresolved Clarification Entry) SEE LABEL COMMENTS DAILY XX 12/05/19 09:00 12/05/19 13:05 DC Miscellaneous (Unresolved Clarification Entry) SEE LABEL COMMENTS DAILY XX 12/09/19 09:00 12/10/19 11:10 DC Oxcarbazepine (Trileptal) 75 mg BID PO 11/09/19 21:00 11/09/19 11:42 DC Oxcarbazepine (Trileptal) 150 mg QHS PO 11/09/19 21:00 11/11/19 10:16 DC 11/10/19 20:15 Oxcarbazepine (Trileptal) 300 mg BID PO 11/16/19 21:00 11/24/19 10:24 DC 11/24/19 10:09 Oxcarbazepine (Trileptal) 300 mg QHS PO 11/11/19 21:00 11/16/19 11:29 DC 11/15/19 20:37 Oxcarbazepine (Trileptal) 450 mg BID PO 11/24/19 21:00 11/28/19 13:29 DC 11/28/19 09:34 Prazosin HCl (Minipress) 1 mg QHS PO 11/21/19 21:00 12/21/19 21:07 Trazodone HCl (Desyrel) 50 mg QHSP PRN PO INSOMNIA 11/08/19 22:00 9/13/20 13:50 DC 11/20/19 23:30 Trazodone HCl (Desyrel) 100 mg QHSP PRN PO INSOMNIA 11/21/19 14:00 12/21/19 21:07 Venlafaxine HCl (Effexor Xr) 37.5 mg DAILY PO 11/10/19 09:00 11/12/19 11:24 DC 11/12/19 08:16 Allergies Coded Allergies: haloperidol (Verified Adverse Reaction, Intermediate, EPS RXN WITH UNSPECIFIED ANTIPSYCHOTROPICS, 11/08/19) aripiprazole (Verified Adverse Reaction, Mild, 11/08/19) nauseous quetiapine (Verified Adverse Reaction, Mild, 11/08/19) nauseous MARC SKELTON DO Dec 22, 2019 10:54
[2019-12-22] MEDS ORDERED: VRAY3CAP PO (11:38)
[2019-12-22 16:38] VITALS: BP 114/60
[2019-12-22] MEDS: PRAZOSIN 1 MG CAP PO SCH (20:55)
[2019-12-22] MEDS: traZODone 100 MG TAB PO PRN (20:56)
[2019-12-23 06:28] VITALS: BP 118/65
[2019-12-23] MEDS: CARIPRAZINE 3MG CAPSULE (VRAYLAR) PO SCH (09:12)
--- NOTE | 2019-12-23 09:39 | MHIPNPDOC ---
[facility] Progress Note Progress Note DATE OF SERVICE: 12/23/19 Subjective HPI: Dewey presents today for follow-up. He mentions he feels hopeful about potentially being able to go to [facility] and that he is doing well. Otherwise, he reports hes tolerating it well and it controls his mood swings. He reports feeling hopeful and somewhat better with the potential that he could go home. MEDICATIONS: His medication for Prochlorperazine had been declined. However, he reported that he had tried Abilify and Seroquel, but both with poor results. Objective Appearance: Appears to be stated age. Well groomed. Well nourished. Behavior: Pleasant. Cooperative with good eye contact. Engaged. Affect: Appropriate to context. Full range. Mood: Generally good. Euthymic. Appropriately reactive. Speech: Normal rate. Spontaneous and Fluid. Normal volume. Motor: No gross motor abnormalities. Cognition: Alert, Attentive, and Oriented to person, place, time. Memory: No formal testing. No gross abnormalities of short or intermediate teacher memory noted during interview. Thought Form: Linear and goal directed. Thought Content: No thoughts of self harm. No evidence of aggressive or homicidal ideation. No evidence of delusions. No evidence of suicidal ideation. Perception: No perceptual abnormalities noted. Judgement: Intact as evidenced by decision making in the recent past. Insight: Good insight into symptoms and treatment options. Assessment F31.64 Bipolar disorder, current episode mixed, severe, with psychotic features Plan Continue medication daily. We will put in an appeal at this time based on this new information and will attempt to authorize medication before he potentially leaves on Friday to go to [facility]. Vital Signs Vital Signs Date Time Temp Pulse Resp B/P (MAP) Pulse Ox O2 Delivery O2 Flow Rate FiO2 12/23/19 06:28 97.4 57 16 118/65 (82) 12/20/19 06:32 98 12/19/19 08:09 Room Air Current Medications Current Medications Medications (Trade) Dose Ordered Sig/Dez Route PRN Reason Start Time Stop Time Status Last Admin Dose Admin Acetaminophen (Tylenol Tab) 650 mg Q6HP PRN PO HEADACHE or DISCOMFORT 11/08/19 22:00 11/15/19 18:32 Al Hydrox/Mg Hydrox/Simethicone (Mylanta) 30 ml Q4HP PRN PO HEARTBURN/INDIGESTION 11/08/19 22:00 Cariprazine (Vraylar) 1.5 mg DAILY PO 11/29/19 09:00 12/02/19 11:51 DC 12/02/19 09:06 Cariprazine (Vraylar) 3 mg DAILY PO 12/03/19 09:00 12/23/19 09:12 Clonidine HCl (Catapres) 0.1 mg QHS PO 11/11/19 21:00 11/21/19 13:48 DC 11/20/19 20:42 Home Med (Med Rec Complete!) ASDIRECTED XX 11/08/19 22:00 11/08/19 21:59 DC Hydroxyzine HCl (Atarax) 25 mg Q4HP PRN PO ANXIETY/AGITATION 11/10/19 16:00 12/18/19 22:14 Lorazepam (Ativan) 0.5 mg DAILYPRN PRN PO ANXIETY 11/16/19 11:30 11/21/19 13:46 DC 11/21/19 12:25 Lorazepam (Ativan) 1 mg BIDP PRN PO ANXIETY 11/21/19 13:45 12/12/19 12:59 DC 12/09/19 22:54 Magnesium Hydroxide (Milk Of Magnesia) 30 ml DAILYPRN PRN PO CONSTIPATION 11/08/19 22:00 Miscellaneous (Unresolved Clarification Entry) SEE LABEL COMMENTS DAILY XX 12/05/19 09:00 12/05/19 13:05 DC Miscellaneous (Unresolved Clarification Entry) SEE LABEL COMMENTS DAILY XX 12/09/19 09:00 12/10/19 11:10 DC Oxcarbazepine (Trileptal) 75 mg BID PO 11/09/19 21:00 11/09/19 11:42 DC Oxcarbazepine (Trileptal) 150 mg QHS PO 11/09/19 21:00 11/11/19 10:16 DC 11/10/19 20:15 Oxcarbazepine (Trileptal) 300 mg BID PO 11/16/19 21:00 11/24/19 10:24 DC 11/24/19 10:09 Oxcarbazepine (Trileptal) 300 mg QHS PO 11/11/19 21:00 11/16/19 11:29 DC 11/15/19 20:37 Oxcarbazepine (Trileptal) 450 mg BID PO 11/24/19 21:00 11/28/19 13:29 DC 11/28/19 09:34 Prazosin HCl (Minipress) 1 mg QHS PO 11/21/19 21:00 12/22/19 20:55 Trazodone HCl (Desyrel) 50 mg QHSP PRN PO INSOMNIA 11/08/19 22:00 11/21/19 13:50 DC 11/20/19 23:30 Trazodone HCl (Desyrel) 100 mg QHSP PRN PO INSOMNIA 11/21/19 14:00 12/22/19 20:56 Venlafaxine HCl (Effexor Xr) 37.5 mg DAILY PO 11/10/19 09:00 11/12/19 11:24 DC 11/12/19 08:16 Allergies Coded Allergies: haloperidol (Verified Adverse Reaction, Intermediate, EPS RXN WITH UNSPECIFIED ANTIPSYCHOTROPICS, 11/08/19) aripiprazole (Verified Adverse Reaction, Mild, 11/08/19) nauseous quetiapine (Verified Adverse Reaction, Mild, 11/08/19) nauseous MARC SKELTON DO Dec 23, 2019 09:39
[2019-12-23] MEDS: hydrOXYzine 25 MG TAB PO PRN (19:57)
[2019-12-23] MEDS: traZODone 100 MG TAB PO PRN (19:57)
[2019-12-23] MEDS: PRAZOSIN 1 MG CAP PO SCH (19:57)
[2019-12-24 07:04] VITALS: BP 104/52
[2019-12-24] MEDS: CARIPRAZINE 3MG CAPSULE (VRAYLAR) PO SCH (08:45)
--- NOTE | 2019-12-24 10:29 | MHIPNPDOC ---
[facility] Progress Note Progress Note DATE OF SERVICE: 12/24/19 Subjective HPI: Met with patient briefly, reports he is feeling much improved as he was accepted to [facility]. He has a bed date on Friday. Currently, an appeal process for his Cariprazine. Going to [facility], he feels much prepared and ready. MEDICAL HISTORY: He reports that it is the best medication hes ever taken and that he wishes to continue on it as it has been very helpful for his mood in combination with h is improved social status. Objective Appearance: Well nourished. Appears to be stated age. Well groomed. Behavior: Engaged. Pleasant. Cooperative with good eye contact. Affect: Appropriate to context. Full range. Mood: Euthymic. Generally good. Appropriately reactive. Speech: Normal volume. Spontaneous and Fluid. Normal rate. Motor: No gross motor abnormalities. Cognition: Alert, Attentive, and Oriented to person, place, time. Memory: No formal testing. No gross abnormalities of short or salvage determiner memory noted during interview. Thought Form: Linear and goal directed. Thought Content: No thoughts of self harm. No evidence of aggressive or homicidal ideation. No evidence of suicidal ideation. No evidence of delusions. Perception: No perceptual abnormalities noted. Judgement: Intact as evidenced by decision making in the recent past. Insight: Good insight into symptoms and treatment options. 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 Vital Signs Vital Signs Date Time Temp Pulse Resp B/P (MAP) Pulse Ox O2 Delivery O2 Flow Rate FiO2 12/24/19 07:04 98.5 53 14 104/52 (69) Room Air 12/20/19 06:32 98 Current Medications Current Medications Medications (Trade) Dose Ordered Sig/Dez Route PRN Reason Start Time Stop Time Status Last Admin Dose Admin Acetaminophen (Tylenol Tab) 650 mg Q6HP PRN PO HEADACHE or DISCOMFORT 11/08/19 22:00 11/15/19 18:32 Al Hydrox/Mg Hydrox/Simethicone (Mylanta) 30 ml Q4HP PRN PO HEARTBURN/INDIGESTION 11/08/19 22:00 Cariprazine (Vraylar) 1.5 mg DAILY PO 11/29/19 09:00 12/02/19 11:51 DC 12/02/19 09:06 Cariprazine (Vraylar) 3 mg DAILY PO 12/03/19 09:00 12/24/19 08:45 Clonidine HCl (Catapres) 0.1 mg QHS PO 11/11/19 21:00 11/21/19 13:48 DC 11/20/19 20:42 Home Med (Med Rec Complete!) ASDIRECTED XX 11/08/19 22:00 11/08/19 21:59 DC Hydroxyzine HCl (Atarax) 25 mg Q4HP PRN PO ANXIETY/AGITATION 11/10/19 16:00 12/23/19 19:57 Lorazepam (Ativan) 0.5 mg DAILYPRN PRN PO ANXIETY 11/16/19 11:30 11/21/19 13:46 DC 11/21/19 12:25 Lorazepam (Ativan) 1 mg BIDP PRN PO ANXIETY 11/21/19 13:45 12/12/19 12:59 DC 12/09/19 22:54 Magnesium Hydroxide (Milk Of Magnesia) 30 ml DAILYPRN PRN PO CONSTIPATION 11/08/19 22:00 Miscellaneous (Unresolved Clarification Entry) SEE LABEL COMMENTS DAILY XX 12/05/19 09:00 12/05/19 13:05 DC Miscellaneous (Unresolved Clarification Entry) SEE LABEL COMMENTS DAILY XX 12/09/19 09:00 12/10/19 11:10 DC Oxcarbazepine (Trileptal) 75 mg BID PO 11/09/19 21:00 11/09/19 11:42 DC Oxcarbazepine (Trileptal) 150 mg QHS PO 11/09/19 21:00 11/11/19 10:16 DC 11/10/19 20:15 Oxcarbazepine (Trileptal) 300 mg BID PO 11/16/19 21:00 11/24/19 10:24 DC 11/24/19 10:09 Oxcarbazepine (Trileptal) 300 mg QHS PO 11/11/19 21:00 11/16/19 11:29 DC 11/15/19 20:37 Oxcarbazepine (Trileptal) 450 mg BID PO 11/24/19 21:00 11/28/19 13:29 DC 11/28/19 09:34 Prazosin HCl (Minipress) 1 mg QHS PO 11/21/19 21:00 12/23/19 19:57 Trazodone HCl (Desyrel) 50 mg QHSP PRN PO INSOMNIA 11/08/19 22:00 11/21/19 13:50 DC 11/20/19 23:30 Trazodone HCl (Desyrel) 100 mg QHSP PRN PO INSOMNIA 11/21/19 14:00 12/23/19 19:57 Venlafaxine HCl (Effexor Xr) 37.5 mg DAILY PO 11/10/19 09:00 11/12/19 11:24 DC 11/12/19 08:16 Allergies Coded Allergies: haloperidol (Verified Adverse Reaction, Intermediate, EPS RXN WITH UNSPECIFIED ANTIPSYCHOTROPICS, 11/08/19) aripiprazole (Verified Adverse Reaction, Mild, 11/08/19) nauseous quetiapine (Verified Adverse Reaction, Mild, 11/08/19) nauseous MARC SKELTON DO Dec 24, 2019 10:28
[2019-12-24 16:05] VITALS: BP 124/58
[2019-12-24] MEDS: hydrOXYzine 25 MG TAB PO PRN (20:44)
[2019-12-24] MEDS: traZODone 100 MG TAB PO PRN (20:44)
[2019-12-24] MEDS: PRAZOSIN 1 MG CAP PO SCH (20:44)
[2019-12-25 06:26] VITALS: BP 108/59
[2019-12-25] MEDS: CARIPRAZINE 3MG CAPSULE (VRAYLAR) PO SCH (09:25)
[2019-12-25 16:26] VITALS: BP 112/59
[2019-12-25 20:32] VITALS: BP 112/59
[2019-12-25] MEDS: PRAZOSIN 1 MG CAP PO SCH (20:32)
[2019-12-25] MEDS: traZODone 100 MG TAB PO PRN (20:33)
[2019-12-25] MEDS: hydrOXYzine 25 MG TAB PO PRN (20:33)
[2019-12-26 06:24] VITALS: BP 117/61
[2019-12-26] MEDS: CARIPRAZINE 3MG CAPSULE (VRAYLAR) PO SCH (09:58)
[2019-12-26 16:59] VITALS: BP 112/80
[2019-12-26] MEDS: PRAZOSIN 1 MG CAP PO SCH (20:19)
[2019-12-26] MEDS: traZODone 100 MG TAB PO PRN (21:27)
[2019-12-26] MEDS: hydrOXYzine 25 MG TAB PO PRN (21:27)
[2019-12-27 06:39] VITALS: BP 114/53
[2019-12-27] MEDS: CARIPRAZINE 3MG CAPSULE (VRAYLAR) PO SCH (09:14)
--- NOTE | 2019-12-27 09:50 | MHIPNPDOC ---
[facility] Progress Note Progress Note DATE OF SERVICE: 12/27/19 Subjective HPI: Dewey presents today in regard to his discharge, he reports he feels well and is ready to be discharged. He is excited for the future and reports his symptoms are well controlled. Objective Appearance: Appears to be stated age. Well nourished. Well groomed. Behavior: Pleasant. Cooperative with good eye contact. Engaged. Affect: Appropriate to context. Full range. Mood: Euthymic. Appropriately reactive. Generally good. Speech: Normal volume. Spontaneous and Fluid. Normal rate. Motor: No gross motor abnormalities. Cognition: Alert, Attentive, and Oriented to person, place, time. Memory: No formal testing. No gross abnormalities of short or alf memory noted during interview. Thought Form: Linear and goal directed. Thought Content: No evidence of suicidal ideation. No evidence of delusions. No evidence of aggressive or homicidal ideation. No thoughts of self harm. Perception: No perceptual abnormalities noted. Judgement: Intact as evidenced by decision making in the recent past. Insight: Good insight into symptoms and treatment options. Assessment F31.9 Bipolar disorder, unspecified F43.10 Post-traumatic stress disorder, unspecified Plan Continue Carpizaine 3 mg daily. Vital Signs Vital Signs Date Time Temp Pulse Resp B/P (MAP) Pulse Ox O2 Delivery O2 Flow Rate FiO2 12/27/19 06:39 97.1 52 14 114/53 (73) 12/25/19 08:55 Room Air Current Medications Current Medications Medications (Trade) Dose Ordered Sig/Dez Route PRN Reason Start Time Stop Time Status Last Admin Dose Admin Acetaminophen (Tylenol Tab) 650 mg Q6HP PRN PO HEADACHE or DISCOMFORT 11/08/19 22:00 11/15/19 18:32 Al Hydrox/Mg Hydrox/Simethicone (Mylanta) 30 ml Q4HP PRN PO HEARTBURN/INDIGESTION 11/08/19 22:00 Cariprazine (Vraylar) 1.5 mg DAILY PO 11/29/19 09:00 12/02/19 11:51 DC 12/02/19 09:06 Cariprazine (Vraylar) 3 mg DAILY PO 12/03/19 09:00 12/27/19 09:14 Clonidine HCl (Catapres) 0.1 mg QHS PO 11/11/19 21:00 11/21/19 13:48 DC 11/20/19 20:42 Home Med (Med Rec Complete!) ASDIRECTED XX 11/08/19 22:00 11/08/19 21:59 DC Hydroxyzine HCl (Atarax) 25 mg Q4HP PRN PO ANXIETY/AGITATION 11/10/19 16:00 12/26/19 21:27 Lorazepam (Ativan) 0.5 mg DAILYPRN PRN PO ANXIETY 11/16/19 11:30 11/21/19 13:46 DC 11/21/19 12:25 Lorazepam (Ativan) 1 mg BIDP PRN PO ANXIETY 11/21/19 13:45 12/12/19 12:59 DC 12/09/19 22:54 Magnesium Hydroxide (Milk Of Magnesia) 30 ml DAILYPRN PRN PO CONSTIPATION 11/08/19 22:00 Miscellaneous (Unresolved Clarification Entry) SEE LABEL COMMENTS DAILY XX 12/05/19 09:00 12/05/19 13:05 DC Miscellaneous (Unresolved Clarification Entry) SEE LABEL COMMENTS DAILY XX 12/09/19 09:00 12/10/19 11:10 DC Oxcarbazepine (Trileptal) 75 mg BID PO 11/09/19 21:00 11/09/19 11:42 DC Oxcarbazepine (Trileptal) 150 mg QHS PO 11/09/19 21:00 11/11/19 10:16 DC 11/10/19 20:15 Oxcarbazepine (Trileptal) 300 mg BID PO 11/16/19 21:00 11/24/19 10:24 DC 11/24/19 10:09 Oxcarbazepine (Trileptal) 300 mg QHS PO 11/11/19 21:00 11/16/19 11:29 DC 11/15/19 20:37 Oxcarbazepine (Trileptal) 450 mg BID PO 11/24/19 21:00 11/28/19 13:29 DC 11/28/19 09:34 Prazosin HCl (Minipress) 1 mg QHS PO 11/21/19 21:00 12/25/19 15:37 DC 12/24/19 20:44 Prazosin HCl (Minipress) 1 mg QHS PO 12/25/19 21:00 Trazodone HCl (Desyrel) 50 mg QHSP PRN PO INSOMNIA 11/08/19 22:00 11/21/19 13:50 DC 11/20/19 23:30 Trazodone HCl (Desyrel) 100 mg QHSP PRN PO INSOMNIA 11/21/19 14:00 12/26/19 21:27 Venlafaxine HCl (Effexor Xr) 37.5 mg DAILY PO 11/10/19 09:00 11/12/19 11:24 DC 11/12/19 08:16 Allergies Coded Allergies: haloperidol (Verified Adverse Reaction, Intermediate, EPS RXN WITH UNSPECIFIED ANTIPSYCHOTROPICS, 11/08/19) aripiprazole (Verified Adverse Reaction, Mild, 11/08/19) nauseous quetiapine (Verified Adverse Reaction, Mild, 11/08/19) nauseous MARC SKELTON DO Dec 27, 2019 09:50
[2019-12-27] MEDS: hydrOXYzine 25 MG TAB PO PRN (17:56)
[2019-12-27] MEDS: traZODone 100 MG TAB PO PRN (20:26)
[2019-12-27] MEDS: PRAZOSIN 1 MG CAP PO SCH (20:30)
[2019-12-28 06:17] VITALS: BP 119/53
[2019-12-28] MEDS: CARIPRAZINE 3MG CAPSULE (VRAYLAR) PO SCH (08:31)
[2019-12-28] MEDS ORDERED: TRAZ-257 PO (12:09)
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
== END 2019-12-28 13:50 | disposition home or self-care (01) | DRG 753 ==
LOC: M ED 20:08 → M ED INP 21:55 → M PSY 22:45
PROVIDERS: ADMIT Psychiatry & Neurology Addiction Medicine; ATTEND Psychiatry & Neurology Addiction Medicine
DX: F31.32 Bipolar disorder, current episode depressed, moderate (principal); Z79.899 Other long term (current) drug therapy; Z88.2 Allergy status to sulfonamides; Z62.810 Personal history of physical and sexual abuse in childhood; Z62.811 Personal history of psychological abuse in childhood; R45.851 Suicidal ideations; F51.4 Sleep terrors [night terrors]; G47.00 Insomnia, unspecified; F43.12 Post-traumatic stress disorder, chronic

== ENCOUNTER 2020-01-03 14:57 | Emergency (ER) | payer MEDICAID, OTHER ==
[~2020-01-03] VITALS: Ht 188 cm; Wt 104.7 kg
[~2020-01-03 14:57] MED LIST changes: +TRAZ-257 PO; +VRAY3CAP PO
[2020-01-03 17:09] LABS: HEMATOCRIT 43.4 % (42.0-52.0); HEMOGLOBIN 14.4 g/dl (13.5-17.5); MEAN CORPUSCULAR HEMOGLOBIN 28.7 pg (27.0-33.0); MEAN CORPUSCULAR HGB CONC 33.2 g/dl (32.0-36.5); MEAN CORPUSCULAR VOLUME 86.5 fl (80.0-96.0); PLATELET COUNT, AUTOMATED 320 10^3/uL (150-450); RED BLOOD COUNT 5.02 10^6/uL (4.30-6.10); WHITE BLOOD COUNT 6.7 10^3/uL (4.0-10.0)
[2020-01-03 17:21] LABS: AMPHETAMINES LEVEL URINE NEGATIVE (NEGATIVE); BARBITURATES URINE NEGATIVE (NEGATIVE); BENZODIAZEPINES URINE NEGATIVE (NEGATIVE); CANNABINOIDS URINE NEGATIVE (NEGATIVE); COCAINE METABOLITE URINE NEGATIVE (NEGATIVE); METHADONE URINE NEGATIVE (NEGATIVE); OPIATES URINE NEGATIVE (NEGATIVE); PHENCYCLIDINE URINE NEGATIVE (NEGATIVE)
[2020-01-03 17:32] LABS: ACETAMINOPHEN LEVEL < 2.0 UG/ML (10.0-30.0); ALBUMIN 3.9 GM/DL (3.2-5.2); ALT/SGPT 14 U/L (12-78); BILIRUBIN,DIRECT < 0.1 MG/DL (0.0-0.2); BILIRUBIN,TOTAL 0.4 MG/DL (0.2-1.0); BLOOD UREA NITROGEN 15 MG/DL (7-18); CALCIUM LEVEL 9.2 MG/DL (8.5-10.1); CARBON DIOXIDE LEVEL 29 MEQ/L (21-32); CHLORIDE LEVEL 110 MEQ/L (98-107); CREATININE FOR GFR 1.02 MG/DL (0.70-1.30); ETHYL ALCOHOL (ETHANOL) < 0.003 % (0.000-0.010); GLOMERULAR FILTRATION RATE > 60.0 (>60); GLUCOSE, FASTING 85 MG/DL (70-100); POTASSIUM SERUM 4.5 MEQ/L (3.5-5.1); SALICYLATE LEVEL < 1.7 MG/DL (5.0-30.0); SODIUM LEVEL 141 MEQ/L (136-145); TOTAL PROTEIN 7.3 GM/DL (6.4-8.2)
[2020-01-04] MEDS ORDERED: TRAZ-189 PO (00:42)
[2020-01-04] MEDS ORDERED: VRAY3CAP PO (00:42)
[2020-01-04] MEDS ORDERED: CARIPRAZINE 3MG CAPSULE (VRAYLAR) PO SCH (09:00)
[2020-01-04] MEDS ORDERED: traZODone 100 MG TAB PO SCH (21:00)
[2020-01-05 05:13] VITALS: BP 120/59
--- NOTE | 2020-01-06 07:54 | ECGEPIP ---
[facility] - ED Test Date: 2020-01-04 Pat Name: JARON HA Department: Room: - Gender: Male Rehabilitation Center Manager: RICHARD : 1995 Requested By: Amber Park Order Number: [id number] Reading MD: Amber Park Measurements Intervals [place] Rate: 55 P: 43 NE: 145 QRS: 35 QRSD: 110 T: 33 QT: 385 QTc: 370 Interpretive Statements SINUS BRADYCARDIA DECREASED RATE 08/14/19 Electronically Signed on 01-06-2020 7:54:17 EDT by Amber Park
== END 2020-01-05 05:15 ==
LOC: M ED 14:57
DX: R45.851 Suicidal ideations (principal); F31.9 Bipolar disorder, unspecified; F19.10 Other psychoactive substance abuse, uncomplicated; Z20.828 Contact with and (suspected) exposure to other viral communicable diseases; R00.1 Bradycardia, unspecified; Z88.8 Allergy status to other drugs, medicaments and biological substances; Z79.899 Other long term (current) drug therapy
CPT/HCPCS: 80048; 80076; 80307; 84443; 85027; 93005; 99284; G0480; U0002

== ENCOUNTER 2020-05-09 18:54 | Emergency (ER) | payer OTHER ==
[~2020-05-09] VITALS: Ht 188 cm; Wt 115.4 kg
[~2020-05-09 18:54] MED LIST changes: +TRAZ-189 PO
[2020-05-09] MEDS ORDERED: CARB1TAB20 PO (19:02)
[2020-05-09] MEDS ORDERED: TRAZ1TAB14 PO (19:02)
[2020-05-09] MEDS ORDERED: VENL150C43 PO (19:02)
[2020-05-09 19:35] LABS: HEMATOCRIT 44.8 % (42.0-52.0); HEMOGLOBIN 15.1 g/dl (13.5-17.5); MEAN CORPUSCULAR HEMOGLOBIN 28.6 pg (27.0-33.0); MEAN CORPUSCULAR HGB CONC 33.7 g/dl (32.0-36.5); MEAN CORPUSCULAR VOLUME 84.8 fl (80.0-96.0); PLATELET COUNT, AUTOMATED 308 10^3/uL (150-450); RED BLOOD COUNT 5.28 10^6/uL (4.30-6.10); WHITE BLOOD COUNT 6.8 10^3/uL (4.0-10.0)
[2020-05-09 20:11] LABS: AMPHETAMINES LEVEL URINE NEGATIVE (NEGATIVE); BARBITURATES URINE NEGATIVE (NEGATIVE); BENZODIAZEPINES URINE NEGATIVE (NEGATIVE); CANNABINOIDS URINE NEGATIVE (NEGATIVE); COCAINE METABOLITE URINE NEGATIVE (NEGATIVE); METHADONE URINE NEGATIVE (NEGATIVE); OPIATES URINE NEGATIVE (NEGATIVE); PHENCYCLIDINE URINE NEGATIVE (NEGATIVE)
[2020-05-09 20:20] LABS: ACETAMINOPHEN LEVEL < 2.0 UG/ML (10.0-30.0); ALBUMIN 4.2 GM/DL (3.2-5.2); ALT/SGPT 24 U/L (12-78); BILIRUBIN,DIRECT < 0.1 MG/DL (0.0-0.2); BILIRUBIN,TOTAL 0.2 MG/DL (0.2-1.0); BLOOD UREA NITROGEN 20 MG/DL (7-18); CALCIUM LEVEL 8.7 MG/DL (8.5-10.1); CARBON DIOXIDE LEVEL 28 MEQ/L (21-32); CHLORIDE LEVEL 106 MEQ/L (98-107); CREATININE FOR GFR 1.13 MG/DL (0.70-1.30); ETHYL ALCOHOL (ETHANOL) < 0.003 % (0.000-0.010); GLOMERULAR FILTRATION RATE > 60.0 (>60); GLUCOSE, FASTING 125 MG/DL (70-100); POTASSIUM SERUM 4.2 MEQ/L (3.5-5.1); SALICYLATE LEVEL < 1.7 MG/DL (5.0-30.0); SODIUM LEVEL 139 MEQ/L (136-145); TOTAL PROTEIN 7.8 GM/DL (6.4-8.2)
[2020-05-09 22:10] LABS: CARBAMAZEPINE (TEGRETOL) LEVEL 3.2 UG/ML (4.0-10.0)
[2020-05-09 22:24] LABS: RSV AMPLIFICATION NEGATIVE (NEGATIVE)
[2020-05-10 01:49] VITALS: BP 119/65
--- NOTE | 2020-05-10 17:09 | ECGEPIP ---
[facility] - ED Test Date: 2020-05-09 Pat Name: JARON HA Department: Room: - Gender: Male Freelance Art Director: ED : 1995 Requested By: DONALDO Gong Order Number: [id number] Reading MD: Amber Park Measurements Intervals Rose Rate: 64 P: 65 FL: 158 QRS: 33 QRSD: 98 T: 33 QT: 364 QTc: 375 Interpretive Statements Normal sinus rhythm increased rate 01/04/20 Electronically Signed on 05-10-2020 17:09:34 EST by Amber Park
== END 2020-05-10 01:55 | disposition short-term general hospital (02) ==
LOC: M ED 18:54
DX: R45.851 Suicidal ideations (principal); F33.9 Major depressive disorder, recurrent, unspecified; Z79.899 Other long term (current) drug therapy; Z88.8 Allergy status to other drugs, medicaments and biological substances

== ENCOUNTER → 2024-11-29 | Outpatient (REF) | payer OTHER, MEDICAID ==
[~2024-11-29] MED LIST changes: +CARB-19 PO; -EFFE37.5 PO; +EFFE37.52 PO; -PROZ20CA11 PO; +PROZ20CA12 PO; +TRAZ1TAB14 PO; +VENL150C43 PO
[2024-11-29 13:30] LABS: BASO # 0.0 10^3/uL (0.0-0.2); BASO % 0.3 % (0.0-1.0); EOS # 0.1 10^3/uL (0.0-0.5); EOS % 2.0 % (0.0-3.0); LYMPH # 3.0 10^3/uL (1.5-5.0); LYMPH % 45.7 % (24.0-44.0); MONO # 0.7 10^3/uL (0.0-0.8); MONO % 10.6 % (2.0-8.0); NEUTROPHILS # 2.7 10^3/uL (1.5-8.5); NEUTROPHILS % 41.1 % (36.0-66.0); PLATELET COUNT, AUTOMATED 319 10^3/uL (150-450)
[2024-11-29 13:36] LABS: ALT/SGPT 26 U/L (7.0-40); AST/SGOT 16 U/L (<34); CALCIUM LEVEL 9.3 MG/DL (8.5-10.1); CARBON DIOXIDE LEVEL 29 MMOL/L (20-31); CHLORIDE LEVEL 103 MMOL/L (98-107); CHOLESTEROL LEVEL 219 MG/DL (<200); CHOLESTEROL RISK RATIO 4.01 (<5); CREATININE FOR GFR 0.93 MG/DL (0.70-1.30); GLOMERULAR FILTRATION RATE > 90.0 (>60); LDL CHOLESTEROL 141.3 MG/DL (<100); NON-HDL-C 164.5 MG/DL; POTASSIUM SERUM 4.5 MMOL/L (3.5-5.1); SODIUM LEVEL 137 MMOL/L (136-145); TRIGLYCERIDES LEVEL 116 MG/DL (<150)
[2024-11-29 13:40] LABS: FREE T4 0.95 NG/DL (0.89-1.76)
[2024-11-29 13:41] LABS: TESTOSTERONE 523 NG/DL (241-827)
[2024-11-29 13:42] LABS: ESTIMATED AVERAGE GLUCOSE 108.0 MG/DL (60-110)
== END ==
LOC: M LAB REF 12:29
PROVIDERS: ATTEND Family Medicine Addiction Medicine
DX: R53.83 Other fatigue (principal)